=== PATIENT | female | born 1975 | race Caucasian/White ===

== ENCOUNTER 2020-03-20 12:53 | Emergency (ER) | payer OTHER, SELFPAY ==
[2020-03-20 13:09] VITALS: BP 133/77; PULSE 92; RESP 16; TEMP 37.1; O2SAT 100; BMI 28.0
--- NOTE | 2020-03-20 13:56 | ED.GENADULT ---
HPI - General Adult General Chief complaint: General Medical Stated complaint: ?uti Time Seen by Provider: 03/20/20 13:49 Source: patient Mode of arrival: ambulatory History of Present Illness HPI narrative: 44yo F w/PMHx breast CA, neurofibromatosis, cognitive disability, chronic UTIs on Macrobid presenting to ED complaining of dysuria x1 week, fever T-max 102? last night, and left lower quadrant abdominal pain worsening since last night. Family member reports Macrobid no longer covered by insurance, patient has not been taking x1 month. Denies nausea, vomiting, diarrhea, hematuria, vaginal bleeding/discharge, flank pain Related Data Previous Rx's Medication Instructions Recorded sulfamethoxazole 400 1 tab PO BEDTIME 90 Days #90 tab 03/06/20 mg-trimethoprim 80 mg tablet Allergies Allergy/AdvReac Type Severity Reaction Status Date / Time No Known Allergies Allergy Unverified 12/28/19 17:07 [No Known Allergies*] Review of Systems Review of Systems: Constitutional: +Fever, No Chills, No Night Sweats, No Fatigue, No Malaise Cardiovascular: No Chest Pain, No SOB, No Dyspnea on Exertion Respiratory: No Cough, No Sputum, No Wheezing, No Dyspnea Gastrointestinal: No Nausea, No Vomiting, No Diarrhea, No Constipation, + Abdominal pain Genitourinary: No irregular bleeding, +Dysuria, No Urinary Frequency, No Hematuria, No Urgency, No Flank Pain, No Urinary Flow Changes, No Hesitancy Musculoskeletal: No joint pain, No Myalgias, No Joint Swelling Skin: No Skin Lesions, No rash Yes all other systems are reviewed and are negative [facility] Past Medical History Attestation statement: The following information was validated with the patient. Medical History (Updated 03/20/20 @ 15:00 by BRIJESH Clarke) Breast CA Neurofibromatosis Social History Social History Advance Directives: No Advance Directives Information Provided: No Physical Exam Vital Signs: Vital Signs: Last Vital Signs Temp 98.9 F 03/20/20 15:13 Pulse 76 03/20/20 15:13 Resp 18 03/20/20 15:13 BP 124/65 03/20/20 15:13 Pulse Ox 97 03/20/20 15:13 Body Mass Index 28.0 Const: General: cooperative and healthy appearing Limitations: no limitations HENMT: Head: Yes normal to inspection Ears: hearing grossly normal bilaterally General nose exam: Normal external nose present Face and sinus: Yes normal facial exam Eyes: General: appearance normal, both eyes and all related structures EOM: EOMs intact bilaterally Neck: Neck: Yes normal visual inspection Resp: Effort & Inspection: normal respiratory effort Cardio: Rate: regular rate GI: Inspection: Yes normal to inspection Palpation (GI): Soft to palpation, nontender, no guarding and not rigid : General: Yes no CVA tenderness Back/Spine/Pelvis: Back: no CVA tenderness Skin: Rashes: no rashes Wounds: no wounds Neuro: Gait exam (Neuro): Normal gait present Extrem: General: Yes normal to inspection Course Course Course Narrative: -no leukocytosis, H&H at baseline -UA infected > prior urine cultures grew E coli and Klebsiella, Klebsiella resistant to Macrobid, will initiate Ceftin and have patient follow-up with Urology/PCP -[id number]-- AST/ALT mildly elevated, renal function WNL, labs otherwise unremarkable Results discussed with patient and family at bedside including close follow-up with Urology, and worrisome signs and symptoms/strict return precautions. They verbalized understanding of feel safe for discharge home Medical Decision Making [facility] Narrative Medical decision making narrative: 44yo F w/PMHx breast CA, neurofibromatosis, cognitive disability, chronic UTIs on Macrobid presenting to ED complaining of dysuria x1 week, fever T-max 102? last night, and left lower quadrant abdominal pain worsening since last night. On exam VSS, NAD, afebrile, nontoxic appearing, abdomen soft/nontender, no CVAT. Concern for UTI. Low concern for renal stone/pyelo, diverticulitis, or ovarian pathology without tenderness on exam Plan: Labs, UA, reassess. Low concern for severe sepsis Lab Data Result diagrams: 03/20/20 14:34 03/20/20 15:11 Labs: Lab Results 03/20/20 03/20/20 03/20/20 Range/Units 14:34 14:34 14:34 WBC 8.8 (4.8-10.8) X10*3/uL RBC 3.82 L (4.20-5.50) X10*6/uL Hgb 11.5 L (12.0-16.0) g/dl Hct 34.6 L (37-47) % MCV 90.6 (80-98) fL MCH 30.1 (27.0-33.0) pg MCHC 33.2 (31.0-35.0) g/dl RDW 12.7 (11.0-16.0) % Plt Count 195 (160-400) X10*3/uL MPV 11.7 (9.4-12.3) fL Immature Gran % (Auto) 0.3 (0.0-0.4) % Neut % (Auto) 79.3 H (45-73) % Lymph % (Auto) 10.0 L (20-40) % [place] % (Auto) 10.0 (2-11) % Eos % (Auto) 0.1 (0-4) % Baso % (Auto) 0.3 (0-2) % Lymph # (Auto) 0.9 L (1.2-4.9) X10*3/uL [place] # (Auto) 0.9 (0.1-1.2) X10*3/uL Eos # (Auto) 0.0 (0.0-0.4) X10*3/uL Baso # (Auto) 0.0 (0.0-0.2) X10*3/uL Abs Immat Gran (auto) 0.03 (0.00-0.03) X10*3/uL Absolute Neuts (auto) 6.9 (2.0-8.3) X10*3/uL Absolute Nucleated RBC 0.000 (0.0-0.012) X10*3/uL Nucleated RBC % (auto) 0.0 (0.0-0.2) /100WBC Hold Blue Top SEE NOTE Sodium Cancelled Potassium Cancelled Chloride Cancelled Carbon Dioxide Cancelled Anion Gap Cancelled BUN Cancelled Creatinine Cancelled Estim Creat Clear Calc Cancelled Estimated GFR Cancelled Random Glucose Cancelled Calcium Cancelled Magnesium Cancelled Total Bilirubin Cancelled Direct Bilirubin Cancelled AST Cancelled ALT Cancelled Alkaline Phosphatase Cancelled Total Protein Cancelled Albumin Cancelled Lipase Cancelled Urine Color Urine Appearance Urine pH (5.0-8.0) Ur Specific [place] (1.005-1.025) Urine Protein (NEG-TRACE) MG/DL Urine Glucose (UA) (NEG) MG/DL Urine Ketones (NEG) MG/DL Urine Blood (NEG) Urine Nitrite (NEG) Ur Leukocyte Esterase (NEG) Urine RBC (0) /HPF Urine WBC (0-4) /HPF Ur Squamous Epith Cells /LPF Urine Bacteria /LPF 03/20/20 03/20/20 Range/Units 14:34 15:11 WBC (4.8-10.8) X10*3/uL RBC (4.20-5.50) X10*6/uL Hgb (12.0-16.0) g/dl Hct (37-47) % MCV (80-98) fL MCH (27.0-33.0) pg MCHC (31.0-35.0) g/dl RDW (11.0-16.0) % Plt Count (160-400) X10*3/uL MPV (9.4-12.3) fL Immature Gran % (Auto) (0.0-0.4) % Neut % (Auto) (45-73) % Lymph % (Auto) (20-40) % [place] % (Auto) (2-11) % Eos % (Auto) (0-4) % Baso % (Auto) (0-2) % Lymph # (Auto) (1.2-4.9) X10*3/uL [place] # (Auto) (0.1-1.2) X10*3/uL Eos # (Auto) (0.0-0.4) X10*3/uL Baso # (Auto) (0.0-0.2) X10*3/uL Abs Immat Gran (auto) (0.00-0.03) X10*3/uL Absolute Neuts (auto) (2.0-8.3) X10*3/uL Absolute Nucleated RBC (0.0-0.012) X10*3/uL Nucleated RBC % (auto) (0.0-0.2) /100WBC Hold Blue Top Sodium 137 Potassium 3.6 Chloride 104 Carbon Dioxide 24 Anion Gap 13 BUN 8 L Creatinine 0.77 Estim Creat Clear Calc 85.1 Estimated GFR > 60 Random Glucose 84 Calcium 8.3 L Magnesium 1.9 Total Bilirubin 0.9 Direct Bilirubin 0.4 AST 47 H ALT 48 H Alkaline Phosphatase 56 Total Protein 7.4 Albumin 4.1 Lipase 51 Urine Color YELLOW Urine Appearance CLOUDY Urine pH 6.0 (5.0-8.0) Ur Specific [place] 1.020 (1.005-1.025) Urine Protein NEG (NEG-TRACE) MG/DL Urine Glucose (UA) NEG (NEG) MG/DL Urine Ketones 40 (NEG) MG/DL Urine Blood 2+ H (NEG) Urine Nitrite POS H (NEG) Ur Leukocyte Esterase 2+ H (NEG) Urine RBC 1-4 (0) /HPF Urine WBC 30-49 H (0-4) /HPF Ur Squamous Epith Cells 1+ /LPF Urine Bacteria 3+ /LPF Discharge Plan Discharge Clinical Impression: Urinary tract infection Patient Disposition: Home, Self-Care Instructions: Urinary Tract Infection in Women (ED) Prescriptions: No Action sulfamethoxazole-trimethoprim [Bactrim] 400-80 mg tablet 1 tab PO BEDTIME 90 Days Qty: 90 RF: 1
[2020-03-20] MEDS: 0.9 % Sodium Chloride 1,000 ML 999 ML IVCONT (14:35)
[2020-03-20 14:42] LABS: Basophils Percent Auto 0.3 % (0-2); Eosinophils Percent Auto 0.1 % (0-4); Glucose Urine UA NEG (NEG); Hematocrit 34.6 % (37-47); Hemoglobin 11.5 g/dl (12.0-16.0); Imm Gran Abs Auto 0.03 X10*3/uL (0.00-0.03); Imm Gran Pct Auto 0.3 % (0.0-0.4); Leukocyte Esterase Urine 2+ (NEG); Lymphocytes Absolute Auto 0.9 X10*3/uL (1.2-4.9); MANUAL DIFF FLAG NO; Mean Corpuscular HGB Conc 33.2 g/dl (31.0-35.0); Mean Corpuscular Hemoglobin 30.1 pg (27.0-33.0); Mean Corpuscular Volume 90.6 fL (80-98); Mean Platelet Volume 11.7 fL (9.4-12.3); Monocytes Absolute Auto 0.9 X10*3/uL (0.1-1.2); Neutrophils Absolute Auto 6.9 X10*3/uL (2.0-8.3); Neutrophils Percent Auto 79.3 % (45-73); Nitrite Urine POS (NEG); Platelet Count 195 X10*3/uL (160-400); Red Blood Count 3.82 X10*6/uL (4.20-5.50); Red Cell Distribution Width 12.7 % (11.0-16.0); Urine Blood 2+ (NEG); Urine Ketones 40 MG/DL (NEG); Urine Protein NEG (NEG-TRACE); White Blood Count 8.8 X10*3/uL (4.8-10.8)
[2020-03-20 14:44] LABS: Appearance Urine CLOUDY; Color Urine YELLOW
[2020-03-20 14:49] LABS: Bacteria Urine 3+ /LPF; Squamous Epithelial Cell Urine 1+ /LPF; WBC Urine 30-49 /HPF (0-4)
[2020-03-20 15:13] VITALS: BP 124/65; PULSE 76; RESP 18; TEMP 37.2; O2SAT 97
[2020-03-20 15:57] LABS: Alanine Aminotransferase 48 U/L (0-31); Albumin Level 4.1 g/dL (3.5-5.0); Alkaline Phosphatase 56 U/L (39-117); Anion Gap 13 (12-20); Aspartate Amino Transferase 47 U/L (5-31); Bilirubin Direct 0.4 mg/dL (0.0-0.5); Bilirubin Total 0.9 mg/dL (0.0-1.0); Blood Urea Nitrogen 8 mg/dL (9-16); Calcium 8.3 mg/dL (8.4-10.2); Carbon Dioxide 24 mmol/L (22-29); Chloride 104 mmol/L (96-108); Creatinine Clr Calc Pharmacy 85.1; Estimated Glomerular Filt Rate > 60; Glucose Random 84 mg/dL (60-115); Lipase 51 U/L (8-78); Magnesium 1.9 mg/dL (1.6-2.6); Potassium 3.6 mmol/l (3.3-5.1); Sodium 137 mmol/L (135-145); Total Protein 7.4 g/dL (6.5-8.0)
[2020-03-20 16:35] VITALS: BP 132/78; PULSE 85; RESP 18; TEMP 37.7; O2SAT 100
== END 2020-03-20 17:08 | disposition home or self-care (01) ==
PROVIDERS: Physician Assistant; Emergency Provider Emergency Medicine; PCP Internal Medicine
DX: N39.0 Urinary tract infection, site not specified (principal); R10.32 Left lower quadrant pain; Z85.3 Personal history of malignant neoplasm of breast; Z87.440 Personal history of urinary (tract) infections
CPT/HCPCS: 36415; 80048; 80076; 81001; 83690; 83735; 85025; 87086; 87088; 87186; 96360; 99284

== ENCOUNTER → 2020-04-02 13:57 | Outpatient (BNVA) | payer OTHER, SELFPAY | PROVIDERS: PCP Internal Medicine; Visit Provider Urology | DX: N39.0 Urinary tract infection, site not specified (principal) | CPT/HCPCS: 81002; 99212 ==

== ENCOUNTER 2020-04-17 10:09 | Outpatient (REF) | payer OTHER, SELFPAY | END 2020-04-17 10:10 | disposition home or self-care (01) | LOC: HO.LAB 10:09 | PROVIDERS: Visit Provider Internal Medicine | DX: Z20.828 Contact with and (suspected) exposure to other viral communicable diseases (principal) | CPT/HCPCS: 36415; C9803; U0003 ==

== ENCOUNTER → 2020-06-25 10:54 | Outpatient (BNVA) | payer OTHER, SELFPAY | PROVIDERS: PCP Internal Medicine; Visit Provider Surgery | DX: D05.12 Intraductal carcinoma in situ of left breast (principal) | CPT/HCPCS: 99212 ==

== ENCOUNTER 2020-08-02 12:03 | Outpatient (REF) | payer OTHER, SELFPAY ==
--- NOTE | ~2020-08-02 | MM_ITS ---
EXAMINATION: MM DIAGNOSTIC DIGITAL BREAST TOMOSYNTHESIS, LEFT CLINICAL INFORMATION: Left breast DCIS 2019. Probable benign calcifications near surgical scar. COMPARISON: Mammography: 11/22/2019, 03/23/2019, 03/01/2019, 05/16/2018, 05/10/2017 TECHNIQUE: Digital breast tomosynthesis is performed in both the craniocaudal and mediolateral oblique views along with computer-aided detection (CAD). Synthesized 2D images are generated from the tomosynthesis. Magnification CC and magnification ML views are also provided. FINDINGS: There are scattered areas of fibroglandular density (ACR BI-RADS breast composition Category b). There is stable scar central upper outer left breast similar to prior exam. There is no interval mass or architectural abnormality. Some chronic punctate calcifications are again noted left breast. Calcifications are decreased from the presurgical diagnostic mammography as expected. Results are provided to the patient at time of visit by the technologist. MM/MM tomosynthesis diagnostic LT IMPRESSION: Postsurgical changes left breast. Residual calcifications similar to prior exams. ASSESSMENT: BI-RADS 2: Benign RECOMMENDATION: Annual bilateral mammography, due in 6 months. This patient's information was entered into a reminder system with a target due date for their next mammogram.
== END 2020-08-02 12:04 | disposition home or self-care (01) ==
LOC: HO.MAMMO 12:03
PROVIDERS: Visit Provider Internal Medicine
DX: R92.1 Mammographic calcification found on diagnostic imaging of breast (principal)
CPT/HCPCS: 77061; 77065

== ENCOUNTER 2020-09-28 12:33 | Emergency (ER) | payer OTHER, SELFPAY ==
[2020-09-28 13:44] VITALS: BP 149/86; PULSE 73; RESP 16; TEMP 37.2; O2SAT 100; BMI 26.5
[2020-09-28] MEDS: cephALEXin 500 MG CAPSULE PO (14:41)
[2020-09-28] MEDS: Sulfacetamide Sodium 10 % Oph 15 ML DRBTL 2 DROP EYE-RIGHT (14:41)
--- NOTE | 2020-09-28 14:46 | ED.GENADULT ---
HPI - General Adult General Chief complaint: Eye Problems Stated complaint: swollen rt eye Time Seen by Provider: 09/28/20 14:28 History of Present Illness HPI narrative: Patient complains of redness mild swelling and mild discomfort around the right eye as well as a discharge from the eye which started this morning There is no vision loss there is no pain in the eye itself there is no photophobia, no fever no chills Related Data Home Medications Medication Instructions Recorded Confirmed tamoxifen 20 mg PO DAILY 04/23/20 07/09/20 tamsulosin 0.4 mg capsule 0.4 mg PO DAILY 06/25/20 07/09/20 Previous Rx's Medication Instructions Recorded cephalexin 500 mg PO QID 7 Days #28 tab 09/28/20 sulfacetamide sodium 2 drp OPHTHALMIC-LEFT Q3H 5 Days 09/28/20 #5 ml Allergies Allergy/AdvReac Type Severity Reaction Status Date / Time No Known Allergies Allergy Verified 07/09/20 14:13 [No Known Allergies*] Review of Systems Review of Systems: Positive for right eye redness and discharge as well as redness and mild swelling below the right eye Negatives are no fever no chills no dizziness no weakness no fainting no feeling faint no headache no ear pain no eye pain or vision loss no photophobia no runny nose no sore throat no cough no other rash Yes all other systems are reviewed and are negative PMFSH Past Medical History Source: nursing notes reviewed Medical History (Updated 09/28/20 @ 14:36 by BRIJESH Wheeler) Breast CA Cellulitis Cognitive deficits Congenital defect Migraine headache Neurofibromatosis Recurrent UTI Surgical History History of bilateral breast biopsy (06/27/15) History of excision of lesion History of excision of mass (09/2017) History of left breast biopsy (03/01/19) History of lithotripsy (03/2018) History of local excision of skin lesion (08/17/17) History of lumpectomy of left breast (03/23/19) History of right breast biopsy (08/2015) History of tubal ligation Family History Family History (Updated 07/09/20 @ 14:17 by Rhiannon Bloom MD) Father History of diabetes mellitus CAD (coronary artery disease) Mother History of hypertension History of diabetes mellitus Social History Social History Alcohol intake: never Advance Directives: No Advance Directives Information Provided: No Patient : No Physical Exam Vital Signs: Vital Signs: Last Vital Signs Temp 98.9 F 09/28/20 13:44 Pulse 73 09/28/20 13:44 Resp 16 09/28/20 13:44 BP 149/86 H 09/28/20 13:44 Pulse Ox 100 09/28/20 13:44 Body Mass Index 26.5 General appearance is comfortable no acute distress The eye exam visual acuity is is 20/40 bilateral The right eye was red in the conjunctiva, there was no photophobia the pupils are equal round reactive to light extraocular motions were intact The periorbital tissue below the right eye is mildly red and mildly tender, the skin is intact The left eye was normal in appearance Neck is supple Respiratory no distress Extremities full range of motion x4 Skin no other rash Course Course Course Narrative: Patient is treated for possible early periorbital cellulitis, doubt allergies as it is only in 1 eye and she is also treated for conjunctivitis with sulfacetamide Discharge Plan Discharge Clinical Impression: Periorbital cellulitis of right eye Conjunctivitis Qualifiers: Conjunctivitis type: unspecified Laterality: right Qualified Code(s): H10.9 - Unspecified conjunctivitis Patient Disposition: Home, Self-Care Additional Instructions: We are treating for an infection of the skin around the eye as well as conjunctivitis in the eye Use antibiotic and drops as prescribed Follow with primary doctor in 2-3 days if not better or if he is unavailable return to us for recheck Return any time for eye pain, vision loss, fever, chills, spreading redness, any worse condition or any concerns Prescriptions: New cephalexin 500 mg tablet 500 mg PO QID 7 Days Qty: 28 RF: 0 sulfacetamide sodium 10 % drops 2 drp ophthalmic-Left Q3H 5 Days Qty: 5 RF: 0 No Action tamoxifen 20 mg Tablet 20 mg PO DAILY RF: 0 tamsulosin 0.4 mg capsule 0.4 mg PO DAILY RF: 0 Interventions: ED Discharge Assessment Last Done: 09/28/20 14:45 Discharge Date/Time: 09/28/20 14:45
== END 2020-09-28 14:45 | disposition home or self-care (01) ==
PROVIDERS: Emergency Provider Emergency Medicine; PCP Internal Medicine
DX: L03.213 Periorbital cellulitis (principal); H10.9 Unspecified conjunctivitis
CPT/HCPCS: 99283

== ENCOUNTER 2020-10-04 10:23 | Outpatient (REF) | payer OTHER, SELFPAY ==
[2020-10-04 12:05] LABS: Alanine Aminotransferase 18 U/L (0-31); Alkaline Phosphatase 72 U/L (39-117); Anion Gap 11 (12-20); Aspartate Amino Transferase 18 U/L (5-31); Bilirubin Total 0.6 mg/dL (0.0-1.0); Blood Urea Nitrogen 11 mg/dL (9-16); Carbon Dioxide 24 mmol/L (22-29); Chloride 108 mmol/L (96-108); Cholesterol 198 mg/dL; Estimated Glomerular Filt Rate > 60; Glucose Fasting 79 mg/dL (60-99); HDL Cholesterol 52 mg/dL; LDL Cholesterol Calculated 131 mg/dl; Potassium 4.1 mmol/L (3.3-5.1); Sodium 139 mmol/L (135-145); Total Protein 7.1 g/dL (6.5-8.0); Triglycerides 79 mg/dL
== END 2020-10-04 10:24 | disposition home or self-care (01) ==
LOC: HO.LAB 10:23
PROVIDERS: PCP Internal Medicine; Visit Provider Internal Medicine
DX: Q85.00 Neurofibromatosis, unspecified (principal); E78.5 Hyperlipidemia, unspecified
CPT/HCPCS: 36415; 80053; 80061

== ENCOUNTER → 2020-10-21 10:20 | Outpatient (BNV) | payer OTHER, SELFPAY | PROVIDERS: PCP Internal Medicine; Visit Provider Internal Medicine | DX: D05.12 Intraductal carcinoma in situ of left breast (principal) | CPT/HCPCS: 99213; 99214; G2211 ==

== ENCOUNTER 2020-11-22 12:47 | Outpatient (REF) | payer OTHER, SELFPAY | END 2020-11-22 12:48 | disposition home or self-care (01) | LOC: HO.LAB 12:47 | PROVIDERS: Visit Provider Advanced Practice Midwife | DX: Z01.419 Encounter for gynecological examination (general) (routine) without abnormal findings (principal); R30.0 Dysuria; D05.12 Intraductal carcinoma in situ of left breast; Z79.899 Other long term (current) drug therapy | CPT/HCPCS: 87086; 87088; 87186 ==

== ENCOUNTER 2020-12-18 13:01 | Outpatient (REF) | payer OTHER, SELFPAY ==
[2020-12-18 15:11] LABS: Appearance Urine CLEAR; Color Urine STRAW; Glucose Urine UA NEG (NEG); Leukocyte Esterase Urine NEG (NEG); Nitrite Urine NEG (NEG); Specific Gravity - Urine <= 1.005 (1.005-1.025); Urine Blood NEG (NEG); Urine Ketones NEG (NEG); Urine Protein NEG (NEG-TRACE)
== END 2020-12-18 13:02 | disposition home or self-care (01) ==
LOC: HO.LAB 13:01
PROVIDERS: PCP Internal Medicine; Visit Provider Internal Medicine
DX: N39.0 Urinary tract infection, site not specified (principal)
CPT/HCPCS: 81003

== ENCOUNTER → 2020-12-25 14:02 | Outpatient (BNVA) | payer OTHER, SELFPAY | PROVIDERS: PCP Internal Medicine | DX: N39.0 Urinary tract infection, site not specified (principal) | CPT/HCPCS: Q3014 ==

== ENCOUNTER → 2020-12-31 11:29 | Outpatient (BNVA) | payer OTHER, SELFPAY | PROVIDERS: PCP Internal Medicine; Visit Provider Surgery | DX: D05.12 Intraductal carcinoma in situ of left breast (principal) | CPT/HCPCS: 99212 ==

== ENCOUNTER 2021-01-06 13:59 | Outpatient (REF) | payer OTHER, SELFPAY | END 2021-01-06 14:00 | disposition home or self-care (01) | LOC: HO.LAB 13:59 | PROVIDERS: PCP Internal Medicine | DX: R30.0 Dysuria (principal) | CPT/HCPCS: 87086; 87088; 87186 ==

== ENCOUNTER 2021-02-13 12:00 | Emergency (ER) | payer OTHER, SELFPAY ==
[2021-02-13 12:39] VITALS: BP 131/60; PULSE 83; RESP 16; TEMP 37.2; O2SAT 100; BMI 30.2
--- NOTE | 2021-02-13 14:07 | ED_ITS ---
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 Came in for evaluation of frequency urination, bad odor urine, subjective low-grade fever. Declines any chest/abdominal pain, no flank pain, symptoms are constant, patient had history of UTI which is similar to today's symptoms. Related Data Home Medications Medication Instructions Recorded Confirmed tamoxifen 20 mg tablet 20 mg PO DAILY 04/23/20 11/22/20 tamsulosin 0.4 mg capsule 0.4 mg PO DAILY 06/25/20 11/22/20 Previous Rx's Medication Instructions Recorded sulfamethoxazole 800 1 tab PO Q12H #14 tab 11/25/20 mg-trimethoprim 160 mg tablet (Bactrim DS) nitrofurantoin 100 mg PO Q12H 7 Days #14 cap 02/13/21 monohydrate/macrocrystals 100 mg capsule (Macrobid) Allergies Allergy/AdvReac Type Severity Reaction Status Date / Time No Known Allergies Allergy Verified 12/31/20 11:53 [No Known Allergies*] Review of Systems Review of Systems: All other systems are reviewed and are negative Constitutional: Reports as per HPI and Reports no additional constitutional complaints Eyes: Reports as per HPI and Reports no additional eye complaints Reports system reviewed and no additional complaints, except as documented Cardiovascular: Reports as per HPI and Reports no additional cardiovascular complaints Respiratory: Reports as per HPI and Reports no additional respiratory complaints Gastrointestinal: Reports as per HPI and Reports no additional gastrointestinal complaints Genitourinary: Reports no additional female genitourinary complaints Musculoskeletal: Reports no additional musculoskeletal complaints Skin/Breast: Reports system reviewed and no additional complaints, except as docu Psychiatric: Reports no additional psychiatric complaints Endocrine: Reports no additional endocrine complaints Hematologic/Lymphatic: Reports no additional hematologic/lymphatic complaints Allergic/Immunologic: Reports no additional allergic/immunologic complaints Reports system reviewed and no additional complaints, except as documented and Reports Abnormal speech present [facility] Past Medical History Medical History Breast CA Cellulitis Cognitive deficits Congenital defect Migraine headache Neurofibromatosis Periorbital cellulitis of right eye Recurrent UTI Surgical History History of bilateral breast biopsy (06/27/15) History of excision of lesion History of excision of mass (09/2017) History of left breast biopsy (03/01/19) History of lithotripsy (03/2018) History of local excision of skin lesion (08/17/17) History of lumpectomy of left breast (03/23/19) History of right breast biopsy (08/2015) History of tubal ligation Family History Family History Father History of diabetes mellitus CAD (coronary artery disease) Mother History of hypertension History of diabetes mellitus Social History Social History Housing: Apartment Alcohol intake: unknown Patient Tobacco Use Status: Never used Tobacco e-Cigarette/Vaping Use: Never Used Second Hand Smoke Exposure: No Use of substances other than those prescribed or required for medical reasons: No Advance Directives: No Advance Directives Information Provided: No service: No Current occupational status: unemployed Physical Exam Vital Signs: Vital Signs: Last Vital Signs Temp 99 F 02/13/21 12:39 Pulse 83 02/13/21 12:39 Resp 16 02/13/21 12:39 BP 131/60 02/13/21 12:39 Pulse Ox 100 02/13/21 12:39 Body Mass Index 30.2 Vital signs have been reviewed as appeared to be correct. Blood pressure normal. Heart rate normal. Respiration rate normal. Temperature normal. Oxygen saturation normal. Appearance: Alert. Oriented X3. No acute distress. Head: Normal external exam. Normocephalic. Atraumatic. No Daniel signs noted. No raccoon eyes noted Eyes: PERRLA. EOMI. Conjunctiva and sclera normal. Eyelids normal. ENT: TM's Normal. Pharynx normal. Uvula midline. Moist mucous membranes. No trismus noted. No drooling noted. No muffled voice noted. Neck: Normal inspection. Neck supple. FROM. No adenopathy. Thyroid Normal. No meningeal signs. No neck mass noted. CVS: Normal heart rate and rhythm. Heart sound normal. No murmurs noted. Pulses normal throughout. Respiratory: No respiratory distress. Painless inspiration. Breath sounds normal. No wheezes/rales/rhonchi noted. Chest nontender. No accessory muscle usage noted or decreased air movement noted. Abdomen: Soft and nontender. Bowel sounds normal in all 4 quadrants. No distention noted. No organomegaly noted. No visible injury noted. Back: No CVA tenderness. Full range of motion noted. Skin: Skin warm and dry. Normal skin color. Normal skin turgor. No rashes/lesions/lacerations noted. Extremities: No lower extremity edema. Extremities exhibit normal range of motion. Extremities nontender. Neuro: Oriented X 3. Cranial nerve exam: II-XII are grossly intact No motor deficit. No sensory deficit. Reflexes normal. Course Course Course Narrative: Assessment and plan. Patient came for a simple UTI, no sign of sepsis or severe sepsis. Since the patient on Macrobid. MDM - Female Genitourinary Medical Records Attestation: I reviewed the patient's medical records. Lab Data Attestation: I reviewed the patient's lab results. Result diagrams: 02/13/21 14:22 02/13/21 14:22 Labs: Lab Results 02/13/21 02/13/21 02/13/21 Range/Units 14:22 14:22 14:22 WBC 7.9 (4.8-10.8) X10*3/uL RBC 4.00 L (4.20-5.50) X10*6/uL Hgb 11.8 L (12.0-16.0) g/dl Hct 36.1 L (37.0-47.0) % MCV 90.3 (80.0-98.0) fL MCH 29.5 (27.0-33.0) pg MCHC 32.7 (31.0-35.0) g/dl RDW 12.8 (11.0-16.0) % Plt Count 183 (160-400) X10*3/uL MPV 11.6 (9.4-12.3) fL Immature Gran % (Auto) 0.4 (0.0-0.4) % Neut % (Auto) 82.7 H (45-73) % Lymph % (Auto) 9.2 L (20-40) % [place] % (Auto) 7.3 (2-11) % Eos % (Auto) 0.1 (0-4) % Baso % (Auto) 0.3 (0-2) % Lymph # (Auto) 0.7 L (1.2-4.9) X10*3/uL [place] # (Auto) 0.6 (0.1-1.2) X10*3/uL Eos # (Auto) 0.0 (0.0-0.4) X10*3/uL Baso # (Auto) 0.0 (0.0-0.2) X10*3/uL Abs Immat Gran (auto) 0.03 (0.00-0.03) X10*3/uL Absolute Neuts (auto) 6.56 (2.0-8.3) x10*3/uL Absolute Nucleated RBC 0.000 (0.0-0.012) X10*3/uL Nucleated RBC % (auto) 0.0 (0.0-0.2) /100WBC Sodium 140 (135-145) mmol/L Potassium 3.9 (3.3-5.1) mmol/L Chloride 108 (96-108) mmol/L Carbon Dioxide 23 (22-29) mmol/L Anion Gap 13 (12-20) BUN 9 (9-16) mg/dL Creatinine 0.85 (0.5-1.4) mg/dL Estim Creat Clear Calc 79.1 Estimated GFR > 60 Random Glucose 91 (60-115) mg/dL Lactic Acid 1.2 (0.5-2.0) mmol/L Calcium 9.1 (8.4-10.2) mg/dL Total Bilirubin 1.4 H (0.0-1.0) mg/dL Direct Bilirubin 0.5 (0.0-0.5) mg/dL AST 59 H (5-31) U/L ALT 58 H (0-31) U/L Alkaline Phosphatase 67 (39-117) U/L Total Protein 7.5 (6.5-8.0) g/dL Albumin 4.3 (3.5-5.0) g/dL Lipase 10 (8-78) U/L Urine Color Urine Appearance Urine pH (5.0-8.0) Ur Specific [place] (1.005-1.025) Urine Protein (NEG-TRACE) MG/DL Urine Glucose (UA) (NEG) MG/DL Urine Ketones (NEG) MG/DL Urine Blood (NEG) Urine Nitrite (NEG) Ur Leukocyte Esterase (NEG) Urine RBC (0) /HPF Urine WBC (0-4) /HPF Ur Squamous Epith Cells /LPF Urine Bacteria /LPF Urine Test (NEGATIVE) 02/13/21 02/13/21 Range/Units 14:22 14:22 WBC (4.8-10.8) X10*3/uL RBC (4.20-5.50) X10*6/uL Hgb (12.0-16.0) g/dl Hct (37.0-47.0) % MCV (80.0-98.0) fL MCH (27.0-33.0) pg MCHC (31.0-35.0) g/dl RDW (11.0-16.0) % Plt Count (160-400) X10*3/uL MPV (9.4-12.3) fL Immature Gran % (Auto) (0.0-0.4) % Neut % (Auto) (45-73) % Lymph % (Auto) (20-40) % [place] % (Auto) (2-11) % Eos % (Auto) (0-4) % Baso % (Auto) (0-2) % Lymph # (Auto) (1.2-4.9) X10*3/uL [place] # (Auto) (0.1-1.2) X10*3/uL Eos # (Auto) (0.0-0.4) X10*3/uL Baso # (Auto) (0.0-0.2) X10*3/uL Abs Immat Gran (auto) (0.00-0.03) X10*3/uL Absolute Neuts (auto) (2.0-8.3) x10*3/uL Absolute Nucleated RBC (0.0-0.012) X10*3/uL Nucleated RBC % (auto) (0.0-0.2) /100WBC Sodium (135-145) mmol/L Potassium (3.3-5.1) mmol/L Chloride (96-108) mmol/L Carbon Dioxide (22-29) mmol/L Anion Gap (12-20) BUN (9-16) mg/dL Creatinine (0.5-1.4) mg/dL Estim Creat Clear Calc Estimated GFR Random Glucose (60-115) mg/dL Lactic Acid (0.5-2.0) mmol/L Calcium (8.4-10.2) mg/dL Total Bilirubin (0.0-1.0) mg/dL Direct Bilirubin (0.0-0.5) mg/dL AST (5-31) U/L ALT (0-31) U/L Alkaline Phosphatase (39-117) U/L Total Protein (6.5-8.0) g/dL Albumin (3.5-5.0) g/dL Lipase (8-78) U/L Urine Color YELLOW Urine Appearance HAZY Urine pH 6.0 (5.0-8.0) Ur Specific [place] 1.020 (1.005-1.025) Urine Protein NEG (NEG-TRACE) MG/DL Urine Glucose (UA) NEG (NEG) MG/DL Urine Ketones 5 (NEG) MG/DL Urine Blood TRACE (NEG) Urine Nitrite POS H (NEG) Ur Leukocyte Esterase 2+ H (NEG) Urine RBC 1-4 (0) /HPF Urine WBC 30-49 H (0-4) /HPF Ur Squamous Epith Cells 2+ /LPF Urine Bacteria 4+ /LPF Urine Test NEGATIVE (NEGATIVE) Discharge Plan Discharge Clinical Impression: Urinary tract infection Patient Disposition: Home, Self-Care Instructions: Urinary Tract Infection in Women (ED) Prescriptions: New nitrofurantoin monohyd/m-cryst [Macrobid] 100 mg capsule 100 mg PO Q12H 7 Days Qty: 14 RF: 0 No Action sulfamethoxazole-trimethoprim [Bactrim DS] 800-160 mg tablet 1 tab PO Q12H Qty: 14 RF: 0 tamoxifen 20 mg Tablet 20 mg PO DAILY RF: 0 tamsulosin 0.4 mg capsule 0.4 mg PO DAILY RF: 0
[2021-02-13] MEDS: 0.9 % Sodium Chloride 1,000 ML 999 ML IVCONT (14:26)
[2021-02-13 14:31] LABS: MANUAL DIFF FLAG NO
[2021-02-13 14:34] LABS: Basophils Percent Auto 0.3 % (0-2); Eosinophils Percent Auto 0.1 % (0-4); Hematocrit 36.1 % (37.0-47.0); Hemoglobin 11.8 g/dl (12.0-16.0); Imm Gran Abs Auto 0.03 X10*3/uL (0.00-0.03); Imm Gran Pct Auto 0.4 % (0.0-0.4); Lymphocytes Absolute Auto 0.7 X10*3/uL (1.2-4.9); Lymphocytes Percent Auto 9.2 % (20-40); Mean Corpuscular HGB Conc 32.7 g/dl (31.0-35.0); Mean Corpuscular Hemoglobin 29.5 pg (27.0-33.0); Mean Corpuscular Volume 90.3 fL (80.0-98.0); Mean Platelet Volume 11.6 fL (9.4-12.3); Monocytes Absolute Auto 0.6 X10*3/uL (0.1-1.2); Monocytes Percent Auto 7.3 % (2-11); Neutrophils Absolute Auto 6.56 x10*3/uL (2.0-8.3); Neutrophils Percent Auto 82.7 % (45-73); Platelet Count 183 X10*3/uL (160-400); Red Cell Distribution Width 12.8 % (11.0-16.0); White Blood Count 7.9 X10*3/uL (4.8-10.8)
[2021-02-13 14:40] LABS: Appearance Urine HAZY; Color Urine YELLOW; Glucose Urine UA NEG (NEG); Leukocyte Esterase Urine 2+ (NEG); Nitrite Urine POS (NEG); UACC Culture Trigger YES; UPreg QC Valid YES; Urine Blood TRACE (NEG); Urine Ketones 5 MG/DL (NEG); Urine Pregnancy NEGATIVE (NEGATIVE); Urine Protein NEG (NEG-TRACE)
[2021-02-13 14:43] LABS: Lactic Acid 1.2 mmol/L (0.5-2.0)
[2021-02-13 14:48] LABS: Alanine Aminotransferase 58 U/L (0-31); Albumin Level 4.3 g/dL (3.5-5.0); Alkaline Phosphatase 67 U/L (39-117); Anion Gap 13 (12-20); Aspartate Amino Transferase 59 U/L (5-31); Bilirubin Direct 0.5 mg/dL (0.0-0.5); Bilirubin Total 1.4 mg/dL (0.0-1.0); Blood Urea Nitrogen 9 mg/dL (9-16); Calcium 9.1 mg/dL (8.4-10.2); Carbon Dioxide 23 mmol/L (22-29); Chloride 108 mmol/L (96-108); Creatinine Clr Calc Pharmacy 79.1; Estimated Glomerular Filt Rate > 60; Glucose Random 91 mg/dL (60-115); Lipase 10 U/L (8-78); Potassium 3.9 mmol/L (3.3-5.1); Sodium 140 mmol/L (135-145); Total Protein 7.5 g/dL (6.5-8.0)
[2021-02-13 14:53] LABS: Bacteria Urine 4+ /LPF; Squamous Epithelial Cell Urine 2+ /LPF; WBC Urine 30-49 /HPF (0-4)
== END 2021-02-13 15:51 | disposition home or self-care (01) ==
PROVIDERS: Emergency Provider Emergency Medicine; PCP Internal Medicine
DX: N39.0 Urinary tract infection, site not specified (principal)
CPT/HCPCS: 36415; 80048; 80076; 81001; 81025; 83605; 83690; 85025; 87040; 87086; 87088; 87186; 96360; 99284

== ENCOUNTER 2021-02-25 14:02 | Outpatient (REF) | payer OTHER, SELFPAY ==
--- NOTE | ~2021-02-25 | MM_ITS ---
EXAMINATION: MM DIAGNOSTIC DIGITAL BREAST TOMOSYNTHESIS, BILATERAL CLINICAL INFORMATION: Left lumpectomy 03/23/2019 (DCIS involving a radial sclerosing lesion; also ALH, LCIS). COMPARISON: Mammography: 08/02/2020, 11/22/2019, 03/23/2019, 03/01/2019, 05/16/2018, 05/10/2017 TECHNIQUE: Digital breast tomosynthesis is performed in both the craniocaudal and mediolateral oblique views along with computer-aided detection (CAD). Synthesized 2D images are generated from the tomosynthesis. Additional magnification left CC and magnification left ML views are obtained. FINDINGS: There are scattered areas of fibroglandular density (ACR BI-RADS breast composition Category b). There are post therapy changes left breast with mild reduced breast size and stable scarring upper outer quadrant. Bilateral punctate calcifications are again seen. Neither breast shows interval mass or architectural abnormality or interval abnormal calcifications. No significant changes. Results are provided to the patient at time of visit by the technologist. MM/MM tomosynthesis diagnostic BI IMPRESSION: No mammographic evidence of malignancy. Post therapy changes left breast. ASSESSMENT: BI-RADS 2: Benign RECOMMENDATION: Annual bilateral mammography. This patient's information was entered into a reminder system with a target due date for their next mammogram.
== END 2021-02-25 14:03 | disposition home or self-care (01) ==
LOC: HO.MAMMO 14:02
PROVIDERS: PCP Family Medicine; Visit Provider Surgery
DX: D05.12 Intraductal carcinoma in situ of left breast (principal)
CPT/HCPCS: 77062; 77066

== ENCOUNTER 2021-02-26 10:58 | Outpatient (REF) | payer OTHER, SELFPAY ==
[2021-02-26 12:55] LABS: HBsAGNum1 0.14 S/CO (0.00-0.99); Hepatitis A Antibody IgM 0.09 Index (0-0.79); Hepatitis B Surface Antigen Negative (Negative); ~Hepatitis A Antibody IgM Nonreactive (Nonreactive); ~Hepatitis C Antibody Nonreactive (Nonreactive)
[2021-02-26 12:59] LABS: HBc Num1 0.11 S/CO (0.00-0.79); Hepatitis B Core Antibody Nonreactive (Nonreactive); ~Hepatitis B Surface Antibody REACTIVE (Nonreactive)
== END 2021-02-26 10:59 | disposition home or self-care (01) ==
LOC: HO.LAB 10:58
PROVIDERS: PCP Internal Medicine; Visit Provider Nurse Practitioner Family
DX: R79.89 Other specified abnormal findings of blood chemistry (principal)
CPT/HCPCS: 36415; 86704; 86706; 86709; 86803; 87340

== ENCOUNTER 2021-02-26 17:50 | Outpatient (REF) | payer OTHER, SELFPAY | END 2021-02-26 17:51 | disposition home or self-care (01) | LOC: HO.MAMMO 17:50 | PROVIDERS: PCP Nurse Practitioner Family; Visit Provider Internal Medicine | DX: R10.2 Pelvic and perineal pain (principal) | CPT/HCPCS: 87086; 87088; 87186 ==

== ENCOUNTER 2021-03-12 10:05 | Outpatient (REF) | payer OTHER, SELFPAY ==
--- NOTE | ~2021-03-12 | US_ITS ---
EXAMINATION: US RENAL BILATERAL CLINICAL INFORMATION: Calculus of kidney. COMPARISON: Renal ultrasound 02/13/2019 and 06/21/2018. X-ray abdomen KUB 06/01/2018. CT abdomen and pelvis 05/06/2018. TECHNIQUE: Real-time imaging of the kidneys. FINDINGS: RIGHT KIDNEY: 11.1 x 4.4 x 6.5 cm (SAG x AP x TRV). The kidney is normal in size, contour, and echogenicity. Renal cortical thickness is normal. No calculi or focal parenchymal lesions. No hydronephrosis. LEFT KIDNEY: 12.1 x 4.5 x 4.2 cm (SAG x AP x TRV). The kidney is normal in size, contour, and echogenicity. Renal cortical thickness is normal. No calculi or focal parenchymal lesions. No hydronephrosis. 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 Previous ultrasound visualized cyst in the midpole left kidney is not seen at this time. 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 Suspect small mild fullness in the left kidney lower pole versus extrarenal pelvis. This finding is new, as well. Previously seen cyst in the midpole left kidney is not seen at this time. The right kidney is unremarkable.
== END 2021-03-12 10:06 | disposition home or self-care (01) ==
LOC: HO.US 10:05
PROVIDERS: PCP Internal Medicine
DX: N20.0 Calculus of kidney (principal)
CPT/HCPCS: 76775

== ENCOUNTER → 2021-03-26 13:06 | Outpatient (BNVA) | payer OTHER, SELFPAY | PROVIDERS: PCP Internal Medicine | DX: N39.0 Urinary tract infection, site not specified (principal); N20.0 Calculus of kidney | CPT/HCPCS: 99212 ==

== ENCOUNTER 2021-07-31 16:03 | Outpatient (REF) | payer OTHER, SELFPAY ==
--- NOTE | ~2021-07-31 | US_ITS ---
EXAMINATION: US RETROPERITONEAL LIMITED (RENAL ONLY) CLINICAL INFORMATION: Renal calculus. COMPARISON: Renal ultrasound 03/12/2021 and 02/13/2019. X-ray KUB 06/01/2018 and 03/16/2018. CT abdomen and pelvis 05/06/2018. TECHNIQUE: Real-time imaging of the kidneys. FINDINGS: RIGHT KIDNEY: 11.2 x 5.2 x 5.5 cm (SAG x AP x TRV). The kidney is normal in size, contour, and echogenicity. Renal cortical thickness is normal. No calculi or focal parenchymal lesions. No hydronephrosis. LEFT KIDNEY: 11.3 x 6.0 x 4.2 cm (SAG x AP x TRV). The kidney is normal in size, contour, and echogenicity. Renal cortical thickness is normal. No calculi or focal parenchymal lesions. No hydronephrosis. There is an extrarenal left pelvis noted. US/US renal BI IMPRESSION: Unremarkable kidneys except for a small extrarenal left renal pelvis.
== END 2021-07-31 16:04 | disposition home or self-care (01) ==
LOC: HO.US 16:03
PROVIDERS: Visit Provider Urology
DX: N20.0 Calculus of kidney (principal)
CPT/HCPCS: 76775

== ENCOUNTER → 2021-08-01 10:45 | Outpatient (BNVA) | payer OTHER, SELFPAY | PROVIDERS: PCP Internal Medicine; Referring Provider Internal Medicine; Visit Provider Surgery | DX: D05.12 Intraductal carcinoma in situ of left breast (principal) | CPT/HCPCS: 99212 ==

== ENCOUNTER → 2021-10-16 12:47 | Outpatient (BNVA) | payer OTHER, SELFPAY | PROVIDERS: PCP Internal Medicine | DX: N20.0 Calculus of kidney (principal) | CPT/HCPCS: 99212 ==

== ENCOUNTER 2021-12-11 14:35 | Outpatient (REF) | payer OTHER, SELFPAY ==
--- NOTE | ~2021-12-11 | MR_ITS ---
EXAMINATION: MR BRAIN WITHOUT CONTRAST CLINICAL INFORMATION: New daily headache. COMPARISON: None available. TECHNIQUE: MRI of the brain was obtained using routine sequences without contrast. FINDINGS: No focal restricted diffusion is demonstrated to suggest acute or subacute cerebral ischemia. No evidence of acute or chronic hemorrhagic products on heme-sensitive imaging. Few nonspecific scattered periventricular and deep white matter T2 FLAIR hyperintensities. The ventricles are normal in morphology and size. No abnormal mass effect. No midline shift. Normal appearance of the pituitary gland. Normal positioning of the cerebellar tonsils. Normal arterial and venous vascular flow voids are present. Normal, homogeneous marrow signal. Mild mucosal thickening of the paranasal sinuses. No signal abnormalities within the mastoids. MR/MR head/brain wo con IMPRESSION: 1. No acute intracranial abnormalities. 2. Minimal nonspecific white matter changes.
== END 2021-12-11 14:36 | disposition home or self-care (01) ==
LOC: HO.MRI 14:35
PROVIDERS: Visit Provider Internal Medicine
DX: G44.52 New daily persistent headache (NDPH) (principal)
CPT/HCPCS: 70551

== ENCOUNTER → 2022-02-03 09:38 | Outpatient (BNVA) | payer OTHER, SELFPAY | PROVIDERS: PCP Internal Medicine; Visit Provider Surgery | DX: D05.12 Intraductal carcinoma in situ of left breast (principal) | CPT/HCPCS: 99212 ==

== ENCOUNTER 2022-02-17 14:42 | Outpatient (REF) | payer OTHER, SELFPAY ==
--- NOTE | ~2022-02-17 | MM_ITS ---
EXAMINATION: MM DIAGNOSTIC DIGITAL BREAST TOMOSYNTHESIS, BILATERAL CLINICAL INFORMATION: Due for yearly. 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 COMPARISON: Mammography: 02/25/2021, 08/02/2020, 11/22/2019, 03/23/2019, 03/01/2019, 05/16/2018 TECHNIQUE: Digital breast tomosynthesis is performed in both the craniocaudal and mediolateral oblique views along with computer-aided detection (CAD). Synthesized 2D images are generated from the tomosynthesis. Additional magnification left CC and magnification left ML views are obtained. FINDINGS: There are scattered areas of fibroglandular density (ACR BI-RADS breast composition Category b). There are post therapy changes left breast with mild reduced breast size and stable scarring. Scattered bilateral punctate fine round calcifications are again noted. There is no interval mass or architectural abnormality or developing density. The axilla are unremarkable. No significant changes. Results are provided to the patient at time of visit by the technologist. MM/MM tomosynthesis diagnostic BI IMPRESSION: -No mammographic evidence of malignancy. -Post therapy changes left breast. ASSESSMENT: BI-RADS 2: Benign RECOMMENDATION: Annual bilateral mammography. This patient's information was entered into a reminder system with a target due date for their next mammogram.
== END 2022-02-17 14:43 | disposition home or self-care (01) ==
LOC: HO.MAMMO 14:42
PROVIDERS: PCP Internal Medicine; Visit Provider Surgery
DX: D05.12 Intraductal carcinoma in situ of left breast (principal)
CPT/HCPCS: 77062; 77066

== ENCOUNTER 2022-07-22 10:06 | Outpatient (REF) | payer OTHER, SELFPAY ==
[2022-07-22 12:02] LABS: Alanine Aminotransferase 20 U/L (0-31); Alkaline Phosphatase 69 U/L (39-117); Anion Gap 11 (12-20); Aspartate Amino Transferase 17 U/L (5-31); Bilirubin Total 0.7 mg/dL (0.0-1.0); Blood Urea Nitrogen 10 mg/dL (9-16); Calcium 9.1 mg/dL (8.4-10.2); Carbon Dioxide 25 mmol/L (22-29); Chloride 108 mmol/L (96-108); Cholesterol 201 mg/dL; Estimated Glomerular Filt Rate > 60; Glucose Fasting 76 mg/dL (60-99); HDL Cholesterol 43 mg/dL; LDL Cholesterol Calculated 135 mg/dl; Potassium 3.8 mmol/L (3.3-5.1); Sodium 140 mmol/L (135-145); Total Protein 6.9 g/dL (6.5-8.0); Triglycerides 117 mg/dL
== END 2022-07-22 10:07 | disposition home or self-care (01) ==
LOC: HO.LAB 10:06
PROVIDERS: PCP Internal Medicine; Visit Provider Internal Medicine
DX: Z00.00 Encounter for general adult medical examination without abnormal findings (principal)
CPT/HCPCS: 36415; 80053; 80061

== ENCOUNTER → 2022-07-28 10:39 | Outpatient (BNVA) | payer OTHER, SELFPAY | PROVIDERS: PCP Internal Medicine; Visit Provider Surgery | DX: D05.12 Intraductal carcinoma in situ of left breast (principal); N60.91 Unspecified benign mammary dysplasia of right breast; Z17.0 Estrogen receptor positive status [ER+]; Z92.3 Personal history of irradiation; Z79.810 Long term (current) use of selective estrogen receptor modulators (SERMs) | CPT/HCPCS: 99212 ==

== ENCOUNTER 2022-08-05 14:12 | Outpatient (REF) | payer OTHER, SELFPAY ==
--- NOTE | ~2022-08-05 | US_ITS ---
EXAMINATION: US RETROPERITONEAL LIMITED (RENAL ONLY) CLINICAL INFORMATION: Calculus of kidney. COMPARISON: Renal ultrasound 07/31/2021 and 03/12/2021. CT abdomen and pelvis 05/06/2018. TECHNIQUE: Real-time imaging of the kidneys. FINDINGS: RIGHT KIDNEY: 9.9 x 5.3 x 4.7 cm (SAG x AP x TRV). The kidney is normal in size, contour, and echogenicity. Renal cortical thickness is normal. No renal calculi or hydronephrosis. There is a newly visualized partially exophytic hypoechoic lesion in the mid to upper pole measuring 1.5 cm. Bright superficial and deep jackson suggest a cyst however there is apparent internal vascularity. LEFT KIDNEY: 11.0 x 4.8 x 3.7 cm (SAG x AP x TRV). The kidney is normal in size, contour, and echogenicity. Renal cortical thickness is normal. No calculi or focal parenchymal lesions. No hydronephrosis. US/US renal BI IMPRESSION: New 1.5 cm indeterminate hypoechoic lesion in the mid to upper pole which may represent a complex cyst or solid mass. Recommend further evaluation with CT or MR abdomen without and with contrast renal mass protocol. No nephrolithiasis or hydronephrosis.
== END 2022-08-05 14:13 | disposition home or self-care (01) ==
LOC: HO.US 14:12
PROVIDERS: PCP Internal Medicine; Visit Provider Nurse Practitioner Family
DX: N20.0 Calculus of kidney (principal)
CPT/HCPCS: 76775

== ENCOUNTER → 2022-08-26 11:14 | Outpatient (BNVA) | payer OTHER, SELFPAY | PROVIDERS: PCP Internal Medicine; Visit Provider Nurse Practitioner Family | DX: N28.1 Cyst of kidney, acquired (principal) | CPT/HCPCS: 99212 ==

== ENCOUNTER 2022-09-26 18:31 | Emergency (ER) | payer OTHER, SELFPAY ==
--- NOTE | ~2022-09-26 | CT_ITS ---
EXAMINATION: CT ABDOMEN AND PELVIS WITH CONTRAST CLINICAL INFORMATION: Left lower quadrant pain COMPARISON: None available. TECHNIQUE: Multidetector volumetric images were obtained from the superior aspect of the liver through the pubic symphysis following administration 85 mL of Omnipaque 350 intravenous contrast. Sagittal and coronal reformatted images were obtained on the technologist's workstation. Oral contrast: No This CT examination was performed using dose optimization techniques as appropriate, variously including the following: *Automated exposure control *Adjustment of mA and/or kV according to patient size (this includes techniques or standardized protocols for targeted exams where dose is matched to indication/reason for exam; i.e. extremities or head) *Use of iterative reconstruction technique DLP: 651 mGy-cm FINDINGS: Limited detailed evaluation some regions due to motion artifact. LUNG BASES: The visualized lung bases are unremarkable. LIVER, GALLBLADDER, AND BILIARY TREE: The liver is normal in size, shape, and attenuation. No focal hepatic lesion or biliary ductal dilatation is present. The gallbladder is unremarkable with no evidence of radiopaque gallstones, gallbladder wall thickening, or obvious pericholecystic inflammatory changes. PANCREAS: Unremarkable. SPLEEN: Unremarkable. ADRENAL GLANDS: Unremarkable. KIDNEYS AND URETERS: Bilateral nephrograms are symmetric. No hydronephrosis or obstructing calculus identified. Few tiny left lower pole renal calculi noted along with cortical thinning/scarring. BLADDER: Unremarkable. GASTROINTESTINAL TRACT: No evidence of bowel obstruction or significant wall thickening. No free fluid or free air is seen. ABDOMINAL WALL: No significant hernia is appreciated. LYMPH NODES: Normal. VASCULAR: Unremarkable. PELVIC VISCERA: Unremarkable. OSSEOUS STRUCTURES: Unremarkable. CT/CT abdomen pelvis w IV con IMPRESSION: No acute findings identified in the abdomen/pelvis.
--- NOTE | 2022-09-26 18:36 | ED.GENADULT ---
HPI - General Adult General Chief complaint: Abdominal Pain Stated complaint: left pain in stomach Time Seen by Provider: 09/26/22 19:36 Source: patient and finisher screwdown Mode of arrival: ambulatory Limitations: language barrier History of Present Illness HPI narrative: Patient is a 47 year old assigned female at with a history of breast cancer and kidney stones presenting to the emergency department today with LLQ abdominal pain. Patient states that since yesterday she has had left lower quadrant abdominal pain. Patient denies any dizziness, lightheadedness, nausea, vomiting, fever, chills, blurry vision, double vision, loss of vision, chest pain, difficulty breathing, shortness of breath, back pain, night sweats, pain with urination, increased urinary frequency, increased urinary urgency, blood in her urine or stool, syncope or a near syncopal episode, recent trauma or falls, bowel incontinence, bladder incontinence, bowel retention, bladder retention, or any other complaints at this time. Onset (ago): day(s) (1) Location: abdomen and right Radiation: non-radiation Severity: mild Severity scale (1-10): 3 Quality: aching and dull Pain Consistency: constant Relieving factors: none Exacerbating factors: none Associated symptoms: denies other symptoms Treatments prior to arrival: none Related Data Home Medications Medication Instructions Recorded Confirmed tamoxifen 20 mg tablet 20 mg PO DAILY 04/23/20 07/28/22 acetaminophen 500 mg tablet 500 mg PO Q6H PRN Pain 04/23/21 07/28/22 Allergies Allergy/AdvReac Type Severity Reaction Status Date / Time No Known Allergies Allergy Verified 08/26/22 12:05 [No Known Allergies*] Review of Systems Constitutional: Constitutional: Reports no additional constitutional complaints, Denies chills, Denies fever(s) and Denies night sweats Eyes: Eyes: Reports no additional eye complaints, Denies blurry vision, Denies change in vision, Denies diplopia, Denies eye discharge, Denies loss of vision and Denies eye pain ENT: Denies dizziness Cardiovascular: Cardiovascular: Reports no additional cardiovascular complaints, Denies chest pain, Denies lightheadedness, Denies Loss of Consciousness and Denies dyspnea Respiratory: Respiratory: Reports no additional respiratory complaints and Denies dyspnea Gastrointestinal: Gastrointestinal: Reports no additional gastrointestinal complaints, Reports abdominal pain, Denies melena, Denies hematochezia, Denies change in bowel habits and Denies change in stool character Genitourinary: Genitourinary: Denies hematuria, Denies urinary frequency, Denies dysuria, Denies urinary incontinence, Denies urinary hesitancy and Denies urinary urgency Musculoskeletal: Musculoskeletal: Reports no additional musculoskeletal complaints, Denies numbness and Denies tingling Neurologic: Denies dizziness, Denies loss of vision, Denies numbness and Denies tingling Psychiatric: Psychiatric: Reports no additional psychiatric complaints Endocrine: Endocrine: Reports no additional endocrine complaints Hematologic/Lymphatic: Hematologic/Lymphatic: Reports no additional hematologic/lymphatic complaints Allergic/Immunologic: Allergic/Immunologic: Reports no additional allergic/immunologic complaints [facility] Past Medical History Attestation statement: The following information was validated with the patient. Source: old records reviewed and nursing notes reviewed Medical History Breast CA Cellulitis Cognitive deficits Congenital defect Migraine headache Neurofibromatosis Periorbital cellulitis of right eye Physical exam Recurrent UTI Renal calculi Surgical History History of bilateral breast biopsy (06/27/15) History of excision of lesion History of excision of mass (09/2017) History of left breast biopsy (03/01/19) History of lithotripsy (03/2018) History of local excision of skin lesion (08/17/17) History of lumpectomy of left breast (03/23/19) History of right breast biopsy (08/2015) History of tubal ligation Family History Family History Father History of diabetes mellitus CAD (coronary artery disease) Mother History of hypertension History of diabetes mellitus Social History Social History Household Members: Family Housing: Apartment Alcohol intake: never Patient Tobacco Use Status: Never used Tobacco e-Cigarette/Vaping Use: Never Used Second Hand Smoke Exposure: No Advance Directives: No Advance Directives Information Provided: No service: No Current occupational status: unemployed Cognitive needs: No Hearing needs: No Vision needs: Yes (Glasses) Physical Exam ED Vital Signs: Vital Signs - 24 hr 09/26/22 18:37 09/26/22 19:41 09/26/22 22:22 Temperature 98.6 F 97.7 F 98.1 F Pulse Rate 81 69 64 Respiratory Rate 16 18 15 Blood Pressure 167/56 H 142/88 H 109/59 L Pulse Oximetry 99 98 98 Oxygen Delivery Method Room Air Room Air Room Air 09/26/22 23:20 Temperature 98.2 F Pulse Rate 64 Respiratory Rate 16 Blood Pressure 128/70 Pulse Oximetry 98 Oxygen Delivery Method Room Air BMI result Body Mass Index 28.2 Const General: cooperative, no acute distress, alert and awake Nutritional Appearance: well nourished Orientation/consciousness: patient oriented x3 Limitations: no limitations HENMT Head: Yes normal to inspection and Yes atraumatic Ears: hearing grossly normal bilaterally and external ears normal General nose exam: Normal external nose present, no nasal discharge noted and no epistaxis Face and sinus: Yes normal facial exam, No abrasion and No laceration Mouth: Normal oral and palatal mucosa present, no drooling and no muffled voice Eyes General: appearance normal, both eyes and all related structures Periorbital: periorbital findings normal Eyelids: Yes eyelids normal Conjunctivae: conjunctivae normal Pupils: Equal, round and reactive pupils present EOM: EOMs intact bilaterally Neck Neck: Yes normal visual inspection, Yes full ROM and Yes no lymphadenopathy Chest Chest palpation & inspection: normal inspection of the chest Resp Effort & Inspection: normal respiratory effort and able to speak in complete sentences GI Inspection: Yes normal to inspection Palpation (GI): Soft to palpation, not firm, nontender, no guarding and not rigid Neuro General: patient oriented x3 and moves all extremities Cranial nerves: Yes Equal, round and reactive pupils present Cognition (Neuro): normal cognition Motor exam (neuro): 5/5 motor strength present throughout Sensory Exam: Normal double simultaneous stimulation for sensation Coordination: [id number] test normal Extrem General: Yes normal to inspection, Yes full ROM and Yes capillary refill normal Psych Appearance: grossly normal Mental Status: mental status grossly normal Affect: normal affect Attitude: cooperative Thought process: Normal thought process present Thought content: Normal thought content present Insight: Good insight present (Psych) Course Course Course Narrative: This is an RME: Additional HPI, ROS, PE not included below will be deferred to primary provider. 47-year-old female presents with left lower quadrant pain x1 day, no history of diverticulitis. Reports associated fatigue, malaise. No fevers, chills, chest pain, shortness of breath, nausea, vomiting, headache, vision changes, dizziness and weakness Physical exam left lower quadrant tenderness to palpation Plan labs, urine, imaging Medications Administered Discontinued Medications Generic Name Dose Route Start Last Admin Trade Name James PRN Reason Stop Dose Admin Iohexol 100 ml 09/26/22 21:11 09/26/22 21:11 Iohexol 350 Mg/Ml 100 Ml Infus..Btl IV 09/26/22 21:12 85 ml ONCE ONE Administration Medical Decision Making Medical Decision Making [facility] Narrative: Patient is a 47 year old assigned female at with a history of breast cancer and kidney stones presenting to the emergency department today with LLQ abdominal pain. Patient's physical exam was unremarkable. Patient's blood work was unremarkable. Patient's urine showed no acute process. Patient's abdomen/pelvis CT showed no acute process. I explained my physical exam findings as well as all test results to the patient. I answered all questions asked by the patient. I stressed the importance of the patient taking her medication as prescribed. I stressed the importance of the patient following up with her primary care provider. I stressed the importance of the patient returning to the emergency department immediately if her symptoms were to worsen or if she were to develop any dizziness, shortness of breath, difficulty breathing, chest pain, blurry vision, loss of vision, nausea, vomiting, abdominal pain, fever, chills, back pain, or any other complaints. Patient verbalized agreement and understanding with this treatment plan and discharge. Differential Diagnosis Differential Diagnoses: The differential diagnosis associated with the presentation includes abdominal pain, flank pain Admission/Observation Consideration of admission/observation: Escalation of care including admission/observation considered Patient would have been admitted to the hospital had her work up had any findings where hospital admission was appropriate. Lab Data [facility] Lab Attestation statement: I reviewed the patient's lab results. My interpretation of these studies and their corresponding values is that they are grossly normal. 09/26/22 18:55 09/26/22 18:55 Labs: Lab Results 09/26/22 09/26/22 09/26/22 Range/Units 18:55 18:55 18:59 WBC 6.1 (4.8-10.8) X10*3/uL RBC 3.89 L (4.20-5.50) X10*6/uL Hgb 11.8 L (12.0-16.0) g/dl Hct 34.5 L (37.0-47.0) % MCV 88.7 (80.0-98.0) fL MCH 30.3 (27.0-33.0) pg MCHC 34.2 (31.0-35.0) g/dl RDW 12.9 (11.0-16.0) % Plt Count 266 (160-400) X10*3/uL MPV 10.8 (9.4-12.3) fL Immature Gran % (Auto) 0.3 (0.0-0.4) % Neut % (Auto) 68.2 (45-73) % Lymph % (Auto) 25.6 (20-40) % Norman % (Auto) 4.6 (2-11) % Eos % (Auto) 0.8 (0-4) % Baso % (Auto) 0.5 (0-2) % Lymph # (Auto) 1.6 (1.2-4.9) X10*3/uL Norman # (Auto) 0.3 (0.1-1.2) X10*3/uL Eos # (Auto) 0.1 (0.0-0.4) X10*3/uL Baso # (Auto) 0.0 (0.0-0.2) X10*3/uL Abs Immat Gran (auto) 0.02 (0.00-0.03) X10*3/uL Absolute Neuts (auto) 4.2 (2.0-8.3) x10*3/uL Absolute Nucleated RBC 0.000 (0.0-0.012) X10*3/uL Nucleated RBC % (auto) 0.0 (0.0-0.2) /100WBC Sodium 140 (135-145) mmol/L Potassium 3.5 (3.3-5.1) mmol/L Chloride 107 (96-108) mmol/L Carbon Dioxide 24 (22-29) mmol/L Anion Gap 13 (12-20) BUN 12 (9-16) mg/dL Creatinine 0.76 (0.5-1.4) mg/dL Estim Creat Clear Calc 87.3 Estimated GFR > 60 Random Glucose 112 (60-115) mg/dL Calcium 9.7 D (8.4-10.2) mg/dL Magnesium 1.8 (1.6-2.6) mg/dL Total Bilirubin 0.8 (0.0-1.0) mg/dL AST 18 (5-31) U/L ALT 18 (0-31) U/L Alkaline Phosphatase 72 (39-117) U/L Total Protein 7.3 (6.5-8.0) g/dL Albumin 4.0 (3.5-5.0) g/dL Lipase 16 (8-78) U/L Urine Color Yellow Urine Appearance Clear Urine pH 5.5 (5.0-9.0) Ur Specific [place] 1.010 (1.005-1.025) Urine Protein Negative (Neg-Trace) mg/dL Urine Glucose (UA) Negative (Negative) mg/dL Urine Ketones Negative (Negative) mg/dL Urine Blood Negative (Negative) Urine Nitrite Negative (Negative) Ur Leukocyte Esterase Negative (Negative) Independent Interpretation I performed an independent interpretation of an: CT Scan Interpretation: My interpretation is in agreement with the radiologist's impression of this imaging study. EXAMINATION: CT ABDOMEN AND PELVIS WITH CONTRAST? CLINICAL INFORMATION: Left lower quadrant pain? COMPARISON: None available. TECHNIQUE: Multidetector volumetric images were obtained from the superior aspect of the liver through the pubic symphysis following administration 85 mL of Omnipaque 350 intravenous contrast. Sagittal and coronal reformatted images were obtained on the technologist's workstation.? Oral contrast: No This CT examination was performed using dose optimization techniques as appropriate, variously including the following: *Automated exposure control *Adjustment of mA and/or kV according to patient size (this includes techniques or standardized protocols for targeted exams where dose is matched to indication/reason for exam; i.e. extremities or head) *Use of iterative reconstruction technique DLP: 651 mGy-cm FINDINGS: Limited detailed evaluation some regions due to motion artifact. LUNG BASES: The visualized lung bases are unremarkable.? LIVER, GALLBLADDER, AND BILIARY TREE: The liver is normal in size, shape, and attenuation. No focal hepatic lesion or biliary ductal dilatation is present. The gallbladder is unremarkable with no evidence of radiopaque gallstones, gallbladder wall thickening, or obvious pericholecystic inflammatory changes. PANCREAS: Unremarkable.? SPLEEN: Unremarkable.? ADRENAL GLANDS: Unremarkable.? KIDNEYS AND URETERS: Bilateral nephrograms are symmetric. No hydronephrosis or obstructing calculus identified. Few tiny left lower pole renal calculi noted along with cortical thinning/scarring. BLADDER: Unremarkable.? GASTROINTESTINAL TRACT: No evidence of bowel obstruction or significant wall thickening. No free fluid or free air is seen.? ABDOMINAL WALL: No significant hernia is appreciated.? LYMPH NODES: Normal. VASCULAR: Unremarkable. PELVIC VISCERA: Unremarkable.? OSSEOUS STRUCTURES: Unremarkable.? CT/CT abdomen pelvis w IV con IMPRESSION: No acute findings identified in the abdomen/pelvis. ? Dictated By: Brenton Rawls MD Signed By: Electronically signed by Brenton Rawls MD 09/26/22 1584 Chronic Conditions Patient?s care impacted by: Other (breast cancer, kidney stones) Discharge Plan Discharge Clinical Impression: Acute flank pain Patient Disposition: Home, Self-Care Instructions: Flank Pain (ED) Additional Instructions: Follow up with your primary care provider. Return to the emergency department immediately if your symptoms worsen or if you develop any dizziness, shortness of breath, difficulty breathing, chest pain, blurry vision, loss of vision, nausea, vomiting, abdominal pain, fever, chills, back pain, or any other complaints. Hussain un seguimiento con rivera proveedor de atenci?n primaria. Regrese al departamento de emergencias de inmediato si chris s?ntomas empeoran o si presenta mareos, falta de aire, dificultad para respirar, dolor de pecho, visi?n borrosa, p?rdida de la visi?n, n?useas, v?mitos, dolor abdominal, fiebre, escalofr?os, dolor de espalda o cualquier otras quejas. Prescriptions: No Action tamoxifen 20 mg Tablet 20 mg PO DAILY acetaminophen [Tylenol Ex Str Rapid Release] 500 mg Tablet 500 mg PO Q6H PRN (Reason: Pain) Referrals: Rhiannon Morrison MD [Primary Care Provider] - Interventions: ED Discharge Assessment Last Done: 09/26/22 23:34 Discharge Date/Time: 09/26/22 23:38 Print Language: Occitan
[2022-09-26 18:37] VITALS: BP 167/56; PULSE 81; RESP 16; TEMP 37; O2SAT 99; BMI 28.2
[2022-09-26 19:03] LABS: MANUAL DIFF FLAG NO
[2022-09-26 19:04] LABS: Basophils Percent Auto 0.5 % (0-2); Eosinophils Absolute Auto 0.1 X10*3/uL (0.0-0.4); Eosinophils Percent Auto 0.8 % (0-4); Hematocrit 34.5 % (37.0-47.0); Hemoglobin 11.8 g/dl (12.0-16.0); Imm Gran Abs Auto 0.02 X10*3/uL (0.00-0.03); Imm Gran Pct Auto 0.3 % (0.0-0.4); Lymphocytes Absolute Auto 1.6 X10*3/uL (1.2-4.9); Lymphocytes Percent Auto 25.6 % (20-40); Mean Corpuscular HGB Conc 34.2 g/dl (31.0-35.0); Mean Corpuscular Hemoglobin 30.3 pg (27.0-33.0); Mean Corpuscular Volume 88.7 fL (80.0-98.0); Mean Platelet Volume 10.8 fL (9.4-12.3); Monocytes Absolute Auto 0.3 X10*3/uL (0.1-1.2); Monocytes Percent Auto 4.6 % (2-11); Neutrophils Absolute Auto 4.2 x10*3/uL (2.0-8.3); Neutrophils Percent Auto 68.2 % (45-73); Platelet Count 266 X10*3/uL (160-400); Red Blood Count 3.89 X10*6/uL (4.20-5.50); Red Cell Distribution Width 12.9 % (11.0-16.0); White Blood Count 6.1 X10*3/uL (4.8-10.8)
[2022-09-26 19:08] LABS: Appearance Urine Clear; Color Urine Yellow; Glucose Urine UA Negative (Negative); Leukocyte Esterase Urine Negative (Negative); Nitrite Urine Negative (Negative); PH 5.5 (5.0-9.0); Urine Blood Negative (Negative); Urine Ketones Negative (Negative); Urine Protein Negative (Neg-Trace)
[2022-09-26 19:19] LABS: Alanine Aminotransferase 18 U/L (0-31); Alkaline Phosphatase 72 U/L (39-117); Anion Gap 13 (12-20); Aspartate Amino Transferase 18 U/L (5-31); Bilirubin Total 0.8 mg/dL (0.0-1.0); Blood Urea Nitrogen 12 mg/dL (9-16); Calcium 9.7 mg/dL (8.4-10.2); Carbon Dioxide 24 mmol/L (22-29); Chloride 107 mmol/L (96-108); Creatinine Clr Calc Pharmacy 87.3; Estimated Glomerular Filt Rate > 60; Glucose Random 112 mg/dL (60-115); Lipase 16 U/L (8-78); Magnesium 1.8 mg/dL (1.6-2.6); Potassium 3.5 mmol/L (3.3-5.1); Sodium 140 mmol/L (135-145); Total Protein 7.3 g/dL (6.5-8.0)
[2022-09-26 19:41] VITALS: BP 142/88; PULSE 69; RESP 18; TEMP 36.5; O2SAT 98
[2022-09-26] MEDS: iohexoL 350 MG/ML 100 ML INFUS..BTL IV (21:11)
[2022-09-26 22:22] VITALS: BP 109/59; PULSE 64; RESP 15; TEMP 36.7; O2SAT 98
[2022-09-26 23:20] VITALS: BP 128/70; PULSE 64; RESP 16; TEMP 36.8; O2SAT 98
== END 2022-09-26 23:38 | disposition home or self-care (01) ==
PROVIDERS: Physician Assistant; Emergency Provider Emergency Medicine; PCP Internal Medicine
DX: R10.9 Unspecified abdominal pain (principal); Z87.442 Personal history of urinary calculi; Z85.3 Personal history of malignant neoplasm of breast; Z87.440 Personal history of urinary (tract) infections
CPT/HCPCS: 36415; 74177; 80053; 81003; 83690; 83735; 85025; 99283; 99284; Q9967

== ENCOUNTER 2022-10-01 09:51 | Outpatient (REF) | payer OTHER, SELFPAY ==
[2022-10-01 12:30] LABS: Blood Urea Nitrogen 10 mg/dL (9-16); Estimated Glomerular Filt Rate > 60
== END 2022-10-01 09:52 | disposition home or self-care (01) ==
LOC: HO.LAB 09:51
PROVIDERS: Visit Provider Nurse Practitioner Family
DX: R39.15 Urgency of urination (principal)
CPT/HCPCS: 36415; 82565; 84520

== ENCOUNTER 2022-10-02 09:13 | Outpatient (REF) | payer OTHER, SELFPAY ==
--- NOTE | ~2022-10-02 | CT_ITS ---
EXAMINATION: CT ABDOMEN AND PELVIS WITHOUT AND WITH CONTRAST CLINICAL INFORMATION: Cyst of kidney. COMPARISON: CT abdomen/pelvis with contrast 09/26/2022 less than one week ago. Renal ultrasound 08/05/2022: New 1.5 cm indeterminate hypoechoic lesion in the mid to upper pole which may represent a complex cyst or solid mass. Recommend further evaluation with CT or MR abdomen without and with contrast renal mass protocol. TECHNIQUE: Multidetector volumetric imaging was performed of the abdomen and pelvis before and after the IV administration of 85 mL of Omnipaque 350 intravenous contrast. Sagittal and coronal reformatted images were obtained on the technologist's workstation. This CT examination was performed using dose optimization techniques as appropriate, variously including the following: *Automated exposure control *Adjustment of mA and/or kV according to patient size (this includes techniques or standardized protocols for targeted exams where dose is matched to indication/reason for exam; i.e. extremities or head) *Use of iterative reconstruction technique DLP: 1163.22 mGy-cm FINDINGS: LUNG BASES: The visualized lung bases are unremarkable. LIVER, GALLBLADDER, AND BILIARY TREE: The liver is normal in size, shape, and attenuation. No focal hepatic lesion or biliary ductal dilatation is present. The gallbladder is contracted but otherwise unremarkable with no evidence of radiopaque gallstones, gallbladder wall thickening, or obvious pericholecystic inflammatory changes. PANCREAS: Unremarkable. SPLEEN: Unremarkable. ADRENAL GLANDS: Unremarkable. KIDNEYS AND URETERS: The kidneys are normal in size, shape, and attenuation. Similar to the CT scan performed just under one week ago, no right-sided renal mass is seen to correspond with the findings seen on the 08/05/2022 ultrasound exam. Again noted is a duplex collecting system on the left with 2 ureters seen at least down to the level of the mid pelvis. Ureteral insertions in the bladder are not well seen. There is some generalized atrophy and scarring of the lower pole moiety on the left especially at the lower pole where there is near complete loss of cortex and a 3 mm nonobstructing calculus. There is a single collecting system on the right. No hydronephrosis, hydroureter, or additional calculi seen. No perinephric stranding. BLADDER: The bladder is distended up to the level of the umbilicus. GASTROINTESTINAL TRACT: The small and large bowel are unremarkable. The appendix is not seen identified but there is no evidence of appendicitis. ABDOMINAL WALL: No significant hernia is appreciated. Small periumbilical hernia seen containing only fat. LYMPH NODES: Normal. VASCULAR: Unremarkable. PELVIC VISCERA: The uterus and adnexa are unremarkable. OSSEOUS STRUCTURES: Unremarkable. Lytic area in T11 with characteristics of a benign hemangioma unchanged from prior. CT/CT abdomen pelvis wo/w IV con IMPRESSION: 1. No renal mass is seen to correspond with the findings seen on the 08/05/2022 ultrasound. Would recommend a repeat targeted renal ultrasound to see if the abnormality seen on the prior renal ultrasound remains present. However, based upon the CT scan, a concerning finding is not present. 2. 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 3. Other incidental findings as described above. Fleischner guidelines were followed.
[2022-10-02] MEDS: iohexoL 350 MG/ML 100 ML INFUS..BTL IV (09:54)
== END 2022-10-02 09:14 | disposition home or self-care (01) ==
LOC: HO.CT 09:13
PROVIDERS: PCP Internal Medicine; Visit Provider Nurse Practitioner Family
DX: N28.1 Cyst of kidney, acquired (principal)
CPT/HCPCS: 74178; Q9967

== ENCOUNTER 2022-10-19 13:18 | Outpatient (AMB) | payer OTHER, SELFPAY ==
--- NOTE | 2022-10-19 13:21 | MHC.OFFVIS ---
Intake Intake Visit Reasons: Cyst of kidney-follow up/CT(set) Intake Note: Patient is present for follow up cyst of kidney/CT scan results (imaging 10/02) Urology Medications: none Blood Thinner: none Job Service Specialist Required: Yes Job Service Specialist Name: Danika Accompanied by: Self / Same As Patient Allergies No Known Allergies [No Known Allergies*] Allergy (Verified 10/19/22 22:55) HPI HPI Comments History of Present Illness Details Xiomy is a pleasant 47-year-old Kosovan-speaking female patient of Dr. Curtis Bloom who was accompanied by her mom at today's visit. She presents to the office today for follow-up. Of note, patient was seen approximately 2 months ago at which time a CT renal mass protocol was ordered for recent ultrasound imaging noting new 1.5 cm indeterminate hypoechoic lesion in the mid to upper pole which may represent a complex cyst or solid mass. Recent CT renal mass protocol imaging results reviewed with the patient and her mom today. No renal masses seen to correspond with findings on previous renal ultrasound. Would recommend a repeat targeted renal ultrasound to see if the abnormality seen on the prior renal ultrasound remains present. However, based on CT scan a concerning finding is not present. 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 Patient discusses having had recent follow-up with PCP due to on going left-sided abominal pain for approximately 1 month. She denies changes to her bowel habits, fever, chills, and reports to be eating well. She otherwise denies urinary urgency, urinary frequency, incontinence, nocturia, hematuria, dysuria, foul smelling urine, changes to urinary stream, flank pain, fever, and or chills. She is happy with her current voiding parameters. In office urinalysis results reviewed with the patient and her mom today. 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 [facility] Medical History Breast CA Cellulitis Cognitive deficits Congenital defect Migraine headache Neurofibromatosis Periorbital cellulitis of right eye Physical exam Recurrent UTI Renal calculi Surgical History History of bilateral breast biopsy (06/27/15) History of excision of lesion History of excision of mass (09/2017) History of left breast biopsy (03/01/19) History of lithotripsy (03/2018) History of local excision of skin lesion (08/17/17) History of lumpectomy of left breast (03/23/19) History of right breast biopsy (08/2015) History of tubal ligation Family History Father History of diabetes mellitus CAD (coronary artery disease) Mother History of hypertension History of diabetes mellitus Social History Household Members: Family Housing: Apartment Alcohol intake: never Patient Tobacco Use Status: Never used Tobacco e-Cigarette/Vaping Use: Never Used Second Hand Smoke Exposure: No service: No Current occupational status: unemployed Cognitive needs: No Hearing needs: No Vision needs: Yes (Glasses) Review of Systems Const All systems reviewed & are unremarkable except as noted in HPI and below Eyes Reports no additional complaints ENT Reports no additional complaints Card Reports no additional complaints Resp Reports no additional complaints GI Reports no additional complaints Reports as per HPI Musc Reports no additional complaints Neuro Reports no additional complaints Psych Reports no additional complaints Endo Reports no additional complaints Isaac/Lymph Reports as per HPI Aller/Immun Reports no additional complaints Physical Exam Const General: cooperative, healthy appearing, comfortable, no acute distress, well developed, alert and awake Orientation/consciousness: patient oriented x3 Limitations: no limitations HEENT Head: Yes normal to inspection, Yes normocephalic and Yes atraumatic Ears: hearing grossly normal bilaterally Eyes General: appearance normal, both eyes and all related structures Neck Neck: Yes normal visual inspection and Yes trachea midline Chest Chest palpation & inspection: normal inspection of the chest Resp Effort & Inspection: normal respiratory effort and able to speak in complete sentences Cardio Rate: regular rate GI Inspection: Yes normal to inspection General: Yes no CVA tenderness Back/Spine/Pelvis Back: no CVA tenderness Skin General skin exam: no rashes or lesions noted Neuro General: patient oriented x3 Extrem General: Yes normal to inspection Psych Appearance: grossly normal and well kempt Mental Status: mental status grossly normal Speech and movement: Normal speech and movement present and Clear speech present Affect: normal affect Attitude: cooperative Thought process: Normal thought process present Thought content: Normal thought content present Insight: Good insight present (Psych) Judgement: Good judgement present (Psych) Results AMB Urinalysis, Automated UA Leukoctes 0 Chandan/uL Last Edit by Shaun Frias on 10/19/22 13:39 UA Nitrite Negative Last Edit by [employer] on 10/19/22 13:39 UA Urobilinogen 0.2 mg/dL Last Edit by [employer] on 10/19/22 13:39 UA Protein 0 mg/dL Last Edit by [employer] on 10/19/22 13:39 UA pH 6.5 Last Edit by Whisper on 10/19/22 13:39 UA Blood 0 Gurinder/uL Last Edit by [employer] on 10/19/22 13:39 UA Specific [place] 1.015 Last Edit by Whisper on 10/19/22 13:39 UA Ketone Negative Last Edit by [employer] on 10/19/22 13:39 UA Bilirubin 0 mg/dL Last Edit by Whisper on 10/19/22 13:39 UA Glucose 0 mg/dL Last Edit by Whisper on 10/19/22 13:39 Results Reviewed Results Reviewed: Laboratory Last Values Urine pH (Auto) 6.5 10/19/22 13:23 Specific [place] (Auto) 1.015 10/19/22 13:23 Urine Protein (Auto) 0 mg/dL 10/19/22 13:23 Glucose (UA)(Auto) 0 mg/dL 10/19/22 13:23 Urine Ketones (Auto) Negative 10/19/22 13:23 Urine Blood (Auto) 0 Gurinder/uL 10/19/22 13:23 Urine Nitrite (Auto) Negative 10/19/22 13:23 Urine Bilirubin (Auto) 0 mg/dL 10/19/22 13:23 Urine Urobilinogen (Auto) 0.2 mg/dL 10/19/22 13:23 Leukocyte Esterase (Auto) 0 Chandan/uL 10/19/22 13:23 Date of Service: 10/02/22 EXAMINATION: CT ABDOMEN AND PELVIS WITHOUT AND WITH CONTRAST? FINDINGS: LUNG BASES: The visualized lung bases are unremarkable.? LIVER, GALLBLADDER, AND BILIARY TREE: The liver is normal in size, shape, and attenuation. No focal hepatic lesion or biliary ductal dilatation is present. The gallbladder is contracted but otherwise unremarkable with no evidence of radiopaque gallstones, gallbladder wall thickening, or obvious pericholecystic inflammatory changes.? PANCREAS: Unremarkable.? SPLEEN: Unremarkable.? ADRENAL GLANDS: Unremarkable.? KIDNEYS AND URETERS: The kidneys are normal in size, shape, and attenuation. Similar to the CT scan performed just under one week ago, no right-sided renal mass is seen to correspond with the findings seen on the 08/05/2022 ultrasound exam. Again noted is a duplex collecting system on the left with 2 ureters seen at least down to the level of the mid pelvis. Ureteral insertions in the bladder are not well seen. There is some generalized atrophy and scarring of the lower pole moiety on the left especially at the lower pole where there is near complete loss of cortex and a 3 mm nonobstructing calculus. There is a single collecting system on the right. No hydronephrosis, hydroureter, or additional calculi seen. No perinephric stranding.? BLADDER: The bladder is distended up to the level of the umbilicus.? GASTROINTESTINAL TRACT: The small and large bowel are unremarkable. The appendix is not seen identified but there is no evidence of appendicitis.? ABDOMINAL WALL: No significant hernia is appreciated. Small periumbilical hernia seen containing only fat. LYMPH NODES: Normal. VASCULAR: Unremarkable. PELVIC VISCERA: The uterus and adnexa are unremarkable.? OSSEOUS STRUCTURES: Unremarkable. Lytic area in T11 with characteristics of a benign hemangioma unchanged from prior. CT/CT abdomen pelvis wo/w IV con IMPRESSION: 1.? No renal mass is seen to correspond with the findings seen on the 08/05/2022 ultrasound. Would recommend a repeat targeted renal ultrasound to see if the abnormality seen on the prior renal ultrasound remains present. However, based upon the CT scan, a concerning finding is not present. ? 2.? 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 ? 3.? Other incidental findings as described above. Assessment & Plan Assessment & Plan (1) Complex renal cyst: Code(s): N28.1 - Cyst of kidney, acquired (2) Renal calculi: Code(s): N20.0 - Calculus of kidney Plan In office urinalysis results reviewed with the patient today. Recent CT results reviewed with the patient and her mother today. Will obtain right renal to targeted ultrasound for further assessment evaluation. When asked patient reports be happy with current voiding parameters. She continues with left-sided upper/mid abdominal pain; patient denies nausea, vomiting, and or changes to bowel habits; discusses symptoms arise in pain persist to seek medical treatment. Patient denies any urinary issues or concerns at this time No CVA tenderness noted bilaterally Discussed adding 1 oz of lemon juice to water daily. Discussed, educated, and stressed the importance of drinking plenty of water daily. Start vitamin B6 as discussed and prescribed. Follow-up in 1 month with imaging to be completed prior; or sooner with any issues, concerns, and or questions. Orders: Orders US renal RT Today N20.0 - Calculus of kidney, N28.1 - Cyst of kidney, acquired AMB Urinalysis Automated Today Z13.9 - Encounter for screening, unspecified Medications: New pyridoxine (vitamin B6) 100 mg PO DAILY 90 days 90 tabs 1RF Patient Instructions: The patient had an opportunity to ask questions regarding the treatment plan. All questions were answered. Physical exam, labs, and imaging were discussed and reviewed in detail. As well as risks, benefits, and discussion of treatment choices. No major barriers to understanding were identified. The patient expressed understanding and agreement with the above treatment plan. The patient was made aware they should contact our office by phone for worsening of their current condition, the appearance of new symptoms, or with any questions or concerns. Compliance is encouraged with any medications and follow up testing that is ordered. It is a privilege to be allowed the opportunity to participate in? your urological care.? Again, if you have any questions or concerns If you have any questions or concerns please do not hesitate to contact me. The office is [phone]. This note is constructed using voice recognition software. While every effort has been made to ensure accuracy cyber forensic specialist errors may have been included. Yours sincerely, MARK Hurtado Coding Level of Care Code Est Pt Level 4 (69790) Diagnoses Complex renal cyst N28.1 Renal calculi N20.0
== END 2022-10-19 14:07 | disposition home or self-care (01) ==
PROVIDERS: PCP Internal Medicine; Visit Provider Nurse Practitioner Family
DX: N28.1 Cyst of kidney, acquired (principal); N20.0 Calculus of kidney
CPT/HCPCS: 99214

== ENCOUNTER → 2022-10-19 13:18 | Outpatient (BNVA) | payer OTHER, SELFPAY | PROVIDERS: PCP Internal Medicine; Visit Provider Nurse Practitioner Family | DX: N28.1 Cyst of kidney, acquired (principal); N20.0 Calculus of kidney | CPT/HCPCS: 99212 ==

== ENCOUNTER 2022-10-30 09:03 | Outpatient (REF) | payer OTHER, SELFPAY ==
--- NOTE | ~2022-10-30 | US_ITS ---
EXAMINATION: US RETROPERITONEAL LIMITED (RENAL ONLY) CLINICAL INFORMATION: Cyst of kidney, acquired. COMPARISON: CT abdomen and pelvis 10/02/2022. Renal ultrasound 08/05/2022 and 07/31/2021. X-ray KUB 06/01/2018 and 03/16/2018. TECHNIQUE: Real-time imaging of the right kidney. FINDINGS: RIGHT KIDNEY: 11.6 x 4.6 x 5.0 cm (SAG x AP x TRV). The kidney is normal in size, contour, and echogenicity. Renal cortical thickness is normal. No calculi or focal parenchymal lesions. No hydronephrosis. Previously identified hypoechoic area in the upper to midpole that was new on August 2022 renal ultrasound is not seen. US/US renal RT IMPRESSION: Normal right kidney.
== END 2022-10-30 09:04 | disposition home or self-care (01) ==
LOC: HO.US 09:03
PROVIDERS: PCP Internal Medicine; Visit Provider Nurse Practitioner Family
DX: N28.1 Cyst of kidney, acquired (principal); N20.0 Calculus of kidney
CPT/HCPCS: 76775

== ENCOUNTER 2022-12-01 11:32 | Outpatient (AMB) | payer OTHER, SELFPAY ==
--- NOTE | 2022-12-01 11:38 | MHC.OFFVIS ---
Intake Intake Visit Reasons: follow up/ultrasound (set) Intake Note: Patient is present for follow up cyst of kidney/ultrasound results (imaging 10/30/22) Urology Medications: Vitamin B6 Blood Thinner: none Construction Skills Teacher Required: Yes Construction Skills Teacher Name: Adelina Accompanied by: Unknown Allergies No Known Allergies [No Known Allergies*] Allergy (Verified 12/01/22 12:00) HPI HPI Comments History of Present Illness Details Xiomy is a pleasant 47-year-old Kinyarwanda-speaking female patient of Dr. Curtis Bloom who was accompanied by her mom at today's visit. She has a past medical history of breast cancer, cellulitis, cognitive deficits, migraines, neurofibromatosis, in a recurrent urinary tract infections, and nephrolithiasis. She presents to the office today for follow-up. Of note, patient was seen approximately 6 weeks ago at which time a right renal targeted ultrasound was ordered for further assessment evaluation. These results were reviewed with the patient and her mom today. Right kidney with no calculi, lesions, or hydronephrosis noted. Previously identified hypoechoic area in the upper mid pole that was new on August 2022 renal ultrasound is not seen. Patient reports previous left-sided abdominal pain she had been experiencing has since subsided. In in office urinalysis results reviewed with the patient today. When asked patient denies urinary urgency, urinary frequency, incontinence, nocturia, hematuria, dysuria, foul smelling urine, changes to urinary stream, flank pain, fever, and or chills. She is happy with her current voiding parameters. 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 [facility] Medical History Breast CA Cellulitis Cognitive deficits Congenital defect Migraine headache Neurofibromatosis Periorbital cellulitis of right eye Physical exam Recurrent UTI Renal calculi Surgical History History of bilateral breast biopsy (06/27/15) History of excision of lesion History of excision of mass (09/2017) History of left breast biopsy (03/01/19) History of lithotripsy (03/2018) History of local excision of skin lesion (08/17/17) History of lumpectomy of left breast (03/23/19) History of right breast biopsy (08/2015) History of tubal ligation Family History Father History of diabetes mellitus CAD (coronary artery disease) Mother History of hypertension History of diabetes mellitus Social History Household Members: Family Housing: Apartment Alcohol intake: never Patient Tobacco Use Status: Never used Tobacco e-Cigarette/Vaping Use: Never Used Second Hand Smoke Exposure: No service: No Current occupational status: unemployed Cognitive needs: No Hearing needs: No Vision needs: Yes (Glasses) Review of Systems Const All systems reviewed & are unremarkable except as noted in HPI and below Eyes Reports no additional complaints ENT Reports no additional complaints Card Reports no additional complaints Resp Reports no additional complaints GI Reports no additional complaints Reports as per HPI Musc Reports no additional complaints Neuro Reports no additional complaints Psych Reports no additional complaints Endo Reports no additional complaints Isaac/Lymph Reports as per HPI Aller/Immun Reports no additional complaints Physical Exam Const General: cooperative, healthy appearing, comfortable, no acute distress, well developed, alert and awake Orientation/consciousness: patient oriented x3 Limitations: no limitations HEENT Head: Yes normal to inspection, Yes normocephalic and Yes atraumatic Ears: hearing grossly normal bilaterally Eyes General: appearance normal, both eyes and all related structures Neck Neck: Yes normal visual inspection and Yes trachea midline Chest Chest palpation & inspection: normal inspection of the chest Resp Effort & Inspection: normal respiratory effort and able to speak in complete sentences Cardio Rate: regular rate GI Inspection: Yes normal to inspection General: Yes no CVA tenderness Back/Spine/Pelvis Back: no CVA tenderness Skin General skin exam: no rashes or lesions noted Neuro General: patient oriented x3 Extrem General: Yes normal to inspection Psych Appearance: grossly normal and well kempt Mental Status: mental status grossly normal Speech and movement: Normal speech and movement present and Clear speech present Affect: normal affect Attitude: cooperative Thought process: Normal thought process present Thought content: Normal thought content present Insight: Good insight present (Psych) Judgement: Good judgement present (Psych) Results AMB Urinalysis, Automated UA Leukoctes 0 Chandan/uL Last Edit by Shaun Frias on 12/01/22 11:53 UA Nitrite Last Edit by Shaun Frias on 12/01/22 11:53 UA Urobilinogen 0.2 mg/dL Last Edit by Shaun Frais on 12/01/22 11:53 UA Protein 0 mg/dL Last Edit by Shaun Frias on 12/01/22 11:53 UA pH 7.5 Last Edit by Shaun Frias on 12/01/22 11:53 UA Blood 0 Gurinder/uL Last Edit by Shaun Frias on 12/01/22 11:53 UA Specific [place] 1.010 Last Edit by Shaun Frias on 12/01/22 11:53 UA Ketone Negative Last Edit by Shaun Frias on 12/01/22 11:53 UA Bilirubin 0 mg/dL Last Edit by Shaun Frias on 12/01/22 11:53 UA Glucose 0 mg/dL Last Edit by Shaun Frias on 12/01/22 11:53 Results Reviewed Results Reviewed: Laboratory Last Values Urine pH (Auto) 7.5 12/01/22 11:42 Specific [place] (Auto) 1.010 12/01/22 11:42 Urine Protein (Auto) 0 mg/dL 12/01/22 11:42 Glucose (UA)(Auto) 0 mg/dL 12/01/22 11:42 Urine Ketones (Auto) Negative 12/01/22 11:42 Urine Blood (Auto) 0 Gurinder/uL 12/01/22 11:42 Urine Bilirubin (Auto) 0 mg/dL 12/01/22 11:42 Urine Urobilinogen (Auto) 0.2 mg/dL 12/01/22 11:42 Leukocyte Esterase (Auto) 0 Chandan/uL 12/01/22 11:42 Date of Service: 10/30/22 EXAMINATION: US RETROPERITONEAL LIMITED (RENAL ONLY) FINDINGS: RIGHT KIDNEY: 11.6 x 4.6 x 5.0 cm (SAG x AP x TRV). The kidney is normal in size, contour, and echogenicity. Renal cortical thickness is normal. No calculi or focal parenchymal lesions. No hydronephrosis. Previously identified hypoechoic area in the upper to midpole that was new on August 2022 renal ultrasound is not seen. IMPRESSION: Normal right kidney. Assessment & Plan Assessment & Plan (1) Complex renal cyst: Code(s): N28.1 - Cyst of kidney, acquired (2) Renal calculi: Code(s): N20.0 - Calculus of kidney Plan In office urinalysis results reviewed with the patient today; as noted above. Discussed recent targeted right renal ultrasound results with the patient and her mother today; as noted above. Patient denies any urological issues or concerns at this time. She reports be happy with current voiding parameters. Educated encouraged to drink plenty of water daily. Continue vitamin B6 as discussed and prescribed. Continue adding 1 oz of lemon juice to water daily. Discussed surveillance monitoring. Will obtain renal ultrasound in 1 year. Follow-up in 1 year with imaging to be completed prior; or sooner with any issues, concerns, and or questions. Orders: Orders US renal BI 364 Days N20.0 - Calculus of kidney, N28.1 - Cyst of kidney, acquired AMB Urinalysis Automated Today Z13.9 - Encounter for screening, unspecified Patient Instructions: The patient had an opportunity to ask questions regarding the treatment plan. All questions were answered. Physical exam, labs, and imaging were discussed and reviewed in detail. As well as risks, benefits, and discussion of treatment choices. No major barriers to understanding were identified. The patient expressed understanding and agreement with the above treatment plan. The patient was made aware they should contact our office by phone for worsening of their current condition, the appearance of new symptoms, or with any questions or concerns. Compliance is encouraged with any medications and follow up testing that is ordered. It is a privilege to be allowed the opportunity to participate in? your urological care.? Again, if you have any questions or concerns If you have any questions or concerns please do not hesitate to contact me. The office is [phone]. This note is constructed using voice recognition software. While every effort has been made to ensure accuracy waistband setter errors may have been included. Yours sincerely, MARK Hurtado Coding Level of Care Code Est Pt Level 3 (12244) Diagnoses Complex renal cyst N28.1 Renal calculi N20.0
== END 2022-12-01 11:59 | disposition home or self-care (01) ==
PROVIDERS: PCP Internal Medicine; Visit Provider Nurse Practitioner Family
DX: N28.1 Cyst of kidney, acquired (principal); N20.0 Calculus of kidney
CPT/HCPCS: 99213

== ENCOUNTER → 2022-12-01 11:32 | Outpatient (BNVA) | payer OTHER, SELFPAY | PROVIDERS: PCP Internal Medicine; Visit Provider Nurse Practitioner Family | DX: N28.1 Cyst of kidney, acquired (principal); N20.0 Calculus of kidney | CPT/HCPCS: 81003; 99212 ==

== ENCOUNTER 2022-12-21 07:54 | Outpatient (REF) | payer OTHER, SELFPAY ==
--- NOTE | ~2022-12-21 | FL_ITS ---
EXAMINATION: XR FLUOROSCOPY UPPER GI WITH AIR CLINICAL INFORMATION: Unspecified abdominal pain COMPARISON: None available. TECHNIQUE: Incomplete exam as patient was unable to drink barium after several oral sips. FINDINGS: Following oral administration of thick barium in left upright left oblique view there is normal propagation of bolus from the oral cavity through the pharynx, esophagus into stomach without any evidence of obstruction or narrowing. Subsequently patient refused to drink anymore barium. Exam was terminated. FLUOROSCOPY TIME: 0.9 minutes DOSE AREA PRODUCT: 1.420 uGy-m2 (microgray-meter squared) FL/FL upper GI w air IMPRESSION: Incomplete exam as patient refused to drink anymore barium after having several sips. Visualized esophagus and pharynx is unremarkable.
== END 2022-12-21 07:55 | disposition home or self-care (01) ==
LOC: HO.XRAY 07:54
PROVIDERS: PCP Internal Medicine; Visit Provider Internal Medicine
DX: R10.9 Unspecified abdominal pain (principal)
CPT/HCPCS: 74246

== ENCOUNTER → 2022-12-21 07:54 | Outpatient (BNV) | payer OTHER, SELFPAY | PROVIDERS: PCP Internal Medicine; Visit Provider Radiology Diagnostic Radiology | DX: R10.9 Unspecified abdominal pain (principal); Z91.198 Patient's noncompliance with other medical treatment and regimen for other reason | CPT/HCPCS: 74246 ==

== ENCOUNTER 2023-01-26 15:05 | Outpatient (AMB) | payer OTHER, SELFPAY ==
--- NOTE | 2023-01-26 15:12 | A.OFFPC_ITS ---
Vital Signs 01/26/23 15:13 Height 5 ft 3.5 in Weight 161 lb BMI 28.1 BP 126/80 Blood Pressure Location Lt brachial Position Sitting Pulse 73 Pulse Source Pulse Oximeter Pulse Oximetry (%) 99 Oxygen Delivery Method Room Air Intake Visit Reasons: breast ca Intake Note: Patient here for follow up breast cancer Lacer And Tier Required: No Accompanied by: Mother Allergies No Known Allergies [No Known Allergies*] Allergy (Verified 01/26/23 15:25) Medication List - Last Reconciled 01/26/23 by Rhiannon Bloom MD acetaminophen 500 mg PO Q6H PRN pyridoxine (vitamin B6) 100 mg PO DAILY 90 days tamoxifen 20 mg PO DAILY Tobacco use date assessed: 07/27/22 Dental Screening Dental Screen Date: 01/26/23 Did you have a dental visit in the last 12 months?: Yes Did you have a dental problem in the last 6 months where you did not have access to dental care?: No Was dental information given to patient?: Patient has dentist HPI HPI Comments History of Present Illness Details This is a 47-year-old female with history of breast cancer and renal calculi that comes today accompanied by mother for follow-up on her conditions. Has been on tamoxifen for about 4 years and follows with Oncology for her history of breast cancer. On vitamin B6 for prophylaxis of nephrolithiasis. She does follows with Urology. Denies any chest pain or shortness of breath. 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 Cellulitis Cognitive deficits Migraine headache Recurrent UTI Neurofibromatosis Breast CA Surgical History History of lumpectomy of left breast (03/23/19) History of left breast biopsy (03/01/19) History of lithotripsy (03/2018) History of excision of mass (09/2017) History of local excision of skin lesion (08/17/17) History of right breast biopsy (08/2015) History of bilateral breast biopsy (06/27/15) History of tubal ligation History of excision of lesion Family History Father History of diabetes mellitus CAD (coronary artery disease) Mother History of hypertension History of diabetes mellitus Social History Household Members: Family Housing: Apartment Alcohol intake: never Patient Tobacco Use Status: Never used Tobacco e-Cigarette/Vaping Use: Never Used Second Hand Smoke Exposure: No service: No Current occupational status: unemployed Cognitive needs: No Hearing needs: No Vision needs: Yes (Glasses) Questionnaire Thrive Questionnaire Date Thrive assessed: 07/10/21 SOL-7 AMB Questionnaire SOL-7 Date SOL - 7 assessed: 07/27/22 Source: Developed by Drs. Samuel Martinez, Joleen Sam, Gil Jimenez and colleagues, with an educational lesly from [employer]. Review of Systems Const All systems reviewed & are unremarkable except as noted in HPI and below Eyes Reports no additional complaints, Denies change in vision and Denies other visual disturbances Card Denies chest pain at rest, Denies chest pain with activity, Denies edema, Denies irregular heart rhythm, Denies claudication, Denies dyspnea, Denies dyspnea on exertion, Denies orthopnea, Denies paroxysmal nocturnal dyspnea and Denies slow heart rate Resp Denies cough, Denies dyspnea and Denies dyspnea on exertion GI Denies abdominal pain, Denies change in bowel habits, Denies excessive flatus, Denies nausea and Denies vomiting Denies urinary incontinence, Denies urinary hesitancy and Denies urinary urgency Musc Denies abnormal gait, Denies atrophy, Denies deformity and Denies limited range of motion Skin/Breast Denies bleeding lesions, Denies changing lesions and Denies rash Neuro Denies abnormal gait and Denies lack of coordination Physical exam (Primary Care) Vital Signs: Last Vital Signs Pulse 73 01/26/23 15:13 BP 126/80 01/26/23 15:13 Pulse Ox 99 01/26/23 15:13 Oxygen Delivery Method Room Air 01/26/23 15:13 BMI result Body Mass Index 28.1 Tobacco/Smoking Status: Tobacco use Status Tobacco use date assessed 07/27/22 01/26/23 15:21 Patient Tobacco Use Status Never used Tobacco 01/26/23 15:21 e-Cigarette/Vaping Use Never Used 01/26/23 15:21 Thrive Assessment: Date of Thrive Assessment Date Thrive assessed 07/10/21 01/26/23 15:21 Eyes General: appearance normal, both eyes and all related structures Eyelids: Yes eyelids normal Conjunctivae: conjunctivae normal Neck Neck: Yes normal visual inspection and Yes supple Resp Effort & Inspection: normal respiratory effort Auscultation: clear to auscultation bilaterally Cardio Jugular venous distension: no JVD Rate: regular rate Rhythm: regular rhythm Heart sounds: S1 normal heart sound present and S2 normal heart sound present Skin Other: cafe au lait spots Extrem General: Yes full ROM Office Procedures Flu Questionnaire Does the patient have a severe egg allergy?: No Does the patient have severe life threatening allergies?: No Does the patient have a fever or illness today?: No Has the patient ever had Guillain-[place] Syndrome?: No Has the patient ever had any past reaction to a flu shot?: No Immunizations flu vacc [id number] 6mos up(PF) 60 mcg(15 mcgx4)/0.5 mL IM syringe Performing Provider: Rhiannon Bloom MD Performing Location: [facility] Administered by: ANNALISA Reagan on 01/26/23 15:31 Dose Route Admin Location Dispensed Lot Number Expiration Date NDC Chronic Disease Manager 0.5 mL IM Left Deltoid 0.5 mL [id number] 10/10/23 67044-332-30 [employer] VIS Given Date VIS Provided VIS Publication Date 01/26/23 Single Vaccine 20 Eligibility Eligibility Date Funding Source Not [facility] Eligible 01/26/23 Private Assessment and Plan Assessment & Plan (1) Ductal carcinoma in situ (DCIS) of left breast: Comment: 2019 Code(s): D05.12 - Intraductal carcinoma in situ of left breast Plan: Continue tamoxifen. Follow-up with Oncology. (2) Renal calculi: Code(s): N20.0 - Calculus of kidney Plan: Continue vitamin B6. Orders: Orders Influenza [id number] Immunization Today Z23 - Encounter for immunization Coding Level of Care Code Est Pt Level 3 (20742) Diagnoses Ductal carcinoma in situ (DCIS) of left breast D05.12 Renal calculi N20.0 Time Spent (min) 18
[2023-01-26 15:13] VITALS: BP 126/80; PULSE 73; O2SAT 99; BMI 28.1
== END 2023-01-26 15:35 | disposition home or self-care (01) ==
PROVIDERS: Visit Provider Internal Medicine
DX: D05.12 Intraductal carcinoma in situ of left breast (principal); N20.0 Calculus of kidney; Z23 Encounter for immunization
CPT/HCPCS: 90471; 90686; 99213

== ENCOUNTER 2023-02-12 10:01 | Outpatient (AMB) | payer OTHER, SELFPAY ==
[2023-02-12 10:17] VITALS: BP 136/65; PULSE 67; BMI 28.5
--- NOTE | 2023-02-12 10:17 | MHC.OFFVIS ---
Intake Vital Signs 02/12/23 10:17 Height 5 ft 3.5 in Weight 163 lb 6 oz BMI 28.5 BP 136/65 Blood Pressure Location Lt brachial Position Sitting Pulse 67 Intake Visit Reasons: breast exam Intake Note: Patient is seen in office for 6 month follow up visit, breast exam. Patient c/o: denies any concerns regarding the breast Instructional Specialist Required: Yes Instructional Specialist Language: Information Systems Administrator Name: Neli FANG Information Interpreted: non-clinical & clinical Power Equipment Technology Instructor: Power Equipment Technology Instructor Present Accompanied by: Mother Allergies No Known Allergies [No Known Allergies*] Allergy (Verified 02/12/23 10:19) HPI HPI Comments History of Present Illness Details 47-year-old female patient returning for a six-month follow-up breast examination. She underwent a left breast lumpectomy with needle localization on 03/23/2019 for a ductal carcinoma in situ, ER/NM positive. She also has a previous history of right breast focal ductal hyperplasia with numerous microcalcifications, status post excisional biopsy 08/16/2019. She was evaluated by Dr. Patel and started on tamoxifen. Breast MRI revealed architectural distortion left breast for which a stereotactic guided core biopsy was obtained. This revealed an atypical lobular hyperplasia with radial scar. Wide excision was performed with needle localization on 03/23/2019. The pathology revealed ductal carcinoma in situ grade 2, ER/NM positive with negative margins. She underwent radiation therapy to left breast. A six-month follow-up mammogram of left breast obtained on 08/02/2020 revealed postsurgical changes of the left breast. Residual calcifications similar to the prior examination. Bilateral mammography recommended performed 02/17/2022 revealed post therapy changes with no mammographic evidence of malignancy (BI-RADS 2). Annual screening is recommended in 1 year (scheduled for 02/20/2023). She denies any new breast symptoms and generally feels well. 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 Cellulitis Cognitive deficits Migraine headache Recurrent UTI Neurofibromatosis Breast CA Surgical History History of lumpectomy of left breast (03/23/19) History of left breast biopsy (03/01/19) History of lithotripsy (03/2018) History of excision of mass (09/2017) History of local excision of skin lesion (08/17/17) History of right breast biopsy (08/2015) History of bilateral breast biopsy (06/27/15) History of tubal ligation History of excision of lesion Family History Father History of diabetes mellitus CAD (coronary artery disease) Mother History of hypertension History of diabetes mellitus Social History Household Members: Family Housing: Apartment Alcohol intake: never Patient Tobacco Use Status: Never used Tobacco e-Cigarette/Vaping Use: Never Used Second Hand Smoke Exposure: No service: No Current occupational status: unemployed Cognitive needs: No Hearing needs: No Vision needs: Yes (Glasses) Review of Systems Const All systems reviewed & are unremarkable except as noted in HPI and below Card Reports no additional complaints Resp Reports no additional complaints Denies nipple discharge Skin/Breast Denies breast swelling, Reports breast skin changes, Reports breast pain, Denies breast mass and Denies nipple discharge Physical Exam Const General: cooperative, comfortable, no acute distress, well developed, alert and awake HEENT Head: Yes normocephalic and Yes atraumatic Chest Other: Left breast: No skin change, no nipple retraction, no nipple discharge, no palpable mass, no enlarged lymph nodes. Right breast: No skin change, no nipple retraction, no nipple discharge, no palpable mass, no enlarged lymph nodes. Resp Effort & Inspection: normal respiratory effort, no stridor and not tachypneic Cardio Jugular venous distension: no JVD Rate: regular rate GI Inspection: Yes normal to inspection Skin General skin exam: no rashes or lesions noted Extrem General: Yes no clubbing, cyanosis or edema Assessment & Plan Assessment & Plan (1) Ductal carcinoma in situ (DCIS) of left breast: Comment: 2020 Code(s): D05.12 - Intraductal carcinoma in situ of left breast Plan: Patient returns for follow-up examination following lumpectomy for ductal carcinoma in situ left breast performed on 03/23/2019. She subsequently underwent radiation therapy to the left breast and continues on tamoxifen. A follow-up mammogram revealed areas of calcification in the left breast adjacent to the previous biopsy site. Mammogram dated 02/17/2022 revealed no mammographic evidence of malignancy (BI-RADS 2: Benign). Routine screening mammogram is scheduled for 02/20/2023. I recommended follow-up examination in 6 months, sooner p.r.n.. Coding Level of Care Code Est Pt Level 3 (59138) Diagnoses Ductal carcinoma in situ (DCIS) of left breast D05.12
== END 2023-02-12 10:29 | disposition home or self-care (01) ==
PROVIDERS: PCP Internal Medicine; Visit Provider Surgery
DX: D05.12 Intraductal carcinoma in situ of left breast (principal)
CPT/HCPCS: 99213

== ENCOUNTER → 2023-02-12 10:01 | Outpatient (BNVA) | payer OTHER, SELFPAY | PROVIDERS: PCP Internal Medicine; Visit Provider Surgery | DX: D05.12 Intraductal carcinoma in situ of left breast (principal) | CPT/HCPCS: 99212 ==

== ENCOUNTER 2023-02-20 10:21 | Outpatient (REF) | payer OTHER, SELFPAY ==
--- NOTE | ~2023-02-20 | MM_ITS ---
EXAMINATION: MM SCREENING DIGITAL BREAST TOMOSYNTHESIS, BILATERAL CLINICAL INFORMATION: Screening. Asymptomatic. The patient had a diagnosis of left DCIS and underwent left breast surgery in 2019. COMPARISON: Mammography: This study is compared with prior exams dating back to 2019. TECHNIQUE: Digital breast tomosynthesis is performed in both the craniocaudal and mediolateral oblique views along with computer-aided detection (CAD). Synthesized 2D images are generated from the tomosynthesis. FINDINGS: There are scattered areas of fibroglandular density (ACR BI-RADS breast composition Category b). There are no significant masses, abnormal calcifications, or other abnormalities. There are postsurgical changes in the upper outer quadrant of the left breast. There are scattered calcifications in the right breast which are unchanged from at least 2017. They were examined magnification imaging at that time. MM/MM tomosynthesis screening BI IMPRESSION: No mammographic evidence of malignancy. ASSESSMENT: BI-RADS BI-RADS 2 - Benign Findings RECOMMENDATION: Routine annual mammography screening. 1 year F/U This examination should not preclude the clinical evaluation of a suspicious palpable abnormality. This patient's information was entered into a reminder system with a target due date for their next mammogram.
== END 2023-02-20 10:22 | disposition home or self-care (01) ==
LOC: HO.MAMMO 10:21
PROVIDERS: PCP Internal Medicine; Visit Provider Internal Medicine
DX: Z12.31 Encounter for screening mammogram for malignant neoplasm of breast (principal)
CPT/HCPCS: 77063; 77067

== ENCOUNTER → 2023-02-20 10:45 | Outpatient (BNV) | payer OTHER, SELFPAY | PROVIDERS: PCP Internal Medicine; Visit Provider Radiology Diagnostic Radiology | DX: Z12.31 Encounter for screening mammogram for malignant neoplasm of breast (principal) | CPT/HCPCS: 77063; 77067 ==

== ENCOUNTER 2023-05-05 12:16 | Emergency (ER) | payer OTHER, SELFPAY ==
--- NOTE | 2023-05-05 12:18 | ED_ITS ---
HPI - Dizziness General Chief Complaint: Dizziness Stated Complaint: Dizziness/Vomiting Time Seen by Provider: 05/05/23 16:38 Source: patient, family, RN notes reviewed and old records reviewed Mode of arrival: ambulatory Limitations: other (History of developmental delay) History of Present Illness HPI Narrative: 48-year-old female with past medical history significant for developmental delay, neurofibromatosis, breast cancer presents for evaluation of vomiting, dizziness. Per the patient's caregiver, the patient's symptoms started yesterday. She had a headache yesterday with dizziness. The patient is vomiting started this morning She also had a dry cough for the last couple of days Denies any fevers, chills, sick contacts Patient complains of a mild headache, denies any chest pain, abdominal pain No other complaints or concerns this time. Related Data Home Medications Medication Instructions Recorded Confirmed acetaminophen 500 mg tablet 500 mg PO Q6H PRN Pain 04/23/21 01/26/23 Previous Rx's Medication Instructions Recorded pyridoxine (vitamin B6) 100 mg 100 mg PO DAILY 90 days #90 tabs 10/19/22 tablet tamoxifen 20 mg tablet 20 mg PO DAILY #60 tabs 01/08/23 ondansetron 4 mg disintegrating 4 mg PO Q8H PRN nausea and 05/05/23 tablet vomiting #20 tabs Allergies Allergy/AdvReac Type Severity Reaction Status Date / Time No Known Allergies Allergy Verified 05/05/23 12:22 [No Known Allergies*] Review of Systems 2 Constitutional: Constitutional: Reports chills and Reports fever(s) Eyes: Eyes: Denies blurry vision ENT: Reports dizziness and Denies sore throat Cardiovascular: Cardiovascular: Denies chest pain and Denies dyspnea Respiratory: Respiratory: Denies chest congestion, Reports cough and Denies dyspnea Gastrointestinal: Gastrointestinal: Denies abdominal pain, Reports nausea and Reports vomiting Musculoskeletal: Musculoskeletal: Denies back pain Integumentary/Breasts: Skin/Breast: Denies rash Neurologic: Denies confusion and Reports dizziness Psychiatric: Psychiatric: Denies confusion [facility] Past Medical History 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 Cellulitis Cognitive deficits Migraine headache Recurrent UTI Neurofibromatosis Breast CA Surgical History History of lumpectomy of left breast (03/23/19) History of left breast biopsy (03/01/19) History of lithotripsy (03/2018) History of excision of mass (09/2017) History of local excision of skin lesion (08/17/17) History of right breast biopsy (08/2015) History of bilateral breast biopsy (06/27/15) History of tubal ligation History of excision of lesion Family History Family History Father History of diabetes mellitus CAD (coronary artery disease) Mother History of hypertension History of diabetes mellitus Social History Social History Household Members: Family Housing: Apartment Alcohol intake: never Patient Tobacco Use Status: Never used Tobacco e-Cigarette/Vaping Use: Never Used Second Hand Smoke Exposure: No Advance Directives: No Advance Directives Information Provided: No service: No Current occupational status: unemployed Cognitive needs: No Hearing needs: No Vision needs: Yes (Glasses) Physical Exam 2 Vital Signs: Vital Signs: Last Vital Signs Temp 98.7 F 05/05/23 12:19 Pulse 80 05/05/23 12:19 Resp 18 05/05/23 12:19 BP 146/76 H 05/05/23 12:19 Pulse Ox 99 05/05/23 12:19 O2 Del Method Room Air 05/05/23 12:19 BMI result Body Mass Index 29.0 Const: General: cooperative, healthy appearing, comfortable, no acute distress, alert and awake; No confusion Nutritional Appearance: well nourished Orientation/consciousness: patient oriented x3 and No confusion HEENT: Head: Yes normocephalic and Yes atraumatic Throat: Yes posterior oropharynx normal Eyes: Eyelids: Yes eyelids normal Conjunctivae: conjunctivae normal S clerae: sclerae normal Corneas: corneas normal Pupils: Equal, round and reactive pupils present EOM: EOMs intact bilaterally Neck: Neck: Yes full ROM Resp: Effort & Inspection: normal respiratory effort, able to speak in complete sentences and not labored GI: Inspection: No distended Palpation (GI): Soft to palpation, not firm, nontender, no guarding and not rigid Skin: General skin exam: elasticity normal Neuro: General: patient oriented x3 and No confusion Cranial nerves: Yes Equal, round and reactive pupils present and Yes Bilaterally intact EOM present Course Course Course Narrative: RME: 48 year-old F w/ PMHx breast CA not currently on chemo or radiation, Renal stones presenting to the ED c/o dizziness x yesterday w/MALLORY, vomiting. Admits room spinning, worse w/position changes, admits to similar sx in the past Ambulating w/steady gait EKG, labs, UA, orthostatics ordered Full HPI, ROS and PE to be performed by primary ED provider. Reevaluation(s) Reevaluation #1: Patient tested positive for COVID-19. This explains her vomiting, weakness, cough. She is medically stable for discharge at this time. Time: 18:28 Medications Administered Discontinued Medications Generic Name Dose Route Start Last Admin Trade Name Freq PRN Reason Stop Dose Admin Sodium Chloride 1,000 mls @ 999 mls/hr 05/05/23 17:00 05/05/23 17:32 Ns IV 05/05/23 18:00 999 mls/hr .Q1H1M DAVID Administration Ondansetron HCl 4 mg 05/05/23 16:56 05/05/23 17:32 Ondansetron Hcl 4 Mg/2 Ml Vial IVPUSH 05/05/23 16:57 4 mg ONCE ONE Administration Medical Decision Making Medical Decision Making [facility] Narrative: 48-year-old female presents for evaluation of flu-like symptoms. She complains of cough, vomiting, dizziness. Her neuro exam is nonfocal, doubt central vertigo. Plan for viral swabs, treat with IV fluids and Zofran. Her initial workup including labs are reassuring. EKG is normal sinus rhythm rate of 77 beats per minute. No ischemic changes Differential Diagnosis Differential Diagnoses: The differential diagnosis associated with the presentation includes Influenza COVID-19 Viral syndrome Upper respiratory infection Pneumonia Peripheral vertigo Lab Data [facility] Lab Attestation statement: I reviewed the patient's lab results. Mild leukopenia to 4.3. Patient does a history of mild normocytic anemia. Her hemoglobin is within normal limits, her hematocrit is just below normal at 36.5. Chloride is slightly elevated to 109 which may be related to vomiting. Than normal limits. 05/05/23 12:43 05/05/23 12:43 Labs: Lab Results 05/05/23 05/05/23 Range/Units 12:43 18:01 WBC 4.3 L (4.8-10.8) X10*3/uL RBC 4.08 L (4.20-5.50) X10*6/uL Hgb 12.1 (12.0-16.0) g/dl Hct 36.5 L (37.0-47.0) % MCV 89.5 (80.0-98.0) fL MCH 29.7 (27.0-33.0) pg MCHC 33.2 (31.0-35.0) g/dl RDW 13.2 (11.0-16.0) % Plt Count 188 D (160-400) X10*3/uL MPV 11.3 (9.4-12.3) fL Immature Gran % (Auto) 0.2 (0.0-0.4) % Neut % (Auto) 77.9 H (45-73) % Lymph % (Auto) 11.4 L (20-40) % Island % (Auto) 10.0 (2-11) % Eos % (Auto) 0.0 (0-4) % Baso % (Auto) 0.5 (0-2) % Lymph # (Auto) 0.5 L (1.2-4.9) X10*3/uL Island # (Auto) 0.4 (0.1-1.2) X10*3/uL Eos # (Auto) 0.0 (0.0-0.4) X10*3/uL Baso # (Auto) 0.0 (0.0-0.2) X10*3/uL Abs Immat Gran (auto) 0.01 (0.00-0.03) X10*3/uL Absolute Neuts (auto) 3.3 (2.0-8.3) x10*3/uL Absolute Nucleated RBC 0.000 (0.0-0.012) X10*3/uL Nucleated RBC % (auto) 0.0 (0.0-0.2) /100WBC Sodium 139 (135-145) mmol/L Potassium 3.6 (3.3-5.1) mmol/L Chloride 109 H (96-108) mmol/L Carbon Dioxide 23 (22-29) mmol/L Anion Gap 11 L (12-20) BUN 8 L (9-16) mg/dL Creatinine 0.80 (0.5-1.4) mg/dL Estim Creat Clear Calc 79.8 Estimated GFR > 60 Random Glucose 85 (60-115) mg/dL Calcium 9.2 (8.4-10.2) mg/dL Magnesium 1.9 (1.6-2.6) mg/dL Total Bilirubin 0.6 (0.0-1.0) mg/dL Direct Bilirubin 0.2 (0.0-0.5) mg/dL AST 18 (5-31) U/L ALT 17 (0-31) U/L Alkaline Phosphatase 61 (39-117) U/L Troponin I High Sens < 2.7 (<3.5-17.0) ng/L Total Protein 7.6 (6.5-8.0) g/dL Albumin 4.0 (3.5-5.0) g/dL Urine Color Yellow Urine Appearance Clear Urine pH 5.5 (5.0-9.0) Ur Specific [place] 1.020 (1.005-1.025) Urine Protein Negative (Neg-Trace) mg/dL Urine Glucose (UA) Negative (Negative) mg/dL Urine Ketones Negative (Negative) mg/dL Urine Blood Negative (Negative) Urine Nitrite Negative (Negative) Ur Leukocyte Esterase Negative (Negative) COVID-19 (PETRONA) Positive A (Negative) COVID-19 Clin Com See Note Influenza Type A (ABDIRAHMAN) Negative (Negative) Influenza Type B (ABDIRAHMAN) Negative (Negative) Influenza A & B Note See Note Independent Interpretation I performed an independent interpretation of an: EKG (As above) Discharge Plan Discharge Clinical Impression: COVID-19 Patient Disposition: Home, Self-Care Instructions: COVID-19 (Coronavirus Disease 2019) (ED) Additional Instructions: You tested positive for COVID-19. Use Motrin/Tylenol for fevers, body aches. Drink lots of fluids, small sips at a time. You may use Zofran as needed for nausea/vomit Follow-up with your primary doctor Prescriptions: New ondansetron 4 mg tablet,disintegrating 4 mg PO Q8H PRN (Reason: nausea and vomiting) Qty: 20 0RF No Action acetaminophen [Tylenol Ex Str Rapid Release] 500 mg Tablet 500 mg PO Q6H PRN (Reason: Pain) tamoxifen 20 mg Tablet 20 mg PO DAILY Qty: 60 3RF pyridoxine (vitamin B6) 100 mg tablet 100 mg PO DAILY 90 Days Qty: 90 1RF
[2023-05-05 12:19] VITALS: BP 146/76; PULSE 80; RESP 18; TEMP 37.1; O2SAT 99; BMI 29.0
--- NOTE | 2023-05-05 12:20 | ECG_ITS ---
Test Reason : dizziness Blood Pressure : / mmHG Vent. Rate : 077 BPM Atrial Rate : 077 BPM P-R Int : 116 ms QRS Dur : 076 ms QT Int : 364 ms P-R-T Axes : 034 006 031 degrees QTc Int : 411 ms Normal sinus rhythm Normal ECG When compared with ECG of 09-OCT-2017 18:59, No significant change was found Referred By: Marisa Dalal Electronically Signed By:Hunter Martinez
[2023-05-05 12:48] LABS: MANUAL DIFF FLAG NO
[2023-05-05 12:51] LABS: Basophils Percent Auto 0.5 % (0-2); Hematocrit 36.5 % (37.0-47.0); Hemoglobin 12.1 g/dl (12.0-16.0); Imm Gran Abs Auto 0.01 X10*3/uL (0.00-0.03); Imm Gran Pct Auto 0.2 % (0.0-0.4); Lymphocytes Absolute Auto 0.5 X10*3/uL (1.2-4.9); Lymphocytes Percent Auto 11.4 % (20-40); Mean Corpuscular HGB Conc 33.2 g/dl (31.0-35.0); Mean Corpuscular Hemoglobin 29.7 pg (27.0-33.0); Mean Corpuscular Volume 89.5 fL (80.0-98.0); Mean Platelet Volume 11.3 fL (9.4-12.3); Monocytes Absolute Auto 0.4 X10*3/uL (0.1-1.2); Neutrophils Absolute Auto 3.3 x10*3/uL (2.0-8.3); Neutrophils Percent Auto 77.9 % (45-73); Platelet Count 188 X10*3/uL (160-400); Red Blood Count 4.08 X10*6/uL (4.20-5.50); Red Cell Distribution Width 13.2 % (11.0-16.0); White Blood Count 4.3 X10*3/uL (4.8-10.8)
[2023-05-05 12:52] LABS: Appearance Urine Clear; Color Urine Yellow; Glucose Urine UA Negative (Negative); Leukocyte Esterase Urine Negative (Negative); Nitrite Urine Negative (Negative); PH 5.5 (5.0-9.0); Urine Blood Negative (Negative); Urine Ketones Negative (Negative); Urine Protein Negative (Neg-Trace)
[2023-05-05 13:07] LABS: Alanine Aminotransferase 17 U/L (0-31); Alkaline Phosphatase 61 U/L (39-117); Anion Gap 11 (12-20); Aspartate Amino Transferase 18 U/L (5-31); Bilirubin Direct 0.2 mg/dL (0.0-0.5); Bilirubin Total 0.6 mg/dL (0.0-1.0); Blood Urea Nitrogen 8 mg/dL (9-16); Calcium 9.2 mg/dL (8.4-10.2); Carbon Dioxide 23 mmol/L (22-29); Chloride 109 mmol/L (96-108); Creatinine Clr Calc Pharmacy 79.8; Estimated Glomerular Filt Rate > 60; Glucose Random 85 mg/dL (60-115); Magnesium 1.9 mg/dL (1.6-2.6); Potassium 3.6 mmol/L (3.3-5.1); Sodium 139 mmol/L (135-145); Total Protein 7.6 g/dL (6.5-8.0)
[2023-05-05 13:14] LABS: Troponin-I High Sensitivity < 2.7 ng/L (<3.5-17.0)
[2023-05-05] MEDS: ondansetron HCL 4 MG/2 ML VIAL IVPUSH (17:32)
[2023-05-05] MEDS: 0.9 % Sodium Chloride 1,000 ML 999 ML IV (17:32)
[2023-05-05 18:24] LABS: COVID-19 Test Positive (Negative); IDNOW Serial# 58CA691E; IDNOW Serial# 6674DD1D; Influenza A Negative (Negative); Influenza B2 Negative (Negative)
[2023-05-05 18:32] VITALS: PULSE 85; RESP 18; TEMP 37.9; O2SAT 98
[2023-05-05] MEDS: Acetaminophen 325 MG TABLET 975 MG PO (18:40)
== END 2023-05-05 19:07 | disposition home or self-care (01) ==
PROVIDERS: Physician Assistant; Emergency Provider Emergency Medicine Emergency Medical Services; PCP Internal Medicine
DX: U07.1 COVID-19 (principal); R42 Dizziness and giddiness; R11.10 Vomiting, unspecified; Z79.899 Other long term (current) drug therapy
CPT/HCPCS: 36415; 80048; 80076; 81003; 83735; 84484; 85025; 87502; 87635; 93005; 96374; 99284; J2405

== ENCOUNTER → 2023-05-05 12:20 | Outpatient (BNV) | payer OTHER, SELFPAY | PROVIDERS: PCP Internal Medicine; Visit Provider Internal Medicine Cardiovascular Disease | DX: R42 Dizziness and giddiness (principal) | CPT/HCPCS: 93010 ==

== ENCOUNTER 2023-08-13 09:55 | Outpatient (AMB) | payer OTHER, SELFPAY ==
--- NOTE | 2023-08-13 10:04 | A.OFFVIS_ITS ---
Vital Signs 08/13/23 10:08 Height 5 ft 4 in Weight 162 lb BMI 27.8 BP 141/68 H Blood Pressure Location Lt brachial Position Sitting Pulse 70 Intake Visit Reasons: 6 mth breast exam Intake Note: This patient presents for a six month follow-up breast exam. Patient c/o; reports no breast complaints. Research Lab Assistant Required: Yes Research Lab Assistant Language: K[place]elguhr Regenerator Operator Name: Jamir Information Interpreted: non-clinical & clinical Accompanied by: Mother Allergies No Known Allergies [No Known Allergies*] Allergy (Verified 08/13/23 10:10) Medication List - Last Reconciled 08/13/23 by Leonardo Llanes MD acetaminophen 500 mg PO Q6H PRN pyridoxine (vitamin B6) 100 mg PO DAILY 90 days tamoxifen 20 mg PO DAILY HPI Comments Details: 48-year-old female patient returning for a six-month follow-up breast examination. She underwent a left breast lumpectomy with needle localization on 03/23/2019 for a ductal carcinoma in situ, ER/[place] positive. She also has a previous history of right breast focal ductal hyperplasia with numerous microcalcifications, status post excisional biopsy 08/16/2019. She was evaluated by Dr. Patel and started on tamoxifen. Breast MRI revealed architectural distortion left breast for which a stereotactic guided core biopsy was obtained. This revealed an atypical lobular hyperplasia with radial scar. Wide excision was performed with needle localization on 03/23/2019. The pathology revealed ductal carcinoma in situ grade 2, ER/AR positive with negative margins. She underwent radiation therapy to left breast. Her most recent mammogram dated 02/20/2023 revealed no mammographic evidence of malignancy (BI-RADS 2). She will be due for a routine mammogram in February 2024. She denies any new breast symptoms and generally feels well. 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 Cellulitis Cognitive deficits Migraine headache Recurrent UTI Neurofibromatosis Breast CA Surgical History History of lumpectomy of left breast (03/23/19) History of left breast biopsy (03/01/19) History of lithotripsy (03/2018) History of excision of mass (09/2017) History of local excision of skin lesion (08/17/17) History of right breast biopsy (08/2015) History of bilateral breast biopsy (06/27/15) History of tubal ligation History of excision of lesion Family History Father History of diabetes mellitus CAD (coronary artery disease) Mother History of hypertension History of diabetes mellitus Social History Household Members: Family Housing: Apartment Alcohol intake: never Patient Tobacco Use Status: Never used Tobacco e-Cigarette/Vaping Use: Never Used Second Hand Smoke Exposure: No service: No Current occupational status: unemployed Cognitive needs: No Hearing needs: No Vision needs: Yes (Glasses) Review of Systems Const All systems reviewed & are unremarkable except as noted in HPI and below Card Reports no additional complaints Resp Reports no additional complaints Denies nipple discharge Skin/Breast Denies breast swelling, Reports breast skin changes, Reports breast pain, Denies breast mass and Denies nipple discharge Physical Exam Vital Signs: Last Vital Signs Pulse 70 08/13/23 10:08 BP 141/68 H 08/13/23 10:08 BMI result Body Mass Index 27.8 Const General: cooperative, comfortable, no acute distress, well developed, alert and awake HEENT Head: Yes normocephalic and Yes atraumatic Chest Other: Left breast: No skin change, no nipple retraction, no nipple discharge, no palpable mass, no enlarged lymph nodes. Right breast: No skin change, no nipple retraction, no nipple discharge, no palpable mass, no enlarged lymph nodes. Resp Effort & Inspection: normal respiratory effort, no stridor and not tachypneic Cardio Jugular venous distension: no JVD Rate: regular rate GI Inspection: Yes normal to inspection Skin General skin exam: no rashes or lesions noted Extrem General: Yes no clubbing, cyanosis or edema Assessment & Plan Assessment & Plan (1) Ductal carcinoma in situ (DCIS) of left breast: Comment: 2020 Code(s): D05.12 - Intraductal carcinoma in situ of left breast Category: Surgical Plan: Patient returns for follow-up examination following lumpectomy for ductal carcinoma in situ left breast performed on 03/23/2019. She subsequently underwent radiation therapy to the left breast and continues on tamoxifen. Her most recent mammogram of 02/20/2023 revealed no mammographic evidence of malignancy. Examination today reveals no suspicious findings in either breast and no enlarged lymph nodes. The bilateral breast incisions are clean and intact. I recommended follow-up mammogram in February 2024 with follow-up examination after the next mammogram. At that point she will be transitioned to yearly breast examinations. Orders: Orders MM screening mammo BI 02/22/24 D05.12 - Intraductal carcinoma in situ of left breast Coding Level of Care Code Est Pt Level 3 (53027) Diagnoses Ductal carcinoma in situ (DCIS) of left breast D05.12
[2023-08-13 10:08] VITALS: BP 141/68; PULSE 70; BMI 27.8
== END 2023-08-13 10:25 | disposition home or self-care (01) ==
PROVIDERS: PCP Internal Medicine; Visit Provider Surgery
DX: D05.12 Intraductal carcinoma in situ of left breast (principal)
CPT/HCPCS: 99213

== ENCOUNTER → 2023-08-13 09:55 | Outpatient (BNVA) | payer OTHER, SELFPAY | PROVIDERS: PCP Internal Medicine; Visit Provider Surgery | DX: D05.12 Intraductal carcinoma in situ of left breast (principal) | CPT/HCPCS: 99212 ==

== ENCOUNTER 2023-11-26 07:47 | Outpatient (REF) | payer OTHER, SELFPAY ==
--- NOTE | ~2023-11-26 | US_ITS ---
EXAMINATION: US BILATERAL KIDNEYS CLINICAL INFORMATION: Renal calculus. COMPARISON: Renal ultrasound 10/30/2022, CT abdomen and pelvis 10/02/2022. TECHNIQUE: Real-time imaging of the kidneys. FINDINGS: RIGHT KIDNEY: 12.2 x 4.4 x 5.8 cm (SAG x AP x TRV). The kidney is normal in size, contour, and echogenicity. Renal cortical thickness is normal. No calculi or focal parenchymal lesions. No hydronephrosis. LEFT KIDNEY: 11.4 x 4.4 x 4.7 cm (SAG x AP x TRV). The kidney is normal in size, contour, and echogenicity. Renal cortical thickness is normal. 6 mm nonobstructing calculus in the lower pole. 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 The degree of dilatation is less prominent than on the prior CT scan. US/US renal BI IMPRESSION: 6 mm nonobstructing calculus in the lower left kidney. 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 Electronically signed by: Abdulkadir Kahn MD 12/15/2023 10:12 AM EDT
== END 2023-11-26 07:48 | disposition home or self-care (01) ==
LOC: HO.US 07:47
PROVIDERS: PCP Internal Medicine; Visit Provider Nurse Practitioner Family
DX: N20.0 Calculus of kidney (principal); N28.1 Cyst of kidney, acquired
CPT/HCPCS: 76775

== ENCOUNTER 2023-12-03 10:36 | Outpatient (AMB) | payer OTHER, SELFPAY ==
--- NOTE | 2023-12-03 10:55 | MHC.OFFVIS ---
Intake Visit Reasons: 1yr follow up/US(pending 11/25) Intake Note: Patient is present for follow up cyst of kidney/ultrasound results Imaging Completed: 11/26/23 Urology Medications: Vitamin B6 Blood Thinner: none Investment Specialist Required: Yes Investment Specialist Services: Investment Specialist Present Investment Specialist Name: [id number] Accompanied by: Unknown Allergies No Known Allergies [No Known Allergies*] Allergy (Verified 12/03/23 11:21) Medication List - Last Reconciled 12/03/23 by MARK Hurtado acetaminophen 500 mg PO Q6H PRN pyridoxine (vitamin B6) 100 mg PO DAILY 90 days tamoxifen 20 mg PO DAILY HPI Comments Details: Xiomy is a pleasant 48-year-old Montenegrin-speaking female patient of Dr. Curtis Bloom who was accompanied by her mom at today's visit. She has a past medical history of breast cancer, cellulitis, cognitive deficits, migraines, neurofibromatosis, recurrent urinary tract infections, and nephrolithiasis. She presents to the office today for follow-up of her nephrolithiasis and recurrent urinary tract infections. She reports since her last office visit here a year ago she has had no bothersome urinary issues or concerns. Recent renal imaging results reviewed with the patient today. Right kidney with no calculi, lesions, and or hydronephrosis. Left kidney was 6 mm nonobstructing calculus in the lower pole. In in office urinalysis results reviewed with the patient today. When asked patient denies urinary urgency, urinary frequency, incontinence, nocturia, hematuria, dysuria, foul smelling urine, changes to urinary stream, flank pain, fever, and or chills. She is happy with her current voiding parameters. When asked she reports compliance with vitamin B6 and adequate hydration. S otherwise offers no other issues or concerns at this time. 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 Cellulitis Cognitive deficits Migraine headache Recurrent UTI Neurofibromatosis Breast CA Surgical History History of lumpectomy of left breast (03/23/19) History of left breast biopsy (03/01/19) History of lithotripsy (03/2018) History of excision of mass (09/2017) History of local excision of skin lesion (08/17/17) History of right breast biopsy (08/2015) History of bilateral breast biopsy (06/27/15) History of tubal ligation History of excision of lesion Family History Father History of diabetes mellitus CAD (coronary artery disease) Mother History of hypertension History of diabetes mellitus Social History Household Members: Family Housing: Apartment Alcohol intake: never Patient Tobacco Use Status: Never used Tobacco e-Cigarette/Vaping Use: Never Used Second Hand Smoke Exposure: No service: No Current occupational status: unemployed Cognitive needs: No Hearing needs: No Vision needs: Yes (Glasses) Review of Systems Const All systems reviewed & are unremarkable except as noted in HPI and below Eyes Reports no additional complaints ENT Reports no additional complaints Card Reports no additional complaints Resp Reports no additional complaints GI Reports no additional complaints Reports as per HPI Musc Reports no additional complaints Neuro Reports no additional complaints Psych Reports no additional complaints Endo Reports no additional complaints Isaac/Lymph Reports as per HPI Aller/Immun Reports no additional complaints Physical Exam Const General: cooperative, healthy appearing, comfortable, no acute distress, well developed, alert and awake Orientation/consciousness: patient oriented x3 Limitations: no limitations HEENT Head: Yes normal to inspection, Yes normocephalic and Yes atraumatic Ears: hearing grossly normal bilaterally Eyes General: appearance normal, both eyes and all related structures Neck Neck: Yes normal visual inspection and Yes trachea midline Chest Chest palpation & inspection: normal inspection of the chest Resp Effort & Inspection: normal respiratory effort and able to speak in complete sentences Cardio Rate: regular rate GI Inspection: Yes normal to inspection General: Yes no CVA tenderness Back/Spine/Pelvis Back: no CVA tenderness Skin General skin exam: no rashes or lesions noted Neuro General: patient oriented x3 Extrem General: Yes normal to inspection Psych Appearance: grossly normal and well kempt Mental Status: mental status grossly normal Speech and movement: Normal speech and movement present and Clear speech present Affect: normal affect Attitude: cooperative Thought process: Normal thought process present Thought content: Normal thought content present Insight: Good insight present (Psych) Judgement: Good judgement present (Psych) Results AMB Urinalysis, Automated UA Leukoctes 0 Chandan/uL Last Edit by [employer] on 12/03/23 11:10 UA Nitrite Last Edit by [employer] on 12/03/23 11:10 UA Urobilinogen 0.2 mg/dL Last Edit by [employer] on 12/03/23 11:10 UA Protein 0 mg/dL Last Edit by [employer] on 12/03/23 11:10 UA pH 6.0 Last Edit by [employer] on 12/03/23 11:10 UA Blood 0 Gurinder/uL Last Edit by [employer] on 12/03/23 11:10 UA Specific [place] 1.015 Last Edit by [employer] on 12/03/23 11:10 UA Ketone Last Edit by [employer] on 12/03/23 11:10 UA Bilirubin 0 mg/dL Last Edit by [employer] on 12/03/23 11:10 UA Glucose 0 mg/dL Last Edit by [employer] on 12/03/23 11:10 Results Reviewed Results Reviewed: Laboratory Last Values Urine pH (Auto) 6.0 12/03/23 11:09 Specific [place] (Auto) 1.015 12/03/23 11:09 Urine Protein (Auto) 0 mg/dL 12/03/23 11:09 Glucose (UA)(Auto) 0 mg/dL 12/03/23 11:09 Urine Blood (Auto) 0 Gurinder/uL 12/03/23 11:09 Urine Bilirubin (Auto) 0 mg/dL 12/03/23 11:09 Urine Urobilinogen (Auto) 0.2 mg/dL 12/03/23 11:09 Leukocyte Esterase (Auto) 0 Chandan/uL 12/03/23 11:09 Date of Service: 11/26/23 EXAMINATION: US BILATERAL KIDNEYS FINDINGS: RIGHT KIDNEY: 12.2 x 4.4 x 5.8 cm (SAG x AP x TRV). The kidney is normal in size, contour, and echogenicity. Renal cortical thickness is normal. No calculi or focal parenchymal lesions. No hydronephrosis. LEFT KIDNEY: 11.4 x 4.4 x 4.7 cm (SAG x AP x TRV). The kidney is normal in size, contour, and echogenicity. Renal cortical thickness is normal. 6 mm nonobstructing calculus in the lower pole. 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 The degree of dilatation is less prominent than on the prior CT scan. IMPRESSION: 6 mm nonobstructing calculus in the lower left kidney. 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 Assessment & Plan Assessment & Plan (1) Complex renal cyst: Code(s): N28.1 - Cyst of kidney, acquired Category: Medical (2) Renal calculi: Code(s): N20.0 - Calculus of kidney Category: Medical (3) Recurrent UTI: Code(s): N39.0 - Urinary tract infection, site not specified Category: Medical Plan In office urinalysis results reviewed with the patient today; as noted above. Recent renal imaging results reviewed with the patient today; as noted above. Discussed surgical intervention versus surveillance monitoring; risks and benefits of these interventions were discussed. Patient currently denies any bothersome urinary issues or concerns. She reports be happy with current voiding parameters. Continue vitamin B6. Discussed, educated, and stressed the importance of adequate hydration relation to nephrolithiasis, recurrent urinary tract infections, and overall health and well-being. Will obtain renal ultrasound in 1 year. Follow-up 1 year with imaging to be completed prior; or sooner with any issues, concerns, and or questions. Orders: Orders AMB Urinalysis Automated 12/03/23 Z13.9 - Encounter for screening, unspecified US renal BI 1 Year N20.0 - Calculus of kidney Patient Instructions: The patient had an opportunity to ask questions regarding the treatment plan. All questions were answered. Physical exam, labs, and imaging were discussed and reviewed in detail. As well as risks, benefits, and discussion of treatment choices. No major barriers to understanding were identified. The patient expressed understanding and agreement with the above treatment plan. The patient was made aware they should contact our office by phone for worsening of their current condition, the appearance of new symptoms, or with any questions or concerns. Compliance is encouraged with any medications and follow up testing that is ordered. It is a privilege to be allowed the opportunity to participate in? your urological care.? Again, if you have any questions or concerns If you have any questions or concerns please do not hesitate to contact me. The office is [phone]. This note is constructed using voice recognition software. While every effort has been made to ensure accuracy shade maker errors may have been included. Yours sincerely, MARK Hurtado Coding Level of Care Code Est Pt Level 3 (82126) Diagnoses Complex renal cyst N28.1 Renal calculi N20.0 Recurrent UTI N39.0
== END 2023-12-03 11:18 | disposition home or self-care (01) ==
PROVIDERS: PCP Internal Medicine; Visit Provider Nurse Practitioner Family
DX: N28.1 Cyst of kidney, acquired (principal); N20.0 Calculus of kidney; N39.0 Urinary tract infection, site not specified
CPT/HCPCS: 99213

== ENCOUNTER → 2023-12-03 10:36 | Outpatient (BNVA) | payer OTHER, SELFPAY | PROVIDERS: PCP Internal Medicine; Visit Provider Nurse Practitioner Family | DX: N28.1 Cyst of kidney, acquired (principal); N20.0 Calculus of kidney; N39.0 Urinary tract infection, site not specified | CPT/HCPCS: 81003; 99212 ==

== ENCOUNTER 2024-02-17 11:48 | Outpatient (REF) | payer OTHER, SELFPAY ==
[2024-02-17 13:01] LABS: Appearance Urine Clear; Color Urine Yellow; Glucose Urine UA Negative (Negative); Leukocyte Esterase Urine Negative (Negative); Nitrite Urine Negative (Negative); PH 5.5 (5.0-9.0); Specific Gravity - Urine 1.015 (1.005-1.025); Urine Blood Negative (Negative); Urine Ketones Negative (Negative); Urine Protein Negative (Neg-Trace)
[2024-02-17 13:18] LABS: Anion Gap 12 (12-20); Blood Urea Nitrogen 14 mg/dL (9-16); Calcium 9.2 mg/dL (8.4-10.2); Carbon Dioxide 24 mmol/L (22-29); Chloride 109 mmol/L (96-108); Estimated Glomerular Filt Rate > 60; Potassium 4.1 mmol/L (3.3-5.1); Sodium 141 mmol/L (135-145)
[2024-02-17 13:31] LABS: Creatinine Urine 94.12 mg/dL; Microalbum/Creatinine Ratio Ur 7.4 ug/mg cr (<30); Total Protein Urine Random < 7 mg/dL (<12)
== END 2024-02-17 11:49 | disposition home or self-care (01) ==
LOC: HO.LAB 11:48
PROVIDERS: PCP Internal Medicine; Visit Provider Internal Medicine Nephrology
DX: Q85.01 Neurofibromatosis, type 1 (principal)
CPT/HCPCS: 36415; 80051; 81003; 82043; 82310; 82565; 82570; 84156; 84520

== ENCOUNTER 2024-04-18 10:12 | Outpatient (AMB) | payer OTHER, SELFPAY ==
--- NOTE | 2024-04-18 10:20 | MHC.OFFVIS ---
Vital Signs 04/18/24 10:28 Height 5 ft 4 in Weight 163 lb 8 oz BMI 28.1 BP 154/76 H Blood Pressure Location Lt brachial Position Sitting Pulse 68 Intake Visit Reasons: 6 month breast exam Intake Note: Patient is seen in office for 6 month follow up visit, breast exam. Pt c/o: no concerns regarding the breast mm sched: 04/25/24 Superintendent Tests Required: Yes Superintendent Tests Language: Revenue Enforcement Collection Agent Services: Superintendent Tests Present Superintendent Tests Name: Neli FANG Information Interpreted: non-clinical & clinical Needle Punch Machine Operator: Needle Punch Machine Operator Present Accompanied by: Mother Allergies No Known Allergies [No Known Allergies*] Allergy (Verified 04/18/24 10:29) Medication List - Last Reconciled 04/18/24 by Leonardo Llanes MD acetaminophen 500 mg PO Q6H PRN pyridoxine (vitamin B6) 100 mg PO DAILY 90 days tamoxifen 20 mg PO DAILY HPI Comments Details: 48-year-old female patient returning for a six-month follow-up breast examination. She underwent a left breast lumpectomy with needle localization on 03/23/2019 for a ductal carcinoma in situ, ER/[place] positive. She also has a previous history of right breast focal ductal hyperplasia with numerous microcalcifications, status post excisional biopsy 08/16/2019. She was evaluated by Dr. Patel and started on tamoxifen. Breast MRI revealed architectural distortion left breast for which a stereotactic guided core biopsy was obtained. This revealed an atypical lobular hyperplasia with radial scar. Wide excision was performed with needle localization on 03/23/2019. The pathology revealed ductal carcinoma in situ grade 2, ER/[place] positive with negative margins. She underwent radiation therapy to left breast. Her most recent mammogram dated 02/20/2023 revealed no mammographic evidence of malignancy (BI-RADS 2). She missed her scheduled mammogram in February but has been rescheduled for 04/25/2024. She denies any new breast symptoms and generally feels well. 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 Cellulitis Cognitive deficits Migraine headache Recurrent UTI Neurofibromatosis Breast CA Surgical History History of lumpectomy of left breast (03/23/19) History of left breast biopsy (03/01/19) History of lithotripsy (03/2018) History of excision of mass (09/2017) History of local excision of skin lesion (08/17/17) History of right breast biopsy (08/2015) History of bilateral breast biopsy (06/27/15) History of tubal ligation History of excision of lesion Family History Father History of diabetes mellitus CAD (coronary artery disease) Mother History of hypertension History of diabetes mellitus Social History Household Members: Family Housing: Apartment Alcohol intake: never Patient Tobacco Use Status: Never used Tobacco e-Cigarette/Vaping Use: Never Used Second Hand Smoke Exposure: No service: No Current occupational status: unemployed Cognitive needs: No Hearing needs: No Vision needs: Yes (Glasses) Review of Systems Const All systems reviewed & are unremarkable except as noted in HPI and below Card Reports no additional complaints Resp Reports no additional complaints Denies nipple discharge Skin/Breast Denies breast swelling, Reports breast skin changes, Reports breast pain, Denies breast mass and Denies nipple discharge Physical Exam Vital Signs: Last Vital Signs Pulse 68 04/18/24 10:28 BP 154/76 H 04/18/24 10:28 BMI result Body Mass Index 28.1 Const General: cooperative, comfortable, no acute distress, well developed, alert and awake HEENT Head: Yes normocephalic and Yes atraumatic Chest Other: Left breast: No skin change, no nipple retraction, no nipple discharge, no palpable mass, no enlarged lymph nodes. Right breast: No skin change, no nipple retraction, no nipple discharge, no palpable mass, no enlarged lymph nodes. Chest/axillae images: 1. Resp Effort & Inspection: normal respiratory effort, no stridor and not tachypneic Cardio Jugular venous distension: no JVD Rate: regular rate GI Inspection: Yes normal to inspection Skin General skin exam: no rashes or lesions noted Neuro Other: Mobility Assessment: 1. 3 meter assessment time (seconds) 4 2. Gait observations: Normal balance and gait Extrem General: Yes no clubbing, cyanosis or edema Assessment & Plan Assessment & Plan (1) Ductal carcinoma in situ (DCIS) of left breast: Comment: 2020 Code(s): D05.12 - Intraductal carcinoma in situ of left breast Category: Surgical Plan: Patient returns for follow-up examination following lumpectomy for ductal carcinoma in situ left breast performed on 03/23/2019. She subsequently underwent radiation therapy to the left breast and continues on tamoxifen. Her most recent mammogram of 02/20/2023 revealed no mammographic evidence of malignancy. Examination today reveals no suspicious findings in either breast and no enlarged lymph nodes. The bilateral breast incisions are clean and intact. She is scheduled for annual mammogram on 04/25/2024. She will follow-up for a breast examination in 1 year, sooner p.r.n.. Coding Level of Care Code Est Pt Level 3 (44589) Complex EM visit Add On G2211 Diagnoses Ductal carcinoma in situ (DCIS) of left breast D05.12
[2024-04-18 10:28] VITALS: BP 154/76; PULSE 68; BMI 28.1
== END 2024-04-18 10:39 | disposition home or self-care (01) ==
PROVIDERS: PCP Internal Medicine; Visit Provider Surgery
DX: D05.12 Intraductal carcinoma in situ of left breast (principal)
CPT/HCPCS: 99213; G2211

== ENCOUNTER → 2024-04-18 10:12 | Outpatient (BNVA) | payer OTHER, SELFPAY | PROVIDERS: PCP Internal Medicine; Visit Provider Surgery | DX: Z85.3 Personal history of malignant neoplasm of breast (principal) | CPT/HCPCS: 99212 ==

== ENCOUNTER 2024-04-25 13:38 | Outpatient (REF) | payer OTHER, SELFPAY | END 2024-04-25 13:39 | disposition home or self-care (01) | LOC: HO.MAMMO 13:38 | PROVIDERS: PCP Internal Medicine; Visit Provider Surgery | DX: Z12.31 Encounter for screening mammogram for malignant neoplasm of breast (principal) | CPT/HCPCS: 77063; 77067 ==

== ENCOUNTER → 2024-04-25 13:45 | Outpatient (BNV) | payer OTHER, SELFPAY | PROVIDERS: PCP Internal Medicine; Visit Provider Internal Medicine | DX: Z12.31 Encounter for screening mammogram for malignant neoplasm of breast (principal) | CPT/HCPCS: 77063; 77067 ==

== ENCOUNTER 2024-05-10 12:39 | Emergency (ER) | payer OTHER, SELFPAY ==
--- NOTE | ~2024-05-10 | CT_ITS ---
EXAMINATION: CT HEAD WITHOUT CONTRAST CLINICAL INFORMATION: Fall, syncope, head strike. COMPARISON: 10/11/2017 TECHNIQUE: Contiguous axial imaging was performed from the skull base to vertex without intravenous administration of contrast. This CT examination was performed using dose optimization techniques as appropriate, variously including the following: *Automated exposure control *Adjustment of mA and/or kV according to patient size (this includes techniques or standardized protocols for targeted exams where dose is matched to indication/reason for exam; i.e. extremities or head) *Use of iterative reconstruction technique FINDINGS: There is no evidence of intracranial hemorrhage or extra-axial fluid collection. There is no mass effect, or edema. No CT evidence of acute territorial infarct. Ventricles, sulci, and cisterns are normal in size and configuration for patient age. No hydrocephalus. No midline shift. No significant white matter abnormalities. Normal pituitary. Globes and orbital contents image normally. No extracranial soft tissue abnormalities. The imaged paranasal sinuses, mastoid air cells, and tympanic cavities are normally aerated. No suspicious bony abnormalities. No fractures evident. CT/CT head/brain wo IV con IMPRESSION: No acute intracranial abnormality. No fracture evident. Electronically signed by: Rajinder Johnson MD 05/10/2024 02:[address] [facility]
--- NOTE | ~2024-05-10 | CT_ITS ---
EXAMINATION: CT CERVICAL SPINE WITHOUT CONTRAST CLINICAL INFORMATION: Fall, head strike, neck pain. COMPARISON: None available. TECHNIQUE: Spiral CT of the cervical spine was performed in axial plane without IV contrast. Sagittal, coronal, and thin section axial reformatted images were constructed from the axial data set. This CT examination was performed using dose optimization techniques as appropriate, variously including the following: *Automated exposure control *Adjustment of mA and/or kV according to patient size (this includes techniques or standardized protocols for targeted exams where dose is matched to indication/reason for exam; i.e. extremities or head) *Use of iterative reconstruction technique FINDINGS: There is a normal lordosis with no scoliosis. No fractures, compression deformities, traumatic subluxation, or suspicious focal bony lesion. Moderate degenerative disc changes at C5-6 and C6-7. Normal facet alignment. Craniocervical junction, C1-2 articulation are intact and normally aligned. No subluxations. No evidence of significant central canal stenosis or large disc herniation allowing for technique limitation. The prevertebral soft tissues are normal. Imaged lung apices are clear bilaterally. Normal thyroid appearance. CT/CT cervical spine wo IV con IMPRESSION: 1. No CT evidence of acute cervical spine fracture or injury. 2. Degenerative disc changes C5-6 and C6-7. Electronically signed by: Rajinder Johnson MD 05/10/2024 02:29 PM [facility]
[2024-05-10 13:03] VITALS: BP 144/66; PULSE 77; RESP 18; TEMP 37.2; O2SAT 98; BMI 28.9
--- NOTE | 2024-05-10 13:14 | ECG_ITS ---
Test Reason : SYNCOPE Blood Pressure : */* mmHG Vent. Rate : 64 BPM Atrial Rate : 64 BPM P-R Int : 124 ms QRS Dur : 74 ms QT Int : 396 ms P-R-T Axes : 21 -8 1 degrees QTcB Int : 408 ms Normal sinus rhythm Minimal voltage criteria for LVH, may be normal variant ( R in aVL ) Cannot rule out Anterior infarct , age undetermined - could be related to body habitus and lead placement Abnormal ECG When compared with ECG of 05-May-2023 12:39, No significant change was found Referred By: Zohreh Rutherford Electronically Signed By: BRYON ALCALA
[2024-05-10 14:21] LABS: Basophils Percent Auto 0.4 % (0-2); Eosinophils Percent Auto 0.6 % (0-4); Hematocrit 35.5 % (37.0-47.0); Hemoglobin 12.1 g/dl (12.0-16.0); Imm Gran Abs Auto 0.01 X10*3/uL (0.00-0.03); Imm Gran Pct Auto 0.1 % (0.0-0.4); Lymphocytes Absolute Auto 1.4 X10*3/uL (1.2-4.9); MANUAL DIFF FLAG NO; Mean Corpuscular HGB Conc 34.1 g/dl (31.0-35.0); Mean Corpuscular Hemoglobin 29.8 pg (27.0-33.0); Mean Corpuscular Volume 87.4 fL (80.0-98.0); Monocytes Absolute Auto 0.4 X10*3/uL (0.1-1.2); Monocytes Percent Auto 5.9 % (2-11); Neutrophils Absolute Auto 5.3 x10*3/uL (2.0-8.3); Platelet Count 241 X10*3/uL (160-400); Red Blood Count 4.06 X10*6/uL (4.20-5.50); Red Cell Distribution Width 12.2 % (11.0-16.0); White Blood Count 7.1 X10*3/uL (4.8-10.8)
[2024-05-10 14:43] LABS: Alanine Aminotransferase 20 U/L (0-31); Alkaline Phosphatase 74 U/L (39-117); Anion Gap 10 (12-20); Aspartate Amino Transferase 21 U/L (5-31); Bilirubin Direct 0.2 mg/dL (0.0-0.5); Bilirubin Total 0.7 mg/dL (0.0-1.0); Blood Urea Nitrogen 12 mg/dL (9-16); Calcium 8.7 mg/dL (8.4-10.2); Carbon Dioxide 24 mmol/L (22-29); Chloride 110 mmol/L (96-108); Creatinine Clr Calc Pharmacy 81.9; Estimated Glomerular Filt Rate > 60; Glucose Random 75 mg/dL (60-115); Magnesium 1.8 mg/dL (1.6-2.6); Potassium 4.1 mmol/L (3.3-5.1); Sodium 140 mmol/L (135-145); Total Protein 7.7 g/dL (6.5-8.0)
[2024-05-10 14:44] LABS: Troponin-I High Sensitivity < 2.7 ng/L (<3.5-17.0)
[2024-05-10 18:23] VITALS: BP 126/77; PULSE 68; RESP 16; TEMP 37.2; O2SAT 98
--- NOTE | 2024-05-10 19:14 | ED_ITS ---
HPI - Fall General Chief Complaint: Fall Stated Complaint: AMS Fall Head Pain 05/09/24 Time Seen by Provider: 05/10/24 18:24 Source: patient and family Limitations: language barrier History of Present Illness ED Provider: Jessika Ruffin PA-C HPI Narrative: 49-year-old female with a history of neurofibromatosis, left breast cancer, recurrent urinary tract infections, kidney stones, presents with chest pain. Patient states while doing dishes, she developed a sharp central pain in her chest which caused her to collapse. Her mother heard her screaming in the kitchen, the patient could not explain why she collapsed. There was no loss of consciousness, but the patient did hit her head. The incident happened yesterday. The pain was transient and has not returned. There was no preceding palpitation, shortness of breath diaphoresis nausea or vomiting. No recent cough cold symptoms fever. Related Data Home Medications ?Medication ?Instructions ?Recorded ?Confirmed acetaminophen 500 mg tablet 500 mg PO Q6H PRN Pain 04/23/21 04/18/24 Previous Rx's ?Medication ?Instructions ?Recorded pyridoxine (vitamin B6) 100 mg 100 mg PO DAILY 90 days #90 tabs 10/19/22 tablet tamoxifen 20 mg tablet 20 mg PO DAILY #60 tabs 01/08/23 Allergies Allergy/AdvReac Type Severity Reaction Status Date / Time No Known Allergies Allergy Verified 05/10/24 13:09 [No Known Allergies*] Review of Systems 2 Review of Systems: Yes all other systems are reviewed and are negative Constitutional: Constitutional: Denies fatigue, Denies fever(s) and Denies headache(s) ENT: Denies dizziness and Denies headache(s) Cardiovascular: Cardiovascular: Reports chest pain, Denies syncope, Denies irregular heart rhythm, Denies palpitations and Denies dyspnea Respiratory: Respiratory: Denies cough and Denies dyspnea Gastrointestinal: Gastrointestinal: Denies abdominal pain, Denies nausea and Denies vomiting Neurologic: Denies dizziness, Denies syncope and Denies headache(s) Endocrine: Endocrine: Denies fatigue and Denies palpitations PMFSH Past Medical History Attestation statement: The following information was validated with the patient. 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 Cellulitis Cognitive deficits Migraine headache Recurrent UTI Neurofibromatosis Breast CA Surgical History History of lumpectomy of left breast (03/23/19) History of left breast biopsy (03/01/19) History of lithotripsy (03/2018) History of excision of mass (09/2017) History of local excision of skin lesion (08/17/17) History of right breast biopsy (08/2015) History of bilateral breast biopsy (06/27/15) History of tubal ligation History of excision of lesion Family History Family History Father History of diabetes mellitus CAD (coronary artery disease) Mother History of hypertension History of diabetes mellitus Social History Social History Household Members: Family Housing: Apartment Alcohol intake: never Patient Tobacco Use Status: Never used Tobacco e-Cigarette/Vaping Use: Never Used Second Hand Smoke Exposure: No Advance Directives: No Advance Directives Information Provided: Yes Do you have a plan to hurt others: No Plan service: No Current occupational status: unemployed Cognitive needs: No Hearing needs: No Vision needs: Yes (Glasses) Physical Exam 2 Vital Signs: Vital Signs: Last Vital Signs Temp 99.0 F 05/10/24 18:23 Pulse 68 05/10/24 18:23 Resp 16 05/10/24 18:23 BP 126/77 05/10/24 18:23 Pulse Ox 98 05/10/24 18:23 O2 Del Method Room Air 05/10/24 18:23 BMI result Body Mass Index 28.9 Const: Other: Alert, appears older than stated age Orientation/consciousness: patient oriented x3 Resp: Other: Nonlabored respirations Cardio: Other: Normal peripheral perfusion Skin: Other: Warm dry no rash Neuro: General: patient oriented x3, gait normal, no focal motor deficits and CN's II-XI intact bilaterally Psych: Other: Cooperative, somewhat flat affect Medical Decision Making Medical Decision Making MDM Narrative: 49-year-old female with a history of neurofibromatosis, left breast cancer, recurrent urinary tract infections, kidney stones, presents with chest pain. Patient states while doing dishes, she developed a sharp central pain in her chest which caused her to collapse. Her mother heard her screaming in the kitchen, the patient could not explain why she collapsed. There was no loss of consciousness, but the patient did hit her head. The incident happened yesterday. The pain was transient and has not returned. There was no preceding palpitation, shortness of breath diaphoresis nausea or vomiting. No recent cough cold symptoms fever. No relevant chronic issues History: Per patient and her mother I have considered the following differential diagnoses: Intracranial hemorrhage, cervical spine injury, ACS, syncope, new arrhythmia, Plan: The patient and actually did not have a syncopal episode, she never lost consciousness. She had no preceding palpitations to suggest new arrhythmia. Given the chest discomfort, ACS was considered, screening labs including cardiac enzymes, EKG and chest x-ray were obtained. CT scan of the brain and cervical spine were ordered as well from triage, it is reassuring that the patient does not have any neurologic deficits is not actively vomiting to suggest an intracranial hemorrhage. She has no report of neck pain. I have independently reviewed the following tests: Labs: No leukocytosis, not anemic, no electrolyte abnormality, troponin negative, patient tested positive for COVID-19 5 days ago, perhaps this is part of her discomfort EKG: Normal sinus rhythm, rate of 64, no ischemic changes no ectopy CT brain: CT/CT head/brain wo IV con IMPRESSION: No acute intracranial abnormality. No fracture evident. Electronically signed by: Rajinder Johnson MD 05/10/2024 02:[address] cervical spine: CT/CT cervical spine wo IV con IMPRESSION: 1. No CT evidence of acute cervical spine fracture or injury. 2. Degenerative disc changes C5-6 and C6-7. Electronically signed by: Rajinder Johnson MD 05/10/2024 02:29 PM EST RP Lab Data 05/10/24 14:15 05/10/24 14:15 Labs: Lab Results 05/10/24 Range/Units 14:15 WBC 7.1 (4.8-10.8) X10*3/uL RBC 4.06 L (4.20-5.50) X10*6/uL Hgb 12.1 (12.0-16.0) g/dl Hct 35.5 L (37.0-47.0) % MCV 87.4 (80.0-98.0) fL MCH 29.8 (27.0-33.0) pg MCHC 34.1 (31.0-35.0) g/dl RDW 12.2 (11.0-16.0) % Plt Count 241 (160-400) X10*3/uL MPV 11.0 (9.4-12.3) fL Immature Gran % (Auto) 0.1 (0.0-0.4) % Neut % (Auto) 74.0 H (45-73) % Lymph % (Auto) 19.0 L (20-40) % Elbert % (Auto) 5.9 (2-11) % Eos % (Auto) 0.6 (0-4) % Baso % (Auto) 0.4 (0-2) % Lymph # (Auto) 1.4 (1.2-4.9) X10*3/uL Elbert # (Auto) 0.4 (0.1-1.2) X10*3/uL Eos # (Auto) 0.0 (0.0-0.4) X10*3/uL Baso # (Auto) 0.0 (0.0-0.2) X10*3/uL Abs Immat Gran (auto) 0.01 (0.00-0.03) X10*3/uL Absolute Neuts (auto) 5.3 (2.0-8.3) x10*3/uL Absolute Nucleated RBC 0.000 (0.0-0.012) X10*3/uL Nucleated RBC % (auto) 0.0 (0.0-0.2) /100WBC Sodium 140 (135-145) mmol/L Potassium 4.1 (3.3-5.1) mmol/L Chloride 110 H (96-108) mmol/L Carbon Dioxide 24 (22-29) mmol/L Anion Gap 10 L (12-20) BUN 12 (9-16) mg/dL Creatinine 0.80 (0.5-1.4) mg/dL Estim Creat Clear Calc 81.9 Estimated GFR > 60 Random Glucose 75 (60-115) mg/dL Calcium 8.7 (8.4-10.2) mg/dL Magnesium 1.8 (1.6-2.6) mg/dL Total Bilirubin 0.7 (0.0-1.0) mg/dL Direct Bilirubin 0.2 (0.0-0.5) mg/dL AST 21 (5-31) U/L ALT 20 (0-31) U/L Alkaline Phosphatase 74 (39-117) U/L Troponin I High Sens < 2.7 (<3.5-17.0) ng/L Total Protein 7.7 (6.5-8.0) g/dL Albumin 4.0 (3.5-5.0) g/dL Discharge Plan Discharge Clinical Impression: Chest pain Patient Disposition: Home, Self-Care Instructions: Noncardiac Chest Pain (ED) Additional Instructions: All of your screening labs including a cardiac enzymes were normal. There were no concerning changes on your EKG. The CT scans of your brain and cervical spine were normal as well. Follow up with your primary care provider next week. Prescriptions: No Action acetaminophen [Tylenol Ex Str Rapid Release] 500 mg Tablet 500 mg PO Q6H PRN (Reason: Pain) tamoxifen 20 mg Tablet 20 mg PO DAILY Qty: 60 3RF pyridoxine (vitamin B6) 100 mg tablet 100 mg PO DAILY 90 Days Qty: 90 1RF Print Language: [place]ese
[2024-05-10 20:08] VITALS: BP 126/77; PULSE 68; RESP 16; TEMP 37.2; O2SAT 98
== END 2024-05-10 20:09 | disposition home or self-care (01) ==
PROVIDERS: Physician Assistant Medical; Emergency Provider Emergency Medicine Emergency Medical Services; PCP Internal Medicine
DX: R55 Syncope and collapse (principal); R07.89 Other chest pain; R41.82 Altered mental status, unspecified; R94.31 Abnormal electrocardiogram [ECG] [EKG]; R51.9 Headache, unspecified; M54.2 Cervicalgia; Z79.899 Other long term (current) drug therapy
CPT/HCPCS: 36415; 70450; 72125; 80048; 80076; 83735; 84484; 85025; 93005; 99284

== ENCOUNTER → 2024-05-10 13:14 | Outpatient (BNV) | payer OTHER, SELFPAY | PROVIDERS: Emergency Provider Emergency Medicine Emergency Medical Services; PCP Internal Medicine; Visit Provider Internal Medicine | DX: I42.2 Other hypertrophic cardiomyopathy (principal) | CPT/HCPCS: 93010 ==

== ENCOUNTER → 2024-05-10 13:14 | Outpatient (BNV) | payer OTHER, SELFPAY | PROVIDERS: PCP Internal Medicine; Visit Provider Radiology Diagnostic Radiology | DX: M50.322 Other cervical disc degeneration at C5-C6 level (principal); M50.323 Other cervical disc degeneration at C6-C7 level; R55 Syncope and collapse; W19.XXXA Unspecified fall, initial encounter | CPT/HCPCS: 70450; 72125 ==

== ENCOUNTER 2024-05-22 15:04 | Outpatient (AMB) | payer OTHER, SELFPAY ==
[2024-05-22 15:13] VITALS: BP 110/70; PULSE 64; O2SAT 97; BMI 27.3
--- NOTE | 2024-05-22 15:13 | MHC.PC.OV ---
Vital Signs 05/22/24 15:13 Height 5 ft 4 in Weight 159 lb 2 oz BMI 27.3 BP 110/70 Blood Pressure Location Lt brachial Position Sitting Pulse 64 Pulse Source Pulse Oximeter Pulse Oximetry (%) 97 Oxygen Delivery Method Room Air Intake Visit Reasons: [facility] [place] 05/10 F[place] Oyster Opener Required: Yes Oyster Opener Name: [email or web address] [id number] Accompanied by: Mother Allergies No Known Allergies [No Known Allergies*] Allergy (Verified 05/22/24 15:23) Medication List - Last Reconciled 05/22/24 by LIZBETH Garcia acetaminophen 500 mg PO Q6H PRN pyridoxine (vitamin B6) 100 mg PO DAILY 90 days Tobacco use date assessed: 05/22/24 Dental Screening Dental Screen Date: 05/22/24 Did you have a dental visit in the last 12 months?: Yes Did you have a dental problem in the last 6 months where you did not have access to dental care?: No Was dental information given to patient?: Patient has dentist HPI [facility] [place] 05/10 [facility] HPI Details The patient this is a 49-year-old female who is presenting for post hospital visit due to fall The patient is Somali-speaking ASL utilized 49-year-old female with a history of neurofibromatosis, left breast cancer, recurrent urinary tract infections, kidney stones, presents with chest pain. Patient states while doing dishes, she developed a sharp central pain in her chest which caused her to collapse. Her mother heard her screaming in the kitchen, the patient could not explain why she collapsed. There was no loss of consciousness, but the patient did hit her head. The incident happened yesterday. The pain was transient and has not returned. There was no preceding palpitation, shortness of breath diaphoresis nausea or vomiting. No recent cough cold symptoms fever. The patient and actually did not have a syncopal episode, she never lost consciousness. She had no preceding palpitations to suggest new arrhythmia. Given the chest discomfort, ACS was considered, screening labs including cardiac enzymes, EKG and chest x-ray were obtained. CT scan of the brain and cervical spine were ordered as well from triage, it is reassuring that the patient does not have any neurologic deficits is not actively vomiting to suggest an intracranial hemorrhage. She has no report of neck pain. All of her screening labs including a cardiac enzymes were normal. There was no concerning changes on her EKG. The CT scans of brain and cervical spine were normal as well. Patient is presenting today with complaints of a lump at the back of her head Reports that she got it after falling-small tender raised area to right occipital lobe She denies shortness of breath, heart palpitation, and dizziness She continues to endorse central chest pain, reproducible with palpation Patient reports intermittent heartburn with certain foods She denies any change in her bowel habits The patient denies ever having any syncopal episodes before Reports that she had no warnings prior to falling [facility] 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 Cellulitis Cognitive deficits Migraine headache Recurrent UTI Neurofibromatosis Breast CA Surgical History History of lumpectomy of left breast (03/23/19) History of left breast biopsy (03/01/19) History of lithotripsy (03/2018) History of excision of mass (09/2017) History of local excision of skin lesion (08/17/17) History of right breast biopsy (08/2015) History of bilateral breast biopsy (06/27/15) History of tubal ligation History of excision of lesion Family History Father History of diabetes mellitus CAD (coronary artery disease) Mother History of hypertension History of diabetes mellitus Social History Household Members: Family Housing: Apartment Alcohol intake: never Patient Tobacco Use Status: Never used Tobacco e-Cigarette/Vaping Use: Never Used Second Hand Smoke Exposure: No service: No Current occupational status: unemployed Cognitive needs: No Hearing needs: No Vision needs: Yes (Glasses) Questionnaire PHQ-9 Over the last 2 weeks, how often have you been bothered by any of the following problems? 1. Little interest or pleasure in doing things: not at all 2. Feeling down, depressed, or hopeless: not at all 3. Trouble falling or staying asleep, or sleeping too much: not at all 4. Feeling tired or having little energy: not at all 5. Poor appetite or overeating: not at all 6. Feeling bad about yourself - or that you are a failure or have let yourself or your family down: not at all 7. Trouble concentrating on things, such as reading the newspaper or watching television: not at all 8. Moving or speaking so slowly that other people could have noticed. Or the opposite - being so fidgety or restless that you have been moving around a lot more than usual: not at all 9. Thoughts that you would be better off or of hurting yourself in some way: not at all Total score: 0 Depression Screening Interpretation: Negative Depression Screening Done: Yes 26253 - PHQ-9 Billing: Yes Source: Developed by Drs. Samuel Martinez, Joleen Sam, Gil Jimenez and colleagues, with an educational lesly from [employer]. Thrive Questionnaire Date Thrive assessed: 05/22/24 I am a: Patient What is your living situation today?: I have a steady place to live Within the past 12 months, did the food you bought not last and you didn't have the money to get more?: Never true Within the past 12 months, did you worry whether your food would run out before you got money to buy more?: Never true Do you have trouble paying for medicines?: No Do you have trouble getting transportation to medical appointments?: No Do you have trouble paying your heating and electricity bill?: No Do you have trouble taking care of your child, family member or friend?: No Do you have trouble with day-to-day activities such as bathing, preparing meals, shopping, managing finances, etc.?: No Are you currently unemployed and looking for a job?: No Are you interested in more education?: No Please select the resources that you would like help with: None Currently or been in a relationship where the following occur: No concerns reported THRIVE Score: 0 AUDIT C Alcohol Use Questionnaire (AUDIT-C) 1. How often do you have a drink containing alcohol?: Monthly or less 2. How many drinks containing alcohol do you have on a typical day when you are drinking?: 1 or 2 3. How often do you have six or more drinks on one occasion?: Never Total Score: 1 Score Reviewed/Action Taken: Yes SOL-7 AMB Questionnaire SOL-7 Date SOL - 7 assessed: 05/22/24 Feeling nervous, anxious, or on edge: 0 = Not at all Not being able to stop or control worryin = Not at all Worrying too much about different things: 0 = Not at all Trouble relaxin = Not at all Being so restless that it is hard to sit still: 0 = Not at all Becoming easily annoyed or irritable: 0 = Not at all Feeling afraid as if something awful might happen: 0 = Not at all Total SOL-7 score (0-4 normal; 5-9 mild; 10-14 moderate; 15-21 severe): 0 Source: Developed by Drs. Samuel Martinez, Joleen Sam, Gil Jimenez and colleagues, with an educational lesly from [employer]. SOL-7 Assessment Billing SOL-7 Assessment Tool: SOL-7 Assessment 29194 Review of Systems Const Details: Denies chills, Denies fatigue, Denies fever(s), Denies headache(s) and Denies weakness HEENT Denies change in vision, Denies dizziness, Denies headache(s), Denies hearing loss, Denies nasal congestion, Denies sinus pain, Denies sinus pressure and Denies sore throat Card +chest pain (She continues to endorse central chest pain, reproducible with palpation), Denies lightheadedness, Denies dyspnea and Denies other (palpitations) Resp Denies cough, Denies dyspnea and Denies wheezing GI Denies abdominal pain, Denies melena, Denies hematochezia, Denies change in bowel habits, + dyspepsia with certain foods and Denies nausea Denies hematuria and Denies dysuria Musc Denies abnormal gait, Denies myalgias, Denies arthralgias, Denies numbness and Denies tingling Skin/Breast Denies rash, Denies unusual bruising and Denies wounds Neuro Denies abnormal gait, Denies dizziness, Denies headache(s), Denies memory loss, Denies numbness, Denies Sensory deficit (Neuro), Denies tingling and Denies weakness Psych Denies anxiety, Denies depression and Denies memory loss Endo Denies cold intolerance, Denies fatigue, Denies heat intolerance, Denies polydipsia and Denies polyuria Isaac/Lymph Denies easy bleeding and Denies easy bruising Aller/Immun Denies wheezing Physical exam (Primary Care) Vital Signs: Last Vital Signs Pulse 64 05/22/24 15:13 BP 110/70 05/22/24 15:13 Pulse Ox 97 05/22/24 15:13 Oxygen Delivery Method Room Air 05/22/24 15:13 BMI result Body Mass Index 27.3 Tobacco/Smoking Status: Tobacco use Status Tobacco use date assessed 05/22/24 05/22/24 15:17 Patient Tobacco Use Status Never used Tobacco 05/22/24 15:17 e-Cigarette/Vaping Use Never Used 05/22/24 15:17 PHQ-9: PHQ-9 Score PHQ-9: Total score 0 05/22/24 23:16 Depression Screening Interpretation: Negative Thrive Assessment: Date of Thrive Assessment Date Thrive assessed 05/22/24 05/22/24 15:17 Currently or been in a relationship where the following occur: No concerns reported Const Other: General: no acute distress, well developed, alert and awake Nutritional Appearance: well nourished Orientation/consciousness: patient oriented x3 HENMT Head: small tender raised area to right occipital lobe Ears: hearing grossly normal bilaterally and TM's normal bilaterally General nose exam: Normal external nose present and Normal nares present Mouth: Normal oral and palatal mucosa present and moist mucous membranes Eyes Pupils: Equal, round and reactive pupils present and Pupil accommodation reflex normal EOM: EOMs intact bilaterally Neck Neck: Yes normal visual inspection, Yes no lymphadenopathy Thyroid: Thyroid normal Resp Effort & Inspection: normal respiratory effort Auscultation: clear to auscultation bilaterally Cardio Rate: regular rate Rhythm: regular rhythm Heart sounds: S1 normal heart sound present, S2 normal heart sound present, no gallops, no murmurs and no rubs Bruits: no abdominal aortic bruits and no carotid bruits GI Palpation (GI): Abdomen is soft and nontender to palpation Auscultation: normal bowel sounds General: Yes no CVA tenderness Back/Spine/Pelvis Back: no CVA tenderness Cervical Spine: cervical ROM normal and No Cervical spine tenderness Thoracic/Lumbar Spine: thoraco-lumbar ROM normal, No pain with thoraco-lumbar ROM, No thoracic spinal tenderness and No lumbar spinal tenderness Skin General: warm and dry. Normal skin color. Normal skin turgor Lesions: no lesions Rashes: no rashes Trauma: small tender raised area to right occipital lobe Wounds: no wounds Nails: normal Neuro General: patient oriented x3, gait normal Cranial nerves: Yes Equal, round and reactive pupils present Cognition (Neuro): normal cognition Gait exam (Neuro): Normal gait present Extrem General: Yes normal to inspection, No edema and No calf tenderness Psych Appearance: grossly normal Affect: normal affect Attitude: cooperative Thought process: Normal thought process present Coding Level of Care Code Est Pt Level 4 (24831) Diagnoses Precordial pain R07.2 Chest pain type: precordial pain Syncope, unspecified syncope type R55 Syncope type: unspecified Additional Codes SOL-7 Assessment Billing - SOL-7 Assessment Tool: SOL-7 Assessment 16861 ([id number]) PHQ-9 - 97513 - PHQ-9 Billing: Yes ([id number]) Time Spent (min) 39 Assessment & Plan Assessment & Plan (1) Chest pain: Code(s): R07.9 - Chest pain, unspecified Category: Medical Qualifiers: Chest pain type: precordial pain Qualified Code(s): R07.2 - Precordial pain Plan: Similar complaints in-hospital with all negative findings We will order a three-day Holter monitor, echocardiogram and refer the patient to Cardiology for further evaluation (2) Syncopal episodes: Code(s): R55 - Syncope and collapse Category: Medical Qualifiers: Syncope type: unspecified Qualified Code(s): R55 - Syncope and collapse Plan: Same as above Plan Follow up with PCP as scheduled in July 2024 Orders: Orders ECG 3 day holter monitor 05/22/24 R07.9 - Chest pain, unspecified, R55 - Syncope and collapse CA echo transthoracic complete 05/22/24 R07.9 - Chest pain, unspecified, R55 - Syncope and collapse Referrals Cardiology Referral R07.9 - Chest pain, unspecified, R55 - Syncope and collapse
== END 2024-05-22 15:54 | disposition home or self-care (01) ==
PROVIDERS: PCP Internal Medicine
DX: R07.2 Precordial pain (principal); R55 Syncope and collapse

== ENCOUNTER → 2024-05-22 15:04 | Outpatient (BNVA) | payer OTHER, SELFPAY | PROVIDERS: PCP Internal Medicine | DX: R07.2 Precordial pain (principal); R55 Syncope and collapse | CPT/HCPCS: 96127; 99212 ==

== ENCOUNTER 2024-06-01 12:01 | Outpatient (AMB) | payer OTHER, SELFPAY ==
--- NOTE | 2024-06-01 12:12 | AM.OFFWIN_ITS ---
Intake Vital Signs 06/01/24 12:13 Weight 160 lb BP 110/74 Blood Pressure Location Rt brachial Position Sitting Pulse 98 Pulse Source Pulse Oximeter Temp 99.9 F Temp Source Oral Pulse Oximetry (%) 98 Oxygen Delivery Method Room Air Intake Visit Reasons: EP Flu symptoms Intake Note: Patient here for fever, ear pain and cough that has been present since wednesday. Patient Tobacco Use Status: Never used Tobacco Allergies No Known Allergies [No Known Allergies*] Allergy (Verified 06/01/24 12:14) Do you need a note to return to daycare/school/sports/work: No HPI HPI Comments History of Present Illness Details History - The patient is a 49-year-old female pr esenting with a cough, fever, and ear pain. - Symptoms commenced around five days ag o, with the fever peaking at 100?F. - Fatigue is noted alongside the major s ymptoms. - The patient suspects having influenza, supported by symptom presentation. - Ear pain is noted internally without v isible signs of infection and no issues with shortness of breath or sinus pressure. - A subtle wheeze was observed during simon ng examination. - No prior use of inhalers is indicated. - Coughing occurs at night, disrupting s leep. Physical Exam General: Cooperative, healthy appearing, comfortable and no acute distress Orientation/consciousness: Patient oriented x3 Limitations: No limitations Head: Normal to inspection Ears: Hearing grossly normal bilaterally, external ears normal and TM's normal bilaterally, but reports ear pain and possible fluid present Nose: Normal external nose present, Normal nares present and No nasal discharge present Face and sinus: Normal facial exam and Yes sinuses nontender Mouth: Normal oral and palatal mucosa present and moist mucous membranes Throat: Yes tonsils normal, Yes uvula midline. Posterior oropharynx erythema Eyes: Appearance normal, both eyes and all related structures Neck: Normal visual inspection Respiratory: Clear to auscultation bilaterally with a very slight wheeze noted. Normal respiratory effort, able to speak in complete sentences, Actively coughing, no respiratory distress, not tachypneic, no tripod positioning and no use of accessory muscles Cardiovascular: Regular rate and rhythm. 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 Cellulitis Cognitive deficits Migraine headache Recurrent UTI Neurofibromatosis Breast CA Surgical History History of lumpectomy of left breast (03/23/19) History of left breast biopsy (03/01/19) History of lithotripsy (03/2018) History of excision of mass (09/2017) History of local excision of skin lesion (08/17/17) History of right breast biopsy (08/2015) History of bilateral breast biopsy (06/27/15) History of tubal ligation History of excision of lesion Family History Father History of diabetes mellitus CAD (coronary artery disease) Mother History of hypertension History of diabetes mellitus Social History Household Members: Family Housing: Apartment Alcohol intake: never Patient Tobacco Use Status: Never used Tobacco e-Cigarette/Vaping Use: Never Used Second Hand Smoke Exposure: No service: No Current occupational status: unemployed Cognitive needs: No Hearing needs: No Vision needs: Yes (Glasses) Review of Systems Const All systems reviewed & are unremarkable except as noted in HPI and below Physical Exam Vital Signs: Last Vital Signs Temp 99.9 F 06/01/24 12:13 Pulse 109 H 06/01/24 12:13 BP 110/74 06/01/24 12:13 Pulse Ox 95 06/01/24 12:13 Oxygen Delivery Method Room Air 06/01/24 12:13 Assessment & Plan Assessment & Plan (1) URI, acute: Code(s): J06.9 - Acute upper respiratory infection, unspecified Plan: VSS, pt well appearing, PE unremarkable. For the symptoms consistent with influenza, a symptomatic management plan has been devised. The approach includes prescribing an inhaler for use as needed, especially during coughing episodes, and a cough suppressant to use at night for improved rest. Putg-pml-aoxlxdl medications such as Tylenol for fever management and Mucinex for potential congestion are advised. A flu, COVID, and RSV test will be conducted, with results provided to the patient in due course. An antiviral for the flu is not recommended due to the delayed interval since symptom onset. Patient was informed and verbally consented to the use of an ambient scribe for clinic note documentation during this visit Orders: Orders SARS-CoV2/FLU/RSV Today J06.9 - Acute upper respiratory infection, unspecified Medications: New benzonatate 200 mg PO .QHS PRN 10 caps 0RF cough Coding Level of Care Code Est Pt Level 3 (06211) Diagnoses URI, acute J06.9
[2024-06-01 12:13] VITALS: BP 110/74; PULSE 98; TEMP 37.7; O2SAT 98
--- OUTSIDE RECORDS SUMMARY | 2024-06-01 13:08 | XMS_ITS | Clinical Summary ---
Author Organization [employer] Address [address] [place] [address] [address] [place] [address] Care Team Providers Care Software Implementation Specialist Name Role Phone Unavailable Primary Care Provider Unavailabl e Social History Tobacco Use Types Packs/Day Years Used Date Smoking Tobacco: Never Assessed Comments Unknown Sex and Gender Information Value Date Recorded Sex Assigned at Female 02/09/2022 10:17 AM EDT Legal Sex Female 10:17 AM EDT Gender Identity Not on file Sexual Orientation Straight 02/09/2022 10 :17 AM EDT Last Filed Vital Signs Vital Sign Reading Time Taken Comments Blood Pressure 126/88 04/13/2019 12:01 AM EST Pulse 64 04/13/2019 12:01 AM EST Temperature - - Respiratory Rate - - Oxygen Saturation - - Inhaled Oxygen Concentration - - Weight 71.6 kg (157 lb 12.8 oz) 020 12:01 AM EST Height 160 cm (5' 3 ) 04/13/2019 12:01 AM EST Body Mass Index 27.95 04/13/2019 12:01 AM EST Plan of Treatment Health Maintenance Due Date Last Done Comments CT Colonography 1975 Colonoscopy 1975 Colorectal Cancer Screening 1975 Depression Screening 1975 FIT DNA/Cologuard 1975 FIT 1975 FOBT 1975 Sigmoidoscopy 1975 Alcohol/Substance Use Screening 1987 Tobacco Screening 1987 Family Planning (PISQ) 1990 Pap Smear 1996 Cervical Cancer Screening 01/14/2021 HPV/Cotest 01/14/2021 01/15/2016 Mammogram 03/23/2021 03/23/2019, 03/12, 03/23/2019, Additional history exists DTaP/Tdap/Td Vaccines (2 - Td or Tdap) 05/19/2022 05/19/2012, 06/21/2006 COVID-19 Vaccine (4 - season) 2023 03/05/2021, 07/09/2020, 06/11/2020 Influenza Vaccine (#1) 2023 0, 04/14/2019, 02/16/2018, Additional history exists Zoster Vaccines (1 of 2) 2025 RSV Patients and Patients Aged 60 years or older (1 - 1-dose 75+ series) 2050 Hepatitis B Vaccines Completed 11/06/2010, 09/04/2010, 08/06/2010, Additional history exists Hepatitis A Vaccines Aged Out 05/19/2012 No long er eligible based on patient's age to complete this topic Pneumococcal Vaccine: Pediatrics (0 to 5 Years) and At-Risk Patients (6 to 49) Years) Aged Out 01/22/2016 No longer eligible based on patient's age to complete this topic HIB Vaccines Aged Out No longer eligi ble based on patient's age to complete this topic HPV Vaccines Aged Out No longer eligi ble based on patient's age to complete this topic IPV Vaccines Aged Out No longer eligi ble based on patient's age to complete this topic Meningococcal Vaccine Aged Out No jeovanny shashi eligible based on patient's age to complete this topic RSV under 20 months Aged Out No longe r eligible based on patient's age to complete this topic Rotavirus Vaccines Aged Out No longer eligible based on patient's age to complete this topic Procedures Procedure Name Priority Date/Time Associated Diagnosis Comments MAMMOGRAM GENERIC Routine 03/23/2019 10: 45 AM EST ZZZ HISTORICAL HPV MRNA E6/E7 Routine 01/15/2016 10:50 AM EDT from Last 3 Months or Most Recently Relevant to Health Maintenance Results * MAMMO BREAST LOCAL INITI 19030 1 (03/23/2019 10:45 AM EST) Anatomical Region Laterality Modality Breast Bilateral Mammography 03/23/2019 10:4 5 AM EST Narrative 03/31/2019 8:19 AM EST Refer to the Notes tab for result details [facility] Procedure: MAMMO BREAST LOCAL INITI 22381 1 Procedure Note Provider, Chrissie, - 07/04/2022 Refer to the Notes tab for result details [facility] Procedure: MAMMO BREAST LOCAL INITI [id number] 1 us Marlene Conklin MD IMG BI PROCEDURES Final Resul t * HPV mRNA E6/E7 (01/15/2016 10:50 AM EDT) HPV mRNA E6/E7 Not Detected NOT DETECTED [facility] Comment: This assay detects E6/E7 viral messenger RNA (mRNA) from 14 high-risk HPV types (16,18,31,33,35,39,45,51, 52,56,58,59,66,68). This test was performed using the APTIMA(R) TMA HPV Assay ([employer] For additional information, please refer to http://education.InformedDNA.betaworks/faq/PHL067r5 Test Performed by [facility], [facility], [address] [place] [id number] Kaleb Madera M.D., Ph.D., Director of Laboratories , [facility] [id number] Please note: ??Effective 12/23/2015, HPV testing will be performed using [employer]'s APTIMA test which targets mRNA. Detecting mRNA instead of DNA, as in older methods, offers significant improvements in specificity. 01/15/2016 10:5 0 AM EDT us Eloisa De La Vega CNM HISTORICAL/NON ORDERABLE LABS Final Result [facility] [address] from Last 3 Months or Most Recently Relevant to Health Maintenance
--- OUTSIDE RECORDS SUMMARY | 2024-06-01 13:08 | XMS_ITS | Clinical Summary ---
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 Other personal history of disorders of urinary s ystem 01/27/2021 Renal stone 01/27/2021 Encounters Date Type Department Care Team Description 03/13/2024 Orders Only [facility] [address] [place] [address] Beau Weaver MD Renal stone; Neurofibromatosis type 1 (HCC); History of calculus of kidney from Last 3 Months Family History Medical History Relation Comments Kidney disease Child 1 son Hypertension Child 2 both sons Diabetes Father Hypertension Father Diabetes Mother Hypertension Mother Relation Status Comments Child 1 Child 2 Father Alive Mother Alive Social History Tobacco Use Types Packs/Day Years Used Date Smoking Tobacco: Never Alcohol Use Standard Drinks/Week Comments No 0 (1 standard drink = 0.6 oz pur e alcohol) Comments Unknown Sex and Gender Information Value Date Recorded Sex Assigned at Not on file Legal Sex Female 5:07 PM EST Gender Identity Not on file Sexual Orientation Not on file Last Filed Vital Signs Vital Sign Reading Time Taken Comments Blood Pressure 110/70 02/28/2024 2:32 PM EST Pulse 63 02/28/2024 2:32 PM EST Temperature - - Respiratory Rate - - Oxygen Saturation 98% 02/28/2024 2:32 PM EST Inhaled Oxygen Concentration - - Weight 73.7 kg (162 lb 6.4 oz) 02/28/2024 2:32 P M EST Height 157.5 cm (5' 2 ) 01/09/2019 12:00 PM EDT Body Mass Index 29.7 01/09/2019 12:00 PM EDT Plan of Treatment Upcoming Encounters Date Type Department Care Team (Late st Contact Info) Description 03/05/2025 1:45 PM EST Office Visit [facility] [address] [place] [address] [place] [phone] Beau Weaver MD [address] [facility] [address] [place] [address] Health Maintenance Due Date Last Done Comments Pneumococcal Vaccine: Pediat rics (0 to 5 Years) and At-Risk Patients (6 to 64 Years) (1 of 2 - PCV) 1981 Hepatitis B Vaccine (1 of 3 - 19+ 3-dose series) 04/19 Influenza Vaccine (#1) 2023 Colorectal Cancer Screening: Annual FOBT 2024 Colorectal Cancer Screening: Colonoscopy 2024 Colorectal Cancer Screening: Sigmoidoscopy 2024 Insurance [facility] ([id number]) [facility] ([id number]) Care Teams Reaming Machine Tender Relationship Specialty Start Date End Date Rhiannon Morrison MD [address] [place] PCP - General Internal Medicine 02/28/24
== END 2024-06-01 12:59 | disposition home or self-care (01) ==
PROVIDERS: PCP Internal Medicine; Visit Provider Physician Assistant
DX: J06.9 Acute upper respiratory infection, unspecified (principal)

== ENCOUNTER 2024-06-01 12:01 | Outpatient (REF) | payer OTHER, SELFPAY ==
[2024-06-01 17:39] LABS: Influenza A PCR POSITIVE (Negative); Influenza B PCR NEGATIVE (Negative); Resp Syncy Virus RNA Qual PCR NEGATIVE (Negative); SARS COV2 PCR INHOUSE NEGATIVE (Negative)
== END 2024-06-01 12:02 | disposition home or self-care (01) ==
LOC: HO.LAB 12:01
PROVIDERS: PCP Internal Medicine; Visit Provider Physician Assistant
DX: J06.9 Acute upper respiratory infection, unspecified (principal)
CPT/HCPCS: 0241U; 99212

== ENCOUNTER 2024-06-04 15:13 | Emergency (ER) | payer OTHER, SELFPAY ==
--- NOTE | ~2024-06-04 | XR_ITS ---
CLINICAL HISTORY: cough Chest Radiographs, 2 views Comparison: None Findings: No cardiomegaly. Normal mediastinal contours. No pneumothorax. No opacity. No pleural effusion. Normal upper abdomen. No acute fracture. Impression: No acute findings. This document has been electronically signed by: Joceline Salcido MD on 06/04/2024 16:39:41
[2024-06-04 15:33] VITALS: BP 172/76; PULSE 86; RESP 18; TEMP 36.9; O2SAT 99; BMI 27.4
--- NOTE | 2024-06-04 15:33 | ED.URI ---
HPI - URI/Sore Throat General Chief Complaint: General Medical Stated Complaint: ? flu Time Seen by Provider: 06/04/24 16:28 Source: patient Mode of arrival: ambulatory Limitations: no limitations History of Present Illness ED Provider: josef lux NP HPI Narrative: Patient is a 49-year-old female who presents emergency department for evaluation Reports flu-like symptoms for 1 week, diagnosed with flu 3 days ago. Denies being started on Tamiflu. States that she has been staying hydrated, is not eating solids because she does not have an appetite or taste bad, she continues to have a nonproductive cough, feels fatigued and having fevers. Denies headache, dizziness, neck pain, neck stiffness, chest pain, shortness of breath, difficulty breathing, sore throat, nausea, vomiting, abdominal pain, numbness or tingling of the extremities, genitourinary symptoms. Related Data Home Medications ?Medication ?Instructions ?Recorded ?Confirmed acetaminophen 500 mg tablet 500 mg PO Q6H PRN Pain 04/23/21 05/22/24 Previous Rx's ?Medication ?Instructions ?Recorded pyridoxine (vitamin B6) 100 mg 100 mg PO DAILY 90 days #90 tabs 10/19/22 tablet benzonatate 200 mg capsule 200 mg PO .QHS PRN cough #10 caps 06/01/24 albuterol sulfate 90 mcg/actuation 2 puff inhalation Q6H PRN 06/02/24 aerosol inhaler shortness of breath or wheezing or cough #8.5 grams amoxicillin 500 mg capsule 1,000 mg (2 x 500 mg) PO TID 5 06/04/24 days #30 caps Allergies Allergy/AdvReac Type Severity Reaction Status Date / Time No Known Allergies Allergy Verified 06/04/24 15:34 [No Known Allergies*] Review of Systems Review of Systems: Yes all other systems are reviewed and are negative PMFSH Past Medical History Attestation statement: The following information was validated with the patient. 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 Cellulitis Cognitive deficits Migraine headache Recurrent UTI Neurofibromatosis Breast CA Surgical History History of lumpectomy of left breast (03/23/19) History of left breast biopsy (03/01/19) History of lithotripsy (03/2018) History of excision of mass (09/2017) History of local excision of skin lesion (08/17/17) History of right breast biopsy (08/2015) History of bilateral breast biopsy (06/27/15) History of tubal ligation History of excision of lesion Family History Family History Father History of diabetes mellitus CAD (coronary artery disease) Mother History of hypertension History of diabetes mellitus Social History Social History Household Members: Family Housing: Apartment Alcohol intake: never Patient Tobacco Use Status: Never used Tobacco e-Cigarette/Vaping Use: Never Used Second Hand Smoke Exposure: No Advance Directives: No Advance Directives Information Provided: No Do you have a plan to hurt others: No Plan service: No Current occupational status: unemployed Cognitive needs: No Hearing needs: No Vision needs: Yes (Glasses) Physical Exam Vital Signs: Vital Signs: Last Vital Signs Temp 98.5 F 06/04/24 15:33 Pulse 86 06/04/24 15:33 Resp 18 06/04/24 15:33 BP 172/76 H 06/04/24 15:33 Pulse Ox 99 06/04/24 15:33 O2 Del Method Room Air 06/04/24 15:33 BMI result Body Mass Index 27.4 Appearance: Alert.?Oriented to person, place and time. No acute distress.?Normal affect. Eyes: Pupils equal, round and reactive to light.? ENT: TM normal bilaterally. Pharynx normal.?? Neck: Normal inspection.? Neck supple.??No cervical adenopathy CVS: Heart sounds normal. Normal heart rate and rhythm.? Pulses normal.?? Respiratory: No respiratory distress.? Lung sounds clear to auscultation bilaterally?? Abdomen: Soft and non-tender. Normoactive bowel sounds. Skin: Skin warm and dry.? Normal skin color.? ? Extremities: No lower extremity edema.? Neuro: Moves all extremities spontaneously. Sensation intact bilaterally. No motor deficits. Ambulates with normal steady gait. Medications Administered Discontinued Medications Generic Name Dose Route Start Last Admin Trade Name Freq PRN Reason Stop Dose Admin Amoxicillin 1,000 mg 06/04/24 16:54 06/04/24 17:04 Amoxicillin 500 Mg Capsule PO 06/04/24 16:55 1,000 mg ONCE ONE Administration Medical Decision Making Medical Decision Making [facility] Narrative: Patient is a 49-year-old male presenting for evaluation of viral type symptoms in the setting of recent influenza infection. Here with mother and son with similar symptoms. Patient feels feel strongly that there must be some alternative reason for her symptoms. She do not believe that he would still be ill with flu symptoms at this time. I discussed that this would be expected during this stage of illness, and she should hopefully begin to feel better within the next few days. Her abdominal examination is benign. Advised that despite her lack of appetite, it is very important eat small frequent meals throughout the day so that she may regain his energy and be sure that she is staying well hydrated. Repeat viral serologies were obtained to exclude alternative viral illness in addition to CXR to exclude consolidation or infiltrate which shows no evidence of pneumonia, however son and grandmother both with findings of atypical pneumonia. Well-appearing, nontoxic, afebrile, no tachycardia or tachypnea/hypoxia. Speaking clear full sentences, ambulatory with steady gait. Discussed conservative treatment including rest, hydration, Tylenol/ibuprofen as needed for fever and body aches, saline nasal spray, humidifier, lhuj-rwj-kckalop cold medication. Advised to follow-up with primary care provider as needed, discussed reasons to return back to the emergency department. All questions were answered. Patient discharged home in stable condition. Differential Diagnosis Differential Diagnoses: The differential diagnosis associated with the presentation includes ( See narrative above) Admission/Observation Consideration of admission/observation: Escalation of care including admission/observation considered ( see narrative above) Lab Data [facility] Lab Attestation statement: I reviewed the patient's lab results. ( see narrative above) Labs: Lab Results 06/04/24 Range/Units 16:16 Influenza Type A (PCR) POSITIVE A (Negative) Influenza Type B (PCR) NEGATIVE (Negative) RSV RNA Qual (PCR) NEGATIVE (Negative) SARS-CoV-2 RNA (RT-PCR) NEGATIVE (Negative) Independent Interpretation I performed an independent interpretation of an: Plain X-Ray (See narrative above) Radiology Impression Discussion of test interpretation with radiology: I have reviewed the radiologist's reading. Radiologist Impression: Chest Radiographs, 2 views Comparison: None Findings: No cardiomegaly. Normal mediastinal contours. No pneumothorax. No opacity. No pleural effusion. Normal upper abdomen. No acute fracture. Impression: No acute findings. External Record Review External record reviewed: Outpatient record Prescription Management I considered prescription management with: Pain Medication ( acetaminophen/ibuprofen) and Antibiotic Discharge Plan Discharge Clinical Impression: Influenza Patient Disposition: Home, Self-Care Instructions: Influenza (ED) Additional Instructions: Your chest x-ray does not show evidence of pneumonia at this time, you have been in close contact with your family member who has shown evidence of pneumonia, therefore I am sending a prescription for antibiotic to your pharmacy please complete the entire course not skipped any doses or stop taking early even if you begin to feel better Be sure to rest, stay well hydrated drinking plenty of fluids, eat small frequent meals. Tylenol/ibuprofen can be used as needed for fever/pain. Iawa-rji-tdnjxdb cold medications may be helpful as well for symptoms. Saline nasal spray, humidifier may be helpful for nasal congestion. You may return to the emergency department with any new or worsening symptoms or concerns. Follow-up with your primary care provider as needed. Should remain out of school/ work until symptoms have resolved and have been without a fever for 24 hours without the use of Tylenol or ibuprofen. Prescriptions: New amoxicillin 500 mg capsule 1,000 mg PO TID 5 Days Qty: 30 0RF No Action albuterol sulfate 90 mcg/actuation HFA aerosol inhaler 2 puff inhalation Q6H PRN (Reason: shortness of breath or wheezing or cough) Qty: 8.5 0RF acetaminophen [Tylenol Ex Str Rapid Release] 500 mg Tablet 500 mg PO Q6H PRN (Reason: Pain) benzonatate 200 mg capsule 200 mg PO .QHS PRN (Reason: cough) Qty: 10 0RF pyridoxine (vitamin B6) 100 mg tablet 100 mg PO DAILY 90 Days Qty: 90 1RF Referrals: Rhiannon Morrison MD [Primary Care Provider] - Print Language: Khmer
--- OUTSIDE RECORDS SUMMARY | 2024-06-04 16:16 | XMS_ITS | Clinical Summary ---
Author Organization [employer] Address [address] [place] [address] [address] [place] [address] Care Team Providers Care Harmonica Maker Name Role Phone Unavailable Primary Care Provider [...] Maintenance Results * MAMMO BREAST LOCAL INITI [id number] 1 (03/23/2019 10:45 AM EST) Anatomical Region Laterality Modality Breast Bilateral Mammography 03/23/2019 10:4 5 AM EST Narrative 03/31/2019 8:19 AM EST Refer to the Notes tab for result details [facility] Procedure: MAMMO BREAST LOCAL INITI [id number] 1 Procedure Note Provider, Chrissie, - 07/04/2022 Refer to the Notes tab for result details [facility] Procedure: MAMMO BREAST LOCAL INITI [id number] 1 us Marlene Conklin MD IMG BI PROCEDURES Final Resul t * HPV mRNA E6/E7 (01/15/2016 10:50 AM EDT) HPV mRNA E6/E7 Not Detected NOT DETECTED [facility] Comment: This assay detects E6/E7 viral messenger RNA (mRNA) from 14 high-risk HPV types (16,18,31,33,35,39,45,51, 52,56,58,59,66,68). This test was performed using the APTIMA(R) TMA HPV Assay ([employer] For additional information, please refer to http://education.Qudini.Serious Energy/faq/VWY105p4 Test Performed by [facility], [email or web address], [address] [place] [id number] Kaleb Madera M.D., Ph.D., Director of Laboratories , [facility] [id number] Please note: ??Effective 12/23/2015, HPV testing will be performed using [employer]'s APTIMA test which targets mRNA. Detecting mRNA instead of DNA, as in older methods, offers significant improvements in specificity. 01/15/2016 10:5 0 AM EDT us Eloisa De La Vega CNM HISTORICAL/NON ORDERABLE LABS Final Result [facility] [address] from Last 3 Months or Most Recently Relevant to Health Maintenance
[2024-06-04] MEDS: Amoxicillin 500 MG CAPSULE 1000 MG PO (17:04)
[2024-06-04 17:23] LABS: Influenza A PCR POSITIVE (Negative); Influenza B PCR NEGATIVE (Negative); Resp Syncy Virus RNA Qual PCR NEGATIVE (Negative); SARS COV2 PCR INHOUSE NEGATIVE (Negative)
[2024-06-04 17:30] VITALS: BP 172/76; PULSE 86; RESP 18; TEMP 36.9; O2SAT 99
== END 2024-06-04 17:30 | disposition home or self-care (01) ==
PROVIDERS: Nurse Practitioner Family; Emergency Provider Emergency Medicine Emergency Medical Services; PCP Internal Medicine
DX: J10.1 Influenza due to other identified influenza virus with other respiratory manifestations (principal); R05.9 Cough, unspecified; Z03.818 Encounter for observation for suspected exposure to other biological agents ruled out
CPT/HCPCS: 0241U; 71046; 99282; 99283

== ENCOUNTER → 2024-06-04 15:39 | Outpatient (BNV) | payer OTHER, SELFPAY | PROVIDERS: Emergency Provider Emergency Medicine Emergency Medical Services; PCP Internal Medicine; Visit Provider Radiology Diagnostic Radiology | DX: R05.9 Cough, unspecified (principal) | CPT/HCPCS: 71046 ==

== ENCOUNTER → 2024-06-14 09:32 | Outpatient (REF) | payer OTHER, SELFPAY ==
--- NOTE | 2024-06-14 09:37 | CA_ITS ---
Transthoracic Echocardiogram Patient (Last, First, Middle): Xiomy Shukla, Gender: Female Date of : 1975 Age: 49 Procedure Date: 06/14/2024 Procedure Type: Transthoracic Echocardiogram Location: OP Height: 162.56 cm Weight: 72.01 kg BSA: 1.77 m2 Heart Rate: 63 bpm BP: 128 / 80 mmHg Top Stitcher: TO Referring MD: Bay NIEVES Shafting Worker: Theron Higuera MD Symptoms: R55 - Syncope and collapse Study Quality: Adequate ECG Rhythm: Sinus Conclusions: - 1. Normal LV ejection fraction of 60-65% with impaired relaxation filling pattern 2. Normal cardiac valvular Dopplers 3. Normal RV systolic pressure 4. No pericardial effusion Findings Left Ventricle Normal left ventricular size, thickness, and systolic function. The visually estimated ejection fraction is between 60-65%. Spectral Doppler is indicative of an impaired relaxation filling pattern. E/E prime ratio is <8, consistent with normal filling pressures. Evidence suggests grade I (mild) diastolic dysfunction. Right Ventricle Normal right ventricular cavity size and systolic function. Atria The left atrium is mildly dilated. Interatrial shunt cannot be excluded. The right atrium is normal in size. Aortic Valve Normal aortic valve structure and function. There is no aortic valve stenosis. There is no aortic valve regurgitation. Mitral Valve Normal mitral valve structure and function. There is trace mitral valve regurgitation. There is no mitral valve stenosis. Pulmonic Valve The pulmonic valve is likely normal. Tricuspid Valve Normal tricuspid valve structure. There is trace tricuspid valve regurgitation. The right ventricular systolic pressure is 23 mmHg. Normal right atrial pressure. There is no evidence of pulmonary hypertension. Great Vessels All visible segments of the aorta are normal in size. The pulmonary artery was not well visualized. Venous The inferior vena cava is normal in size and collapses greater than 50% with inspiration. Pericardium/Pleural There is no evidence of pericardial effusion. Prior Study Comparison No prior study available for comparison. Measurements 2D Linear Measurements IVSd: 0.70 0.6-0.9/0.6-1.0 cm LVIDd: 4.66 3.9-5.3/4.2-5.9 cm LVIDd Index: 2.63 2.4-3.2/2.2-3.1 cm/m2 LVIDs: 3.00 2.0-3.6 cm LVPWd: 0.71 0.7-1.1 cm LA Diam: 3.70 2.7-3.8/3.0-4.0 cm LAIDs Index: 2.09 1.5-2.3 cm/m2 LV Mass: 127.12 67-162/88-224 g LV Mass Index: 71.82 43-95/49-115 g/m2 LVOT Diam: 2.00 3.0+(-)1.3 cm 2D Systolic Function EF 4C: 60.00 >55% EF 2C: 63.80 >55% EF BiP: 62.00 >55% Mitral Valve MV Pk E: 0.64 MV PK A: 0.59 MV Decel Time: 236.00 E/A: 1.10 E'Lateral: 9.36 E'Medial: 9.25 E/E' Med: 6.90 E/E' Lat: 6.80 PHT: 69.00 MVA PHT: 3.19 Decel Curry: 2.71 Aortic Valve AoV Pk Jose: 1.65 AoV Mn Jose: 1.04 AoV VTI: 0.31 AoV Pk Grad: 11.00 Aov Mn Grad: 5.00 SIMON Cont.VTI: 2.57 LVOT LVOT Pk Jose: 1.15 LVOT Mn Jose: 0.75 LVOT VTI: 0.26 LVOT Pk Grad: 5.00 LVOT Mn Grad: 3.00 LVOT Diam: 2.00 LVOT Area: 3.14 Diastolic Function MV Pk E: 0.64 MV Pk A: 0.59 E/A: 1.10 E'Medial: 9.25 E/E' Med: 6.90 E' Laterial: 9.36 E/E' Lat: 6.80 Right Ventricle TAPSE (mm): 23.40 TVS' Jose: 12.70 Tricuspid Valve TR Pk Jose: 2.24 TR Pk Grad: 20.00 RA Press: 3.00 RVSP: 23.00 Great Vessels Aorta Sinus of Valsalva: 2.58 2.0-3.5 cm Ao Asc: 2.70 2.1-3.4 cm Updated in Other Vendor System with Status of Final Theron Higuera MD electronically signed on 06/15/2024 12:22:21 PM with status of Final
--- OUTSIDE RECORDS SUMMARY | 2024-06-14 10:51 | XMS_ITS | Clinical Summary ---
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 Other personal history of disorders of urinary s ystem 01/27/2021 Renal stone 01/27/2021 Family History Medical History Relation Comments Kidney [...] [facility] [address] [place], [place] [address] Beau Weaver MD [address] [facility] [address] [place] [id number] Health Maintenance Due Date Last Done Comments Pneumococcal Vaccine: Pediat rics (0 to 5 Years) and At-Risk Patients (6 to 64 Years) (1 of 2 - PCV) 1981 Hepatitis B Vaccine (1 of 3 - 19+ 3-dose series) 04/19 Influenza Vaccine (#1) 2023 Colorectal Cancer Screening: Annual FOBT 2024 Colorectal Cancer Screening: Colonoscopy 2024 Colorectal Cancer Screening: Sigmoidoscopy 2024 Insurance [facility] MCR ([id number]) [facility] ([id number]) BRIJESH [place]YLIE [phone] Care Teams Chief Information Security Officer Relationship Specialty Start Date End Date Rhiannon Morrison MD [address] [place], [place] PCP - General Internal Medicine 02/28/24
== END ==
LOC: HO.CARD 09:32
PROVIDERS: PCP Internal Medicine
DX: R07.9 Chest pain, unspecified (principal); R55 Syncope and collapse
CPT/HCPCS: 93242; 93306

== ENCOUNTER → 2024-06-14 09:37 | Outpatient (BNV) | payer OTHER, SELFPAY | PROVIDERS: PCP Internal Medicine; Visit Provider Internal Medicine Cardiovascular Disease | DX: I47.10 Supraventricular tachycardia, unspecified (principal) | CPT/HCPCS: 93244 ==

== ENCOUNTER 2024-06-16 10:50 | Outpatient (AMB) | payer OTHER, SELFPAY ==
[2024-06-16 11:10] VITALS: BP 142/80; PULSE 89; TEMP 36.7; O2SAT 97; BMI 27.5
--- NOTE | 2024-06-16 11:10 | AM.OFFWIN_ITS ---
Intake Vital Signs 06/16/24 11:10 Height 5 ft 3 in Weight 155 lb BMI 27.5 BP 142/80 H Blood Pressure Location Lt brachial Position Sitting Pulse 89 Pulse Source Pulse Oximeter Temp 98.0 F Temp Source Oral Pulse Oximetry (%) 97 Intake Visit Reasons: EP Flu? Cough Patient Tobacco Use Status: Never used Tobacco Allergies No Known Allergies [No Known Allergies*] Allergy (Verified 06/16/24 11:17) Do you need a note to return to daycare/school/sports/work: No HPI EP Flu? Cough HPI Details 49-year-old female patient presents to [facility] walk-in clinic today with ongoing cough status post flu/ pneumonia 2 weeks ago. She presented to the walk-in clinic on 06/01 for viral upper respiratory symptoms. She tested positive for the flu. She subsequently went to the emergency department on 06/04 and was started on amoxicillin x5 days. She has since completed this course, however reports persistent dry cough that she can not get rid of. She denies any fever or chills. Denies any GI symptoms. Denies any shortness of breath. She does not wish to have anymore antibiotics as they caused GI upset. 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 Cellulitis Cognitive deficits Migraine headache Recurrent UTI Neurofibromatosis Breast CA Surgical History History of lumpectomy of left breast (03/23/19) History of left breast biopsy (03/01/19) History of lithotripsy (03/2018) History of excision of mass (09/2017) History of local excision of skin lesion (08/17/17) History of right breast biopsy (08/2015) History of bilateral breast biopsy (06/27/15) History of tubal ligation History of excision of lesion Family History Father History of diabetes mellitus CAD (coronary artery disease) Mother History of hypertension History of diabetes mellitus Social History Household Members: Family Housing: Apartment Alcohol intake: never Patient Tobacco Use Status: Never used Tobacco e-Cigarette/Vaping Use: Never Used Second Hand Smoke Exposure: No service: No Current occupational status: unemployed Cognitive needs: No Hearing needs: No Vision needs: Yes (Glasses) Review of Systems Const All systems reviewed & are unremarkable except as noted in HPI and below Physical Exam Vital Signs: Last Vital Signs Temp 98.0 F 06/16/24 11:10 Pulse 89 06/16/24 11:10 BP 142/80 H 06/16/24 11:10 Pulse Ox 97 06/16/24 11:10 BMI result Body Mass Index 27.5 Const General: cooperative and no acute distress HEENT Head: Yes normal to inspection Ears: hearing grossly normal bilaterally General nose exam: Normal external nose present Throat: Yes posterior oropharynx normal Neck Neck: Yes no lymphadenopathy Resp Effort & Inspection: normal respiratory effort and Actively coughing Quality: dry Auscultation: clear to auscultation bilaterally Cardio Rate: regular rate Rhythm: regular rhythm Skin General skin exam: no rashes or lesions noted Extrem General: Yes capillary refill normal and Yes no clubbing, cyanosis or edema Psych Appearance: grossly normal Assessment & Plan Assessment & Plan (1) Persistent dry cough: Code(s): R05.3 - Chronic cough Plan: Patient has persistent dry cough, which is impacting her activities and sleep. Her LS are clear and physical assessment is otherwise unremarkable. I am going to start her on a 3 day course of prednisone. We reviewed indications, use, possible side effects of this. I am also going to refill her benzonatate, which we reviewed use of. If she does not improve with time and treatment, or if she develops any recurrence of fever, shortness of breath etcetera, she should go to the emergency department for evaluation. She verbalizes understanding and agrees to plan. Medications: New prednisone Take 1 tablet daily for 3 days 20 mg PO DAILY 3 days 3 tabs 0RF benzonatate 100 mg PO BID 7 days PRN 14 caps 0RF cough R05.9 - Cough, unspecified Coding Level of Care Code Est Pt Level 4 (00292) Diagnoses Persistent dry cough R05.3
--- OUTSIDE RECORDS SUMMARY | 2024-06-16 12:22 | XMS_ITS | Clinical Summary ---
Author Organization [facility] Address [address] [place] [address] Phone Care Team Providers Care Ticket Puller Name Role Phone Rhiannon Morrison MD Primary Care Provider [phone] Allergies No known active allergies Medications TAMOXIFEN [...] Visit [facility] [address] [place], [place] [address] Beau Weaver MD [address] [facility] [address] [place] [phone] Health Maintenance Due Date Last Done Comments Pneumococcal Vaccine: Pediat rics (0 to 5 Years) and At-Risk Patients (6 to 64 Years) (1 of 2 - PCV) 1981 Hepatitis B Vaccine (1 of 3 - 19+ 3-dose series) 04/19 Influenza Vaccine (#1) 2023 Colorectal Cancer Screening: Annual FOBT 2024 Colorectal Cancer Screening: Colonoscopy 2024 Colorectal Cancer Screening: Sigmoidoscopy 2024 Insurance [facility] MCR ([id number]) [facility] ([id number]) [place] [phone] Care Teams Ticket Puller Relationship Specialty Start Date End Date Rhiannon Morrison MD [address] [place], [place] PCP - General Internal Medicine 02/28/24
== END 2024-06-16 13:04 | disposition home or self-care (01) ==
PROVIDERS: PCP Internal Medicine; Visit Provider Nurse Practitioner Family
DX: R05.3 Chronic cough (principal)

== ENCOUNTER → 2024-06-16 10:50 | Outpatient (BNVA) | payer OTHER, SELFPAY | PROVIDERS: PCP Internal Medicine | DX: R05.3 Chronic cough (principal) | CPT/HCPCS: 99212 ==

== ENCOUNTER 2024-07-18 13:42 | Outpatient (AMB) | payer OTHER, SELFPAY ==
--- NOTE | 2024-07-18 13:55 | MHC.PC.OV ---
Vital Signs 07/18/24 13:57 Height 5 ft 3 in Weight 155 lb BMI 27.5 BP 112/80 Blood Pressure Location Lt brachial Position Sitting Intake Visit Reasons: PE Intake Note: Patient here for a physical exam Crown Ironer Operator Required: Yes Crown Ironer Operator Language: Lumber Loader Name: Rhiannon Bloom MD Information Interpreted: non-clinical & clinical Accompanied by: Mother Allergies No Known Allergies [No Known Allergies*] Allergy (Verified 07/18/24 14:09) Medication List - Last Reconciled 07/18/24 by Rhiannon Bloom MD albuterol sulfate 90 mcg/actuation 2 puffs inhalation Q6H PRN Tobacco use date assessed: 05/22/24 Dental Screening Dental Screen Date: 05/22/24 HPI HPI Comments History of Present Illness Details The patient is a 49-year-old female with neurofibromatosis presenting for physical exam. She carries a diagnosis of neurofibromatosis but is not presently under neurological evaluation for this condition due to a lapse in scheduled appointments. Several months back, the patient suffered a fall with subsequent emergency assessment revealing cervical arthritis, but no fractures were noted. Cardiac evaluation shows she has impaired relaxation with an echocardiogram demonstrating an ejection fraction between 60 and 65%, which she is advised to monitor annually with her naphtha washing system operator. Recent cardiac monitoring using a two-day Holter device indicated a normal sinus rhythm. The patient's tetanus vaccination is due for an update since her last immunization was in 2012. Mammographic screening has been conducted. The patient discusses colorectal cancer screening tests, particularly considering Cologuard for its non-invasive nature. Her nutritional intake supports her in maintaining weight, and her diet commonly includes soups and yogurt, with two main meals daily. - Tetanus vaccination: Last administered in 2012; needs update. - Mammography: Conducted; recent status undisclosed. - Colorectal cancer screening: Discussed Cologuard as a potential non-invasive option. 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 Cellulitis Cognitive deficits Migraine headache Recurrent UTI Neurofibromatosis Breast CA Surgical History History of lumpectomy of left breast (03/23/19) History of left breast biopsy (03/01/19) History of lithotripsy (03/2018) History of excision of mass (09/2017) History of local excision of skin lesion (08/17/17) History of right breast biopsy (08/2015) History of bilateral breast biopsy (06/27/15) History of tubal ligation History of excision of lesion Family History Father History of diabetes mellitus CAD (coronary artery disease) Mother History of hypertension History of diabetes mellitus Social History Household Members: Family Housing: Apartment Alcohol intake: never Patient Tobacco Use Status: Never used Tobacco e-Cigarette/Vaping Use: Never Used Second Hand Smoke Exposure: No service: No Current occupational status: unemployed Cognitive needs: No Hearing needs: No Vision needs: Yes (Glasses) Questionnaire Thrive Questionnaire Date Thrive assessed: 05/22/24 SOL-7 AMB Questionnaire SOL-7 Date SOL - 7 assessed: 05/22/24 Source: Developed by Drs. Samuel Martinez, Joleen Sam, Gil Jimenez and colleagues, with an educational lesly from [employer]. Review of Systems Const All systems reviewed & are unremarkable except as noted in HPI and below Card Denies chest pain at rest, Denies chest pain with activity, Denies edema, Denies irregular heart rhythm, Denies claudication, Denies dyspnea, Denies dyspnea on exertion, Denies orthopnea, Denies paroxysmal nocturnal dyspnea and Denies slow heart rate Resp Denies cough, Denies dyspnea and Denies dyspnea on exertion GI Denies abdominal pain, Denies change in bowel habits, Denies excessive flatus, Denies nausea and Denies vomiting Denies urinary incontinence, Denies urinary hesitancy and Denies urinary urgency Musc Denies abnormal gait, Denies atrophy, Denies deformity and Denies limited range of motion Skin/Breast Denies bleeding lesions, Denies changing lesions and Denies rash Neuro Denies abnormal gait, Denies behavioral changes and Denies lack of coordination Psych Denies behavioral changes Physical exam (Primary Care) Vital Signs: Last Vital Signs BP 112/80 07/18/24 13:57 BMI result Body Mass Index 27.5 Tobacco/Smoking Status: Tobacco use Status Tobacco use date assessed 05/22/24 07/18/24 13:57 Patient Tobacco Use Status Never used Tobacco 07/18/24 13:57 e-Cigarette/Vaping Use Never Used 07/18/24 13:57 Thrive Assessment: Date of Thrive Assessment Date Thrive assessed 05/22/24 07/18/24 13:57 [facility] Head: Yes normal to inspection, Yes normocephalic and Yes atraumatic Ears: external ears normal Eyes General: appearance normal, both eyes and all related structures Eyelids: Yes eyelids normal Conjunctivae: conjunctivae normal Neck Neck: Yes normal visual inspection and Yes supple Resp Effort & Inspection: normal respiratory effort Auscultation: clear to auscultation bilaterally Cardio Jugular venous distension: no JVD Rate: regular rate Rhythm: regular rhythm Heart sounds: S1 normal heart sound present and S2 normal heart sound present GI Inspection: Yes normal to inspection Palpation (GI): Soft to palpation and nontender Auscultation: normal bowel sounds Skin General skin exam: no rashes or lesions noted Neuro General: no focal motor deficits Extrem General: Yes full ROM Psych Appearance: grossly normal Immunizations Boostrix Tdap 2.5 Lf unit-8 mcg-5 Lf/0.5 mL intramuscular syringe Performing Provider: Rhiannon Bloom MD [facility] Administered by: ANNALISA Reagan on 07/18/24 14:26 Dose Route Admin Location Dispensed Lot Number Expiration Date NDC Rotor Casting Machine Operator 0.5 mL IM Left Deltoid 0.5 mL [id number] 09/23/26 [id number] [facility] VIS Given Date VIS Provided VIS Publication Date 07/18/24 Single Vaccine 24 Eligibility Eligibility Date Funding Source Not [facility] Eligible 07/18/24 Private Coding Level of Care Code Est Pt Prev Care 40-64y(55243) Diagnoses Physical exam Z00.00 Neurofibromatosis Q85.00 Time Spent (min) 30 Assessment & Plan Assessment & Plan (1) Physical exam: Code(s): Z00.00 - Encounter for general adult medical examination without abnormal findings Category: Medical (2) Neurofibromatosis: Code(s): Q85.00 - Neurofibromatosis, unspecified Category: Medical Plan The patient will receive an updated tetanus vaccine as a measure for continued protection. Management of her cervical arthritis includes monitoring symptom progression and ensuring that her current state remains stable. Moreover, maintaining regular naphtha washing system operator consultations is critical considering her multitude of heart-related symptoms; in fact, echo results show impaired relaxation which necessitates vigilant follow-up. Heart rhythm is currently normal based on Holter monitoring. Discussion regarding colorectal cancer screening preferences led to patient education about the Cologuard test's non-invasive properties, and consideration for this method of screening. Mammography screenings are up to date. Nutritional and lifestyle habits were also reviewed, which support her weight management goals. Patient was informed and verbally consented to the use of an ambient scribe for clinic note documentation during this visit. We discussed the importance of maintaining wellness checks and vaccinations such as the tetanus update. I reviewed her recent tests for cardiac function, reinforcing that while her heart has impaired relaxation, current monitoring suffices given her normal sinus rhythm observed in periodic Holter assessments. I explained the need for consistent cardiac evaluation to identify any changes early. Given that she completed a mammogram, we turned our focus to educating her on colorectal screening methods. Cologuard was recommended for her hesitancy towards colonoscopy; I emphasized its ease of use and effectiveness. Her dietary habits play a crucial role in weight maintenance, thus were lauded as a significant aspect of her health maintenance strategy. Orders: Orders TDaP Immunization Today Z23 - Encounter for immunization Comprehensive [place]. Panel Fast Today Z00.00 - Encounter for general adult medical examination without abnormal findings Lipid Panel Today E78.5 - Hyperlipidemia, unspecified, Z00.00 - Encounter for general adult medical examination without abnormal findings Referrals Cologuard Test Z12.11 - Encounter for screening for malignant neoplasm of colon, Z12.12 - Encounter for screening for malignant neoplasm of rectum Patient Instructions: - Receive the Tdap vaccine as discussed to update your tetanus protection. - Continue adherence to annual cardiology evaluations; ensure any irregularities with heart health are promptly assessed. - Look into completing a Cologuard test for colorectal cancer screening as an easy, home-based alternative. - Engage regularly in monitoring your cervical arthritis and report any new symptoms. - Sustain healthy nutritional habits and monitor your weight as part of ongoing health maintenance.
[2024-07-18 13:57] VITALS: BP 112/80; BMI 27.5
--- OUTSIDE RECORDS SUMMARY | 2024-07-18 16:41 | XMS_ITS | Clinical Summary ---
Author Organization [facility] Address [address] [place] [address] Phone Care Team Providers Care Ortho Nurse Name Role Phone Rhiannon Morrison MD Primary Care Provider [phone] Allergies No known active allergies Medications TAMOXIFEN [...] Visit [facility] [address] [place] [address] Beau Weaver MD [address] [facility] [address] [place] [phone] Health Maintenance Due Date Last Done Comments Pneumococcal Vaccine: Pediat rics (0 to 5 Years) and At-Risk Patients (6 to 64 Years) (1 of 2 - PCV) 1981 Hepatitis B Vaccine (1 of 3 - 19+ 3-dose series) 04/19 Colorectal Cancer Screening: Annual FOBT 2024 Colorectal Cancer Screening: Colonoscopy 2024 Colorectal Cancer Screening: Sigmoidoscopy 2024 Influenza Vaccine (Season Ended) 2024 Insurance [facility] ([id number]) [facility] ([id number]) [place] [phone] Care Teams Ortho Nurse Relationship Specialty Start Date End Date Rhiannon Morrison MD [address] [place], [place] PCP - General Internal Medicine 02/28/24
--- OUTSIDE RECORDS SUMMARY | 2024-07-18 16:41 | XMS_ITS | Clinical Summary ---
Author Organization [employer] Address [address] [place] [address] [address] [place] [address] Care Team Providers Care Restrooms Or Lounges Maid Name Role Phone Unavailable Primary Care Provider [...] Maintenance Results * MAMMO BREAST LOCAL INITI [id number] (03/23/2019 10:45 AM EST) Anatomical Region Laterality Modality Breast Bilateral Mammography 03/23/2019 10:4 5 AM EST Narrative 03/31/2019 8:19 AM EST Refer to the Notes tab for result details [facility] Procedure: MAMMO BREAST LOCAL INITI [id number] Procedure Note Provider, Chrissie, - 07/04/2022 Refer to the Notes tab for result details [facility] Procedure: MAMMO BREAST LOCAL INITI [id number] us Marlene Conklin MD IMG BI PROCEDURES Final Resul t * HPV mRNA E6/E7 (01/15/2016 10:50 AM EDT) HPV mRNA E6/E7 Not Detected NOT DETECTED [facility] Comment: This assay detects E6/E7 viral messenger RNA (mRNA) from 14 high-risk HPV types (16,18,31,33,35,39,45,51, 52,56,58,59,66,68). This test was performed using the APTIMA(R) TMA HPV Assay ([employer] For additional information, please refer to [email or web address]/faq/BUX961e3 Test Performed by [facility], [place], [address] [place] [id number] Kaleb Madera M.D., Ph.D., Director of Laboratories , [facility] [id number] Please note: ??Effective 12/23/2015, HPV testing will be performed using [employer]'s APTIMA test which targets mRNA. Detecting mRNA instead of DNA, as in older methods, offers significant improvements in specificity. 01/15/2016 10:5 0 AM EDT us Eloisa De La Vega CNM HISTORICAL/NON ORDERABLE LABS Final Result [facility] [address] from Last 3 Months or Most Recently Relevant to Health Maintenance
== END 2024-07-18 14:26 | disposition home or self-care (01) ==
LOC: HO.HMCH 13:42
PROVIDERS: PCP Internal Medicine; Visit Provider Internal Medicine
DX: Z00.00 Encounter for general adult medical examination without abnormal findings (principal); Q85.00 Neurofibromatosis, unspecified; Z23 Encounter for immunization

== ENCOUNTER → 2024-07-18 13:42 | Outpatient (BNVA) | payer OTHER, SELFPAY | PROVIDERS: PCP Internal Medicine; Visit Provider Internal Medicine | DX: Z00.00 Encounter for general adult medical examination without abnormal findings (principal); E78.5 Hyperlipidemia, unspecified; Q85.00 Neurofibromatosis, unspecified; Z23 Encounter for immunization | CPT/HCPCS: 90471; 90715; 99396 ==

== ENCOUNTER 2024-09-11 09:25 | Outpatient (AMB) | payer OTHER, SELFPAY ==
[2024-09-11 09:49] VITALS: BP 120/82; PULSE 75; BMI 28.9
--- NOTE | 2024-09-11 09:49 | A.OFFVIS_ITS ---
Vital Signs 09/11/24 09:49 Height 5 ft 3 in Weight 163 lb 2.273 oz BMI 28.9 BP 120/82 Blood Pressure Location Lt brachial Position Sitting Pulse 75 Intake Visit Reasons: drier helper/kirkland, maximilian/syncope and collapse Intake Note: New patient c/o chest pain when eating Clinical Statistical Programmer Required: Yes Clinical Statistical Programmer Services: Clinical Statistical Programmer Present Clinical Statistical Programmer Name: [facility] Granite Chip Terrazzo Finisher: Granite Chip Terrazzo Finisher Present Accompanied by: Mother Allergies No Known Allergies [No Known Allergies*] Allergy (Verified 07/18/24 14:09) Medication List - Last Reconciled 09/11/24 by Theron Higuera MD albuterol sulfate 90 mcg/actuation 2 puffs inhalation Q6H PRN HPI Comments Details: Xiomy was referred here for evaluation of falls/syncopal episode. Patient presents here with her mother due to her diagnose of mental disability. She also has prior history of neurofibromatosis as well as breast cancer. No prior cardiovascular history. Denies any history of hypertension, diabetes. But this is about few months ago while she was doing dishes and she has another room she heard a loud crash and banging of the cavernous. When she came to the kitchen she notices that her daughter was on the ground but conscious. Daughter did not remember how she got on the ground. She was brought to the emergency room. In the emergency room in the workup was initially negative. The following day she subsequently remembered and thinks that she might have passed out. She had no episodes of chest pain or shortness of breath or palpitation prior to passing out. She has not had any episodes since then. She does drink adequate water but not much salt intake. Denies any other symptoms. No exertional chest pain. However she gets chest pain after she has eaten. 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 Cellulitis Cognitive deficits Migraine headache Recurrent UTI Neurofibromatosis Breast CA Surgical History History of lumpectomy of left breast (03/23/19) History of left breast biopsy (03/01/19) History of lithotripsy (03/2018) History of excision of mass (09/2017) History of local excision of skin lesion (08/17/17) History of right breast biopsy (08/2015) History of bilateral breast biopsy (06/27/15) History of tubal ligation History of excision of lesion Family History Father History of diabetes mellitus CAD (coronary artery disease) Mother History of hypertension History of diabetes mellitus Social History Household Members: Family Housing: Apartment Alcohol intake: never Patient Tobacco Use Status: Never used Tobacco e-Cigarette/Vaping Use: Never Used Second Hand Smoke Exposure: No service: No Current occupational status: unemployed Cognitive needs: No Hearing needs: No Vision needs: Yes (Glasses) Review of Systems Const Denies chills, Denies daytime sleepiness, Denies fatigue, Denies fever(s), Denies frequent falls, Denies poor appetite, Denies snoring, Denies stops breathing during sleep, Denies weakness, Denies weight gain and Denies weight loss Eyes Denies loss of vision ENT Denies dizziness and Denies hearing loss Card Reports chest pain, Denies claudication, Denies leg edema, Denies lightheadedness, Denies palpitations, Denies dyspnea, Denies dyspnea on exertion and Denies orthopnea Resp Denies cough, Denies excessive phlegm production, Denies dyspnea, Denies dyspnea on exertion, Denies snoring and Denies wheezing GI Denies abdominal pain, Denies hematochezia, Denies change in bowel habits, Denies nausea and Denies vomiting Denies urinary frequency and Denies dysuria Musc Denies arthralgias, Denies muscle weakness, Denies numbness and Denies other (frequent falls) Skin/Breast Denies nail changes and Denies rash Neuro Denies Abnormal speech present, Denies dizziness, Denies frequent falls, Denies loss of vision, Denies memory loss, Denies numbness and Denies weakness Psych Denies depression and Denies memory loss Endo Denies fatigue and Denies palpitations Isaac/Lymph Reports easy bruising and Reports other (anemia) Aller/Immun Denies wheezing Physical Exam Vital Signs: Last Vital Signs Pulse 75 09/11/24 09:49 BP 120/82 09/11/24 09:49 BMI result Body Mass Index 28.9 Const General: cooperative, comfortable, no acute distress, alert and awake Nutritional Appearance: average body habitus Orientation/consciousness: patient oriented x3 Limitations: no limitations HEENT Head: Yes normocephalic and Yes atraumatic Neck Neck: Yes trachea midline, Yes supple and Yes no JVD Resp Effort & Inspection: normal respiratory effort Auscultation: clear to auscultation bilaterally Cardio Jugular venous distension: no JVD Palpation: normal PMI Rate: regular rate Rhythm: regular rhythm Heart sounds: S1 normal heart sound present, S2 normal heart sound present, no click, no gallops, no murmurs and no rubs GI Auscultation: normal bowel sounds Skin General skin exam: no rashes or lesions noted Neuro General: patient oriented x3 and no focal motor deficits Speech: No Abnormal speech present Extrem General: Yes no clubbing, cyanosis or edema Psych Appearance: grossly normal Office Procedures EKG Details: EKG shows normal sinus rhythm normal EKG 67942-[id number], Complete Assessment & Plan Assessment & Plan (1) Syncopal episodes: Code(s): R55 - Syncope and collapse Category: Medical Qualifiers: Syncope type: unspecified Qualified Code(s): R55 - Syncope and collapse Plan: Patient with possible syncopal episode unclear with a history. Although she was found on the floor by her mom while she was washing this is. Orthostatic hypotension in his possible. I have advised her to increase her fluid and salt intake. I have also suggest her to undergo tilt-table test to assess for any clear neurocardiogenic syncope reflex. Also her workup with echocardiogram and Holter are within normal limits. Orthostatic precautions were discussed. (2) Chest pain: Code(s): R07.9 - Chest pain, unspecified Plan: Patient has episodes of chest pain which is not exertional in nature but happens after eating. Most likely suggestive of either esophageal spasm/stricture. Will refer to GI for further evaluation. Does not appear to be having any symptoms suggestive of angina does not require any stress testing at this point time. Will follow up in the clinic in 3 months time after testing. Thank you for allowing me to partake in her care Coding Level of Care Code New Pt Level 4 (51212) Complex EM visit Add On G2211 Diagnoses Syncope, unspecified syncope type R55 Syncope type: unspecified Chest pain R07.9 CPT Codes EKG - CPT: 70058-[id number], Complete ([id number])
== END 2024-09-11 10:24 | disposition home or self-care (01) ==
LOC: HO.HCS 09:27
PROVIDERS: PCP Internal Medicine; Visit Provider Internal Medicine Cardiovascular Disease
DX: R55 Syncope and collapse (principal); R07.9 Chest pain, unspecified
CPT/HCPCS: 93010; 99214; G2211

== ENCOUNTER → 2024-09-11 09:25 | Outpatient (BNVA) | payer OTHER, SELFPAY | PROVIDERS: PCP Internal Medicine; Visit Provider Internal Medicine Cardiovascular Disease | DX: R55 Syncope and collapse (principal); I10 Essential (primary) hypertension; R07.9 Chest pain, unspecified | CPT/HCPCS: 93005; 99212 ==

== ENCOUNTER 2024-11-27 12:15 | Outpatient (REF) | payer OTHER, SELFPAY ==
--- OUTSIDE RECORDS SUMMARY | 2024-11-27 13:20 | XMS_ITS | Clinical Summary ---
Author Organization [employer] Address [address] [place] [address] [address] [place] [address] Care Team Providers Care Auto Design Checker Name Role Phone Unavailable Primary Care Provider [...] 1975 FIT 1975 FOBT 1975 Sigmoidoscopy 1975 Disability Screening 1975 Alcohol/Substance Use Screening 1987 Tobacco Screening 1987 Family Planning (PISQ) 1990 Pap Smear 1996 Cervical Cancer Screening 01/14/2021 HPV/Cotest 01/14/2021 01/15/2016 Mammogram 03/23/2021 03/23/2019, 03/12, 03/23/2019, Additional history exists DTaP/Tdap/Td Vaccines (2 - Td or Tdap) 05/19/2022 05/19/2012, 06/21/2006 COVID-19 Vaccine (4 - season) 2023 03/05/2021, 07/09/2020, 06/11/2020 Influenza Vaccine (#1) 2024 , 04/14/2019, 02/16/2018, Additional history exists Zoster Vaccines [...] Years) and At-Risk Patients (6 to 49) Years Aged Out 01/22/2016 No longer eligible based on patient's age to complete this topic HIB Vaccines Aged Out No longer eligi ble based on patient's age to complete this topic HPV Vaccines Aged Out No longer eligi ble based on patient's age to complete this topic IPV Vaccines Aged Out No longer eligi ble based on patient's age to complete this topic Meningococcal B Vaccine Aged Out No l onger eligible based on patient's age to complete [...] Maintenance Results * MAMMO BREAST LOCAL INITI [id number] 1 (03/23/2019 10:45 AM EST) Anatomical Region Laterality Modality Breast Bilateral Mammography 03/23/2019 10:4 5 AM EST Narrative 03/31/2019 8:19 AM EST Refer to the Notes tab for result details Legacy Procedure: MAMMO BREAST LOCAL INITI [id number] 1 Procedure Note Provider, MD Chrissie - 07/04/2022 Refer to the Notes tab for result details Legacy Procedure: MAMMO BREAST LOCAL INITI [id number] 1 us Marlene Conklin MD IMG BI PROCEDURES Final Resul t * HPV mRNA E6/E7 (01/15/2016 10:50 AM EDT) HPV mRNA E6/E7 Not Detected NOT DETECTED [facility] Comment: This assay detects E6/E7 viral messenger RNA (mRNA) from 14 high-risk HPV types (16,18,31,33,35,39,45,51, 52,56,58,59,66,68). This test was performed using the APTIMA(R) TMA HPV Assay ([employer] For additional information, please refer to http://education.[place] [place]/faq/KWO422i7 Test Performed by [facility], [facility], [address] [place] [id number] Kaleb Madera M.D., Ph.D., Director of Laboratories , [facility] [id number] Please note: Effective 12/23/2015, HPV testing will be performed using [employer]'s APTIMA test which targets mRNA. Detecting mRNA instead of DNA, as in older methods, offers significant improvements in specificity. 01/15/2016 10:5 0 AM EDT us Eloisa De La Vega CNM HISTORICAL/NON ORDERABLE LABS Final Result [facility] [address] from Last 3 Months or Most Recently Relevant to Health Maintenance
--- OUTSIDE RECORDS SUMMARY | 2024-11-27 13:20 | XMS_ITS | Clinical Summary ---
Author Organization [facility] Address [address] [place] [address] Phone Care Team Providers Care Field Service Coordinator Name Role Phone Rhiannon Morrison MD Primary Care Provider [phone] Allergies No known active allergies Medications TAMOXIFEN [...] Care Team (Late st Contact Info) Description 03/22/2025 1:45 PM EST Office Visit [facility] [address] [place] [address] Beau Weaver MD [address] [facility] [address] [place] [id number] Health Maintenance Due Date Last Done Comments Hepatitis B Vaccine (1 of 3 - 19+ 3-dose series) 04/19 Pneumococcal Vaccine: Peds ( 0 to 5 Years) and At-Risk Patients (6 to 49 Years) (1 of 2 - PCV) 1994 Colorectal Cancer Screening: Annual FOBT 2024 Colorectal Cancer Screening: Colonoscopy 2024 Colorectal Cancer Screening: Sigmoidoscopy 2024 Influenza Vaccine (#1) 2024 Insurance [facility] ([id number]) [place]YL[place] [id number] [facility] ([id number]) Care Teams Field Service Coordinator Relationship Specialty Start Date End Date Rhiannon Morrison MD [address] [place], [place] PCP - General Internal Medicine 02/28/24
== END 2024-11-27 12:16 | disposition home or self-care (01) ==
LOC: HO.US 12:15
PROVIDERS: PCP Internal Medicine; Visit Provider Nurse Practitioner Family
DX: N20.0 Calculus of kidney (principal)
CPT/HCPCS: 76775

== ENCOUNTER → 2024-11-27 12:30 | Outpatient (BNV) | payer OTHER, SELFPAY | PROVIDERS: PCP Internal Medicine; Visit Provider Radiology Diagnostic Radiology | DX: N28.1 Cyst of kidney, acquired (principal) | CPT/HCPCS: 76775 ==

== ENCOUNTER 2024-12-04 10:12 | Outpatient (AMB) | payer OTHER, SELFPAY ==
--- NOTE | 2024-12-04 10:17 | MHC.OFFVIS ---
Intake Visit Reasons: 1y/US Intake Note: Patient is present for 1Y/US Urology Medication:NONE Antibiotic Allergy:NONE Blood Thinner:NONE Bail Attacher Required: No Bail Attacher Services: Bail Attacher Present Bail Attacher Name: Barbie Valdovinos Allergies No Known Allergies (No Known Allergies*) Allergy (Verified 12/04/24 11:11) Medication List - Last Reconciled 12/04/24 by MARK Hurtado No Known Home Meds HPI Comments Details: Xiomy is a pleasant 49-year-old Chinese-speaking female patient of Dr. Curtis Bloom who was accompanied by her mom at today's visit. She has a past medical history of breast cancer, cellulitis, cognitive deficits, migraines, neurofibromatosis, recurrent urinary tract infections, and nephrolithiasis. She presents to the office today for follow-up of her nephrolithiasis and recurrent urinary tract infections. In discussion with the patient today she reports to be doing and feeling well. She denies having had any UTI like symptoms since her last office visit here. She does report noting a few episodes of urge incontinence. We did discussed potential causes of urge incontinence as well as further treatment options and risks and benefits of these treatment options. Most recent renal ultrasound results remain pending however unofficial results were reviewed 12/04 Right kidney with no hydronephrosis, renal calculi, or lesions noted. Left kidney with cortical thinning question dilated calyces, in punctate calyceal seen throughout. In office urinalysis results reviewed with the patient today. When asked patient denies urinary urgency, urinary frequency, nocturia, hematuria, dysuria, foul smelling urine, changes to urinary stream, flank pain, fever, and or chills. She is happy with her current voiding parameters. When asked she reports compliance with vitamin B6 and adequate hydration. She otherwise offers no other issues or concerns at this time. 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 Cellulitis Cognitive deficits Migraine headache Recurrent UTI Neurofibromatosis Breast CA Surgical History History of lumpectomy of left breast (03/23/19) History of left breast biopsy (03/01/19) History of lithotripsy (03/2018) History of excision of mass (09/2017) History of local excision of skin lesion (08/17/17) History of right breast biopsy (08/2015) History of bilateral breast biopsy (06/27/15) History of tubal ligation History of excision of lesion Family History Father History of diabetes mellitus CAD (coronary artery disease) Mother History of hypertension History of diabetes mellitus Social History Household Members: Family Housing: Apartment Alcohol intake: never Patient Tobacco Use Status: Never used Tobacco e-Cigarette/Vaping Use: Never Used Second Hand Smoke Exposure: No service: No Current occupational status: unemployed Cognitive needs: No Hearing needs: No Vision needs: Yes (Glasses) Review of Systems Const All systems reviewed & are unremarkable except as noted in HPI and below Eyes Reports no additional complaints ENT Reports no additional complaints Card Reports no additional complaints Resp Reports no additional complaints GI Reports no additional complaints Reports as per HPI Musc Reports no additional complaints Neuro Reports no additional complaints Psych Reports no additional complaints Endo Reports no additional complaints Isaac/Lymph Reports as per HPI Aller/Immun Reports no additional complaints Physical Exam Const General: cooperative, healthy appearing, comfortable, no acute distress, well developed, alert and awake Orientation/consciousness: patient oriented x3 Limitations: language barrier HEENT Head: Yes normal to inspection, Yes normocephalic and Yes atraumatic Ears: hearing grossly normal bilaterally Eyes General: appearance normal, both eyes and all related structures Neck Neck: Yes normal visual inspection and Yes trachea midline Chest Chest palpation & inspection: normal inspection of the chest Resp Effort & Inspection: normal respiratory effort and able to speak in complete sentences Cardio Rate: regular rate GI Inspection: Yes normal to inspection General: Yes no CVA tenderness Back/Spine/Pelvis Back: no CVA tenderness Skin General skin exam: no rashes or lesions noted Neuro General: patient oriented x3 Extrem General: Yes normal to inspection Psych Appearance: grossly normal and well kempt Mental Status: mental status grossly normal Speech and movement: Normal speech and movement present and Clear speech present Affect: normal affect Attitude: cooperative Thought process: Normal thought process present Thought content: Normal thought content present Insight: Fair insight present (Psych) Judgement: Fair judgement present (Psych) Results AMB Urinalysis, Automated UA Leukoctes 0 Chandan/uL Last Edit by GUADALUPE Yadav on 12/04/24 10:31 UA Nitrite Negative Last Edit by Anh Ordoñez [facility] on 12/04/24 10:31 UA Urobilinogen 0.2 mg/dL Last Edit by Anh Ordoñez [facility] on 12/04/24 10:31 UA Protein 0 mg/dL Last Edit by Anh Ordoñez [facility] on 12/04/24 10:31 UA pH 6.0 Last Edit by Anh Ordoñez [facility] on 12/04/24 10:31 UA Blood 0 Gurinder/uL Last Edit by Anh Ordoñez [facility] on 12/04/24 10:31 UA Specific [place] 1.015 Last Edit by Anh Ordoñez [facility] on 12/04/24 10:31 UA Ketone Negative Last Edit by Anh Ordoñez [facility] on 12/04/24 10:31 UA Bilirubin 0 mg/dL Last Edit by Anh Ordoñez [facility] on 12/04/24 10:31 UA Glucose 0 mg/dL Last Edit by Anh Ordoñez [facility] on 12/04/24 10:31 Results Reviewed Results Reviewed: Laboratory Last Values Urine pH (Auto) 6.0 12/04/24 10:30 Specific [place] (Auto) 1.015 12/04/24 10:30 Urine Protein (Auto) 0 mg/dL 12/04/24 10:30 Glucose (UA)(Auto) 0 mg/dL 12/04/24 10:30 Urine Ketones (Auto) Negative 12/04/24 10:30 Urine Blood (Auto) 0 Gurinder/uL 12/04/24 10:30 Urine Nitrite (Auto) Negative 12/04/24 10:30 Urine Bilirubin (Auto) 0 mg/dL 12/04/24 10:30 Urine Urobilinogen (Auto) 0.2 mg/dL 12/04/24 10:30 Leukocyte Esterase (Auto) 0 Chandan/uL 12/04/24 10:30 Assessment & Plan Assessment & Plan (1) Renal calculi: Code(s): N20.0 - Calculus of kidney Category: Medical (2) Complex renal cyst: Code(s): N28.1 - Cyst of kidney, acquired Category: Medical Plan Recent unofficial renal ultrasound results reviewed with the patient today; as noted above. In office urinalysis results reviewed with the patient today; as noted above. We did discussed potential causes of urge incontinence and further treatment options and risks and benefits of these treatment options. Will continue with surveillance monitoring. All questions were answered. Follow-up in 1 year with imaging and labs; or sooner with any issues, concerns, and or questions. Orders: Orders AMB Urinalysis Automated Today Z13.9 - Encounter for screening, unspecified Blood Urea Nitrogen 1 Year N20.0 - Calculus of kidney, N28.1 - Cyst of kidney, acquired Creatinine 1 Year N20.0 - Calculus of kidney, N28.1 - Cyst of kidney, acquired CT abdomen pelvis wo/w IV con 1 Year N20.0 - Calculus of kidney, N28.1 - Cyst of kidney, acquired Patient Instructions: The patient had an opportunity to ask questions regarding the treatment plan. All questions were answered. Physical exam, labs, and imaging were discussed and reviewed in detail. As well as risks, benefits, and discussion of treatment choices. No major barriers to understanding were identified. The patient expressed understanding and agreement with the above treatment plan. The patient was made aware they should contact our office by phone for worsening of their current condition, the appearance of new symptoms, or with any questions or concerns. Compliance is encouraged with any medications and follow up testing that is ordered. It is a privilege to be allowed the opportunity to participate in? your urological care.? Again, if you have any questions or concerns If you have any questions or concerns please do not hesitate to contact me. The office is [phone]. This note is constructed using voice recognition software. While every effort has been made to ensure accuracy glass technologist errors may have been included. Yours sincerely, MARK Hurtado Coding Level of Care Code Est Pt Level 3 (97651) Complex EM visit Add On G2211 Diagnoses Renal calculi N20.0 Complex renal cyst N28.1
--- OUTSIDE RECORDS SUMMARY | 2024-12-04 11:18 | XMS_ITS | Clinical Summary ---
Author Organization [facility] Address [address] [place] [address] Phone Care Team Providers Care Verify Rep Name Role Phone Rhiannon Morrison MD Primary Care Provider [phone] Allergies No known active allergies Medications TAMOXIFEN [...] Visit [facility] [address] [place] [address] Beau Weaver MD [address] [facility] [address] [place] [id number] Health Maintenance Due Date Last Done Comments Hepatitis B Vaccine (1 of 3 - 19+ 3-dose series) 04/19 Pneumococcal Vaccine: Peds ( 0 to 5 Years) and At-Risk Patients (6 to 49 Years) (1 of 2 - PCV) 1994 Colorectal Cancer Screening: Annual FOBT 2024 Colorectal Cancer Screening: Colonoscopy 2024 Colorectal Cancer Screening: Sigmoidoscopy 2024 Influenza Vaccine (#1) 2024 Insurance [facility] ([id number]) [place] [id number] [facility] ([id number]) Care Teams Verify Rep Relationship Specialty Start Date End Date Rhiannon Morrison MD [address] [place], [place] PCP - General Internal Medicine 02/28/24
--- OUTSIDE RECORDS SUMMARY | 2024-12-04 11:19 | XMS_ITS | Clinical Summary ---
Author Organization [employer] Address [address] [place] [address] 7[address] [place] [address] Care Team Providers Care Professional Nurse Name Role Phone Unavailable Primary Care Provider [...] Maintenance Results * MAMMO BREAST LOCAL INITI [id number] 1 (03/23/2019 10:45 AM EST) Anatomical Region Laterality Modality Breast Bilateral Mammography 03/23/2019 10:4 5 AM EST Narrative 03/31/2019 8:19 AM EST Refer to the Notes tab for result details Legacy Procedure: MAMMO BREAST LOCAL INITI 53828 1 Procedure Note Provider, MD Chrissie - 07/04/2022 Refer to the Notes tab for result details [facility] Procedure: MAMMO BREAST LOCAL INITI 31543 1 us Marlene Conklin MD IMG BI PROCEDURES Final Resul t * HPV mRNA E6/E7 (01/15/2016 10:50 AM EDT) HPV mRNA E6/E7 Not Detected NOT DETECTED [facility] Comment: This assay detects E6/E7 viral messenger RNA (mRNA) from 14 high-risk HPV types (16,18,31,33,35,39,45,51, 52,56,58,59,66,68). This test was performed using the APTIMA(R) TMA HPV Assay ([employer] For additional information, please refer to http://education.WangYou/faq/ZFV704l7 Test Performed by [facility], [facility], [address] [place] [id number] Kaleb Madera M.D., Ph.D., Director of Laboratories , [facility] [id number] Please note: Effective 12/23/2015, HPV testing will be performed using [employer]'s APTIMA test which targets mRNA. Detecting mRNA instead of DNA, as in older methods, offers significant improvements in specificity. 01/15/2016 10:5 0 AM EDT us Eloisa De La Vega CNM HISTORICAL/NON ORDERABLE LABS Final Result [facility] [address] from Last 3 Months or Most Recently Relevant to Health Maintenance
--- OUTSIDE RECORDS SUMMARY | 2024-12-04 11:19 | XMS_ITS | Clinical Summary ---
Author Organization [facility] Address [address] [place] [address] Phone Care Team Providers Care Retail Sales Teammate Name Role Phone Physician, No Pcp Primary Care Provider Unavaila ble Encounters Date Type Department Care Team Description 11/28/2024 1:27 PM EDT - 11/28/2024 11:59 PM EDT Hospital Encounter [facility] Xray [address] [place] [address] Syncope without other cardiovascular symptoms Discharge Disposition: Home or Self Care from Last 3 Months Social History Tobacco Use Types Packs/Day Years Used Date Smoking Tobacco: Never Assessed Comments Unknown Sex and Gender Information Value Date Recorded Sex Assigned at Not on file Legal Sex Female 4:29 PM EST Gender Identity Not on file Sexual Orientation Not on file Plan of Treatment Health Maintenance Due Date Last Done Comments Cervical Cancer Screening: Pap Smear 1996 Breast Cancer Screening 03/23/2021 03/23/2019 Depression Screening 04/12/2024 Colorectal Cancer Screening: Colonoscopy 09/11/2024 HIV Screening 09/11/2024 Hepatitis C Screening 09/11/2024 Medicare Annual Wellness Visit 09/11/2024 Social Influencers of Health Screening 09/11/2024 Influenza Vaccine (#1) 2024 , 01/26/2023, 01/12/2022, Additional history exists DTaP,Tdap,and Td Vaccines (4 - Td or Tdap) 07/18/2034 07/18/2024, 05/19/2012, 06/21/2006 Varicella Vaccines Aged Out 11/10/2002 No longer eligible based on patient's age to complete this topic MMR Vaccines Aged Out 06/10/2006 No longer eligi ble based on patient's age to complete this topic Hepatitis B Vaccines Completed 11/06/2010, 09/04/2010, 08/06/2010, Additional history exists Hepatitis A Vaccines Aged Out 05/19/2012 No long er eligible based on patient's age to complete this topic Pneumococcal Vaccine: Pediatrics (0 to 5 Years) and At-Risk Patients (6 to 49 Years) Aged Out 01/22/2016 No longer eligible based on patient's age to complete this topic COVID-19 Vaccine Completed 01/05/2024, 06/2021, 03/05/2021, Additional history exists HIB Vaccines Aged Out No longer eligi ble based on patient's age to complete this topic HPV Vaccines Aged Out No longer eligi ble based on patient's age to complete this topic IPV Vaccines Aged Out No longer eligi ble based on patient's age to complete this topic Meningococcal ACWY Vaccine Aged Out N o longer eligible based on patient's age to complete this topic Meningococcal B Vaccine Aged Out No l onger eligible based on patient's age to complete this topic RSV Immunization Patients Under 20 months Aged Out No longer eligible based on patient's age to complete this topic Procedures Procedure Name Priority Date/Time Associated Diagnosis Comments TILT TABLE Routine 11/28/2024 2:37 PM EDT Syncope without other cardiovascular symptoms from Last 3 Months Results * Tilt table (11/28/2024 2:37 PM EDT) Anatomical Region Laterality Modality Radiographic Gisel ging Narrative 11/28/2024 3:14 PM EDT Tilt Table The patient was brought to lab in fasting state. Patient lied supine for 5 minutes for equilibrium. Baseline ECG showed normal sinus rhythm. Baseline supine minimum BP: 110/62 mmHg Baseline supine minimum HR: 78 bpm Patient tilted to 70 degrees. Tilt maintained for 20 minutes. Minimum BP during tilt: 123/64 mmHg Maximum BP during tilt: 166/70 mmHg Minimum heart rate during tilt: 72 bpm Maximum heart rate during tilt: 78 bpm Rhythm during tilt: normal sinus rhythm There was a clear orthostatic response not noted. Patient experienced no HR increase with tilt. No symptoms reported. Pt is feeling anxious throughout the procedure Conclusion: Negative tilt test. Theron Higuera MD CV CARDIAC SERVICES PROCEDURES F inal Result from Last 3 Months Insurance [facility] MEDIC[facility] Member Subscriber Plan / Payer (Ef fective 2013-Present) Name:LUCIA SHUKLA Relation to Subscriber:Self Name:Lucia Shukla Payer ID:[id number] Group ID:[id number] Type:Not on file Address: [facility] [address] [phone] Care Teams Retail Sales Teammate Relationship Specialty Start Date End Date Physician, No Pcp PCP - General 11/28/24
== END 2024-12-04 11:13 | disposition home or self-care (01) ==
LOC: HO.HUSH 10:13
PROVIDERS: PCP Internal Medicine; Visit Provider Nurse Practitioner Family
DX: N20.0 Calculus of kidney (principal); N28.1 Cyst of kidney, acquired; Z13.9 Encounter for screening, unspecified
CPT/HCPCS: 99213; G2211

== ENCOUNTER → 2024-12-04 10:12 | Outpatient (BNVA) | payer OTHER, SELFPAY | PROVIDERS: PCP Internal Medicine; Visit Provider Nurse Practitioner Family | DX: N20.0 Calculus of kidney (principal); N28.1 Cyst of kidney, acquired | CPT/HCPCS: 81003; 99212 ==

== ENCOUNTER 2024-12-19 12:25 | Outpatient (AMB) | payer OTHER, SELFPAY ==
[2024-12-19 12:49] VITALS: BP 128/76; PULSE 71; BMI 28.2
--- NOTE | 2024-12-19 12:49 | A.OFFVIS_ITS ---
Vital Signs 12/19/24 12:49 Height 5 ft 4 in Weight 164 lb 7.437 oz BMI 28.2 BP 128/76 Blood Pressure Location Lt brachial Position Sitting Pulse 71 Pulse Source Pulse Oximeter Intake Visit Reasons: 3 mth f/up tilt/ NS Non Licensed Nuclear Equipment Operator Required: Yes Non Licensed Nuclear Equipment Operator Name: Kayley Nair [id number] Farm Service Adviser: Farm Service Adviser Present Accompanied by: Mother Allergies No Known Allergies (No Known Allergies*) Allergy (Verified 12/19/24 12:55) Medication List - Last Reconciled 12/19/24 by Ermias Mckeon NP No Known Home Meds HPI Comments Details: This is a 49-year-old female patient coming in for a follow-up visit, accompanied by her mother. Patient with a history of cognitive delay, neurofibromatosis, and breast cancer was previously seen in the office for question about a possible syncopal episode and ongoing chest discomfort. Patient subsequently underwent a tilt-table study, a Holter, and an echo study. Today, patient is here to review those results and is reporting ongoing epigastric pain which patient says is triggered by eating either spicy food or hot drinks. Patient was previously referred out to GI for this and patient states that she has an upcoming appointment at the end of the month for this. Patient is otherwise denying any exertional chest pain, shortness of breath, palpitations, dizziness, orthopnea, PND, leg edema, presyncope, or syncope. 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 Cellulitis Cognitive deficits Migraine headache Recurrent UTI Neurofibromatosis Breast CA Surgical History History of lumpectomy of left breast (03/23/19) History of left breast biopsy (03/01/19) History of lithotripsy (03/2018) History of excision of mass (09/2017) History of local excision of skin lesion (08/17/17) History of right breast biopsy (08/2015) History of bilateral breast biopsy (06/27/15) History of tubal ligation History of excision of lesion Family History Father History of diabetes mellitus CAD (coronary artery disease) Mother History of hypertension History of diabetes mellitus Social History Household Members: Family Housing: Apartment Alcohol intake: never Patient Tobacco Use Status: Never used Tobacco e-Cigarette/Vaping Use: Never Used Second Hand Smoke Exposure: No service: No Current occupational status: unemployed Cognitive needs: No Hearing needs: No Vision needs: Yes (Glasses) Review of Systems Const Denies daytime sleepiness, Denies difficulty sleeping, Denies snoring, Denies stops breathing during sleep and Denies weakness Card Denies chest pain, Denies rapid heart rate, Denies irregular heart rhythm, Denies claudication, Denies leg edema, Denies lightheadedness, Denies palpitations, Denies dyspnea, Reports dyspnea on exertion, Denies orthopnea, Denies paroxysmal nocturnal dyspnea and Denies slow heart rate Resp Denies cough, Denies dyspnea, Reports dyspnea on exertion and Denies snoring GI Reports no additional complaints, Denies hematochezia, Denies change in stool character and Denies dyspepsia Musc Denies abnormal gait, Denies muscle weakness and Denies numbness Neuro Denies abnormal gait, Denies numbness and Denies weakness Endo Denies palpitations Physical Exam Vital Signs: Last Vital Signs Pulse 71 12/19/24 12:49 BP 128/76 12/19/24 12:49 BMI result Body Mass Index 28.2 Const General: cooperative, healthy appearing, comfortable and no acute distress Orientation/consciousness: patient oriented x3 HEENT Head: Yes normal to inspection Neck Neck: Yes normal visual inspection, Yes trachea midline and Yes supple Chest Chest palpation & inspection: normal inspection of the chest Resp Effort & Inspection: normal respiratory effort Auscultation: clear to auscultation bilaterally, no crackles, no rales, no rhonchi and no wheezes Cardio Jugular venous distension: no JVD Palpation: normal PMI Rate: regular rate Rhythm: regular rhythm Heart sounds: S1 normal heart sound present, S2 normal heart sound present, no click, no gallops, no murmurs and no rubs Peripheral pulses: Peripheral pulses 2+ throughout GI Inspection: Yes normal to inspection Palpation (GI): Soft to palpation Auscultation: normal bowel sounds Skin General skin exam: no rashes or lesions noted Neuro General: patient oriented x3 Extrem General: Yes normal to inspection, No no pedal edema and No calf tenderness Psych Appearance: grossly normal Mental Status: mental status grossly normal Speech and movement: Normal speech and movement present Assessment & Plan Assessment & Plan (1) Syncopal episodes: Code(s): R55 - Syncope and collapse Category: Medical Qualifiers: Syncope type: unspecified Qualified Code(s): R55 - Syncope and collapse Plan: 06/14/2024-Holter study showed a normal sinus rhythm with rare ectopy. 06/14/2024-echo study showed a normal LV systolic function with an ejection fraction between 60-65% with mild diastolic dysfunction. 11/28/20242314-[id number] study at [facility] was negative. Given above findings and no recurrent syncopal episodes, no further testing indicated at this time. Advised to follow up with GI in regards to the epigastric pain triggered with certain foods. Advised to avoid foods that trigger her symptoms. Blood pressure is within normal limits. Advised heart healthy diet, regular exercise, adequate hydration, and management of vascular risk factors. Follow-up on an as-needed basis. In the interim, patient will call the office with any concerns or change in symptoms. Advised to seek ER care in case of exertional chest pain not resolved with rest. This note was generated using voice recognition software. While every effort has been made to ensure accuracy and proper reshipping clerk, there may be occasional errors that could affect the content or meaning of the described symptoms. Coding Level of Care Code Est Pt Level 3 (45936) Complex EM visit Add On G2211 Diagnoses Syncope, unspecified syncope type R55 Syncope type: unspecified Time Spent (min) 29 Comment Time spent in reviewing the chart, test results, assessment, counseling and documentation.
--- OUTSIDE RECORDS SUMMARY | 2024-12-19 14:48 | XMS_ITS | Clinical Summary ---
Author Organization [employer] Address [address] [place] [address] [address] [place] [address] Care Team Providers Care Feed Research Aide Name Role Phone Unavailable Primary Care Provider [...] 05/19/2012, 06/21/2006 COVID-19 Vaccine (4 - season) 2024 03/05/2021, 07/09/2020, 06/11/2020 Influenza Vaccine (#1) 2024 [...] Maintenance Results * MAMMO BREAST LOCAL INITI 01597 1 (03/23/2019 10:45 AM EST) Anatomical Region Laterality Modality Breast Bilateral Mammography 03/23/2019 10:4 5 AM EST Narrative 03/31/2019 8:19 AM EST Refer to the Notes tab for result details [facility] Procedure: MAMMO BREAST LOCAL INITI 46970 1 Procedure Note Provider, MD Chrissie - 07/04/2022 Refer to the Notes tab for result details [facility] Procedure: MAMMO BREAST LOCAL INITI 23587 1 us Marlene Conklin MD IMG BI PROCEDURES Final Resul t * HPV mRNA E6/E7 (01/15/2016 10:50 AM EDT) HPV mRNA E6/E7 Not Detected NOT DETECTED [facility] Comment: This assay detects E6/E7 viral messenger RNA (mRNA) from 14 high-risk HPV types (16,18,31,33,35,39,45,51, 52,56,58,59,66,68). This test was performed using the APTIMA(R) TMA HPV Assay ([employer] For additional information, please refer to http://education.TalkTo/faq/LSD724h5 Test Performed by [facility], [facility], [address] [place] [id number] Kaleb Madera M.D., Ph.D., Director of Laboratories , [facility] [id number] Please note: Effective 12/23/2015, HPV testing will be performed using [employer] [facility]'s APTIMA test which targets mRNA. Detecting mRNA instead of DNA, as in older methods, offers significant improvements in specificity. 01/15/2016 10:5 0 AM EDT us Eloisa De La Vega CNM HISTORICAL/NON ORDERABLE LABS Final Result [facility] [address] from Last 3 Months or Most Recently Relevant to Health Maintenance
--- OUTSIDE RECORDS SUMMARY | 2024-12-19 14:48 | XMS_ITS | Clinical Summary ---
Author Organization [facility] Address [address] [place] [address] Phone Care Team Providers Care Unisaw Operator Name Role Phone Physician, No Pcp Primary Care Provider Unavaila ble Encounters Date Type Department Care Team Description 11/28/2024 1:27 PM EDT - 11/28/2024 11:59 PM EDT Hospital Encounter [facility] Xray [address] [place] [address] Syncope without other cardiovascular symptoms [...] Health Screening 09/11/2024 Influenza Vaccine (#1) 2024 4, 01/26/2023, 01/12/2022, Additional history exists DTaP,Tdap,and Td [...] inal Result from Last 3 Months Insurance [facility] MEDICARE Member Subscriber Plan / Payer (Ef fective 2013-Present) Name:LUCIA SHUKLA Relation to Subscriber:Self Name:Lucia Shukla Payer ID:[id number] Group ID:[id number] Type:Not on file Address: [facility] [address] [phone] Care Teams Unisaw Operator Relationship Specialty Start Date End Date Physician, No Pcp PCP - General 11/28/24
--- OUTSIDE RECORDS SUMMARY | 2024-12-19 14:48 | XMS_ITS | Clinical Summary ---
Author Organization [facility] Address [address] [place] [address] Phone Care Team Providers Care Clerk Television Production Name Role Phone Rhiannon Morrison MD Primary Care Provider [phone] Allergies No known active allergies Medications TAMOXIFEN [...] Visit [facility] [address] [place] [address] Beau Weaver MD [address] [facility] [address] [place] [id number] Health Maintenance Due Date Last Done Comments Hepatitis B Vaccine (1 of 3 - 19+ 3-dose series) 04/19 Pneumococcal Vaccine: Peds ( 0 to 5 Years) and At-Risk Patients (6 to 49 Years) (1 of 2 - PCV) 1994 Colorectal Cancer Screening: Annual FOBT 2024 Colorectal Cancer Screening: Colonoscopy 2024 Colorectal Cancer Screening: Sigmoidoscopy 2024 Influenza Vaccine (#1) 2024 Insurance [facility] ([id number]) [address] [phone] [facility] ([id number]) Care Teams Clerk Television Production Relationship Specialty Start Date End Date Rhiannon Morrison MD [address] [place], [place] PCP - General Internal Medicine 02/28/24
== END 2024-12-19 13:16 | disposition home or self-care (01) ==
LOC: HO.HCS 12:26
PROVIDERS: PCP Internal Medicine
DX: R55 Syncope and collapse (principal)
CPT/HCPCS: 99213; G2211

== ENCOUNTER → 2024-12-19 12:25 | Outpatient (BNVA) | payer OTHER, SELFPAY | PROVIDERS: PCP Internal Medicine | DX: R55 Syncope and collapse (principal) | CPT/HCPCS: 99212 ==

== ENCOUNTER 2025-01-08 13:13 | Outpatient (AMB) | payer OTHER, SELFPAY ==
--- NOTE | 2025-01-08 13:14 | MHC.OFFVIS ---
Vital Signs 01/08/25 13:15 Height 5 ft 4 in Weight 166 lb BMI 28.5 BP 142/76 H Blood Pressure Location Rt brachial Position Sitting Pulse 66 Pulse Source Pulse Oximeter Pulse Oximetry (%) 99 Oxygen Delivery Method Room Air Intake Visit Reasons: Disease of esophagus Intake Note: New pt for initial eval of epigastric / chest pain. Referred from Cardiology. CC; C.O. epigastric pain, GERD sx, and dysphagia intermittently. Pt denies taking any tx for sx at this time. Staff Research Scientist Required: Yes Staff Research Scientist Services: Staff Research Scientist Present Staff Research Scientist Name: [facility] (Provider Only) Accompanied by: Family/Other Allergies No Known Allergies (No Known Allergies*) Allergy (Verified 01/08/25 13:15) HPI HPI Disease of esophagus: Details: 49-year-old female with past medical history of upper respiratory infection, abdominal pain, migraine headaches, transaminitis, neural fibromatosis, DCIS of left breast, recurrent UTI, syncope is here today for initial consultation. Patient was sent to us by solar photovoltaic designer. Patient reports epigastric pain, burning postprandially. Patient reports that it happens with soup or something warm. Patient denies eating any spicy food. Patient is having trouble swallowing things as well. Mainly sticky food like rice, bread or meat. No trouble swallowing fluids. Patient also reports what she calls a chest pain after eating hence she was sent to us for evaluation. She describes the pain as burning like sensation. Patient denies any nausea or vomiting. Reports that she is moving her bowels without any issues. Patient feels like she empty her bowels completely when having a bowel movement. Patient denies melena, hematochezia, unintentional weight loss or ribbon like stools. 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 Cellulitis Cognitive deficits Migraine headache Recurrent UTI Neurofibromatosis Breast CA Surgical History History of lumpectomy of left breast (03/23/19) History of left breast biopsy (03/01/19) History of lithotripsy (03/2018) History of excision of mass (09/2017) History of local excision of skin lesion (08/17/17) History of right breast biopsy (08/2015) History of bilateral breast biopsy (06/27/15) History of tubal ligation History of excision of lesion Family History Father History of diabetes mellitus CAD (coronary artery disease) Mother History of hypertension History of diabetes mellitus Social History Household Members: Family Housing: Apartment Alcohol intake: never Patient Tobacco Use Status: Never used Tobacco e-Cigarette/Vaping Use: Never Used Second Hand Smoke Exposure: No service: No Current occupational status: unemployed Cognitive needs: No Hearing needs: No Vision needs: Yes (Glasses) Review of Systems Const Denies weight gain and Denies weight loss ENT Reports no additional complaints, Reports dysphagia and Denies odynophagia Card Reports no additional complaints Resp Reports no additional complaints GI Reports abdominal pain (Epigastric), Denies belching, Denies melena, Reports bloating, Denies change in bowel habits, Reports dysphagia, Denies excessive flatus, Reports dyspepsia, Reports heartburn, Denies diarrhea, Denies loose stools, Denies nausea, Denies odynophagia and Denies vomiting Musc Reports no additional complaints Neuro Reports no additional complaints Psych Reports no additional complaints Endo Reports no additional complaints Physical Exam Vital Signs: Last Vital Signs Pulse 66 01/08/25 13:15 BP 142/76 H 01/08/25 13:15 Pulse Ox 99 01/08/25 13:15 Oxygen Delivery Method Room Air 01/08/25 13:15 BMI result Body Mass Index 28.5 Const General: healthy appearing, no acute distress and well developed Nutritional Appearance: well nourished Orientation/consciousness: patient oriented x3 Resp Effort & Inspection: normal respiratory effort, able to speak in complete sentences, no tracheal deviation and symmetric chest movement Auscultation: clear to auscultation bilaterally Cardio Rate: regular rate GI Inspection: Yes normal to inspection and No distended Palpation (GI): Soft to palpation, not firm, nontender and No hepatosplenomegaly present Auscultation: normal bowel sounds General: Yes no CVA tenderness Back/Spine/Pelvis Back: no CVA tenderness Skin General skin exam: elasticity normal, turgor normal and dry skin Neuro General: patient oriented x3 Psych Appearance: grossly normal Mental Status: mental status grossly normal Assessment & Plan Assessment & Plan (1) Elevated LFTs: Code(s): R79.89 - Other specified abnormal findings of blood chemistry Category: Medical (2) Abdominal pain: Code(s): R10.9 - Unspecified abdominal pain Category: Medical Qualifiers: Abdominal location: epigastric Qualified Code(s): R10.13 - Epigastric pain (3) Postprandial epigastric pain: Code(s): R10.13 - Epigastric pain (4) Postprandial abdominal bloating: Code(s): R14.0 - Abdominal distension (gaseous) (5) GERD (gastroesophageal reflux disease): Code(s): K21.9 - Gastro-esophageal reflux disease without esophagitis Qualifiers: Esophagitis presence: esophagitis presence not specified Qualified Code(s): K21.9 - Gastro-esophageal reflux disease without esophagitis (6) Dysphagia: Code(s): R13.10 - Dysphagia, unspecified Qualifiers: Dysphagia type: pharyngoesophageal phase Qualified Code(s): R13.14 - Dysphagia, pharyngoesophageal phase Plan Will check transglutaminase, lipase. Will test for H pylori today. Patient will be treated empirically if positive. Will send her for upper GI with barium swallow. I will start her on omeprazole 20 mg daily. Discussed with patient avoiding dietary triggers in late night snacking. Staying upright for minimal 3 hours after meals discussed with patient. Patient will return in 3 months if continue with symptoms she will be sent for upper GI. Patient never had colonoscopy before. We discussed today about sending her colonoscopy as well and patient agrees. Both patient and her mom are agreeable to plan of care and verbalize understanding of instructions. They were given the opportunity to ask questions and all questions answered. Thank you for allowing me to participate in her care Orders: Orders Transglutaminase Ab IgG Today R10.9 - Unspecified abdominal pain Transglutaminase IgA Today R10.9 - Unspecified abdominal pain Lipase Today R10.9 - Unspecified abdominal pain H Pylori Breath Test Today K21.9 - Gastro-esophageal reflux disease without esophagitis FL upper GI w air w Ba Swallow Today K21.9 - Gastro-esophageal reflux disease without esophagitis Medications: New omeprazole 20 mg PO DAILY 30 caps 3RF K21.9 - Gastro-esophageal reflux disease without esophagitis Coding Level of Care Code New Pt Level 4 (53657) Complex EM visit Add On G2211 Diagnoses Elevated LFTs R79.89 Epigastric pain R10.13 Abdominal location: epigastric Postprandial epigastric pain R10.13 Postprandial abdominal bloating R14.0 Gastroesophageal reflux disease, unspecified whether esophagitis present K21.9 Esophagitis presence: esophagitis presence not specified Pharyngoesophageal dysphagia R13.14 Dysphagia type: pharyngoesophageal phase Time Spent (min) 50 Comment 35 minutes spent with patient and additional 15 minutes spent reviewing her records
[2025-01-08 13:15] VITALS: BP 142/76; PULSE 66; O2SAT 99; BMI 28.5
== END 2025-01-08 13:39 | disposition home or self-care (01) ==
LOC: HO.HGI 13:13
PROVIDERS: PCP Internal Medicine; Visit Provider Nurse Practitioner Family
DX: R79.89 Other specified abnormal findings of blood chemistry (principal); R10.13 Epigastric pain; R14.0 Abdominal distension (gaseous); K21.9 Gastro-esophageal reflux disease without esophagitis; R13.14 Dysphagia, pharyngoesophageal phase
CPT/HCPCS: 99204; G2211

== ENCOUNTER → 2025-01-08 13:13 | Outpatient (BNVA) | payer OTHER, SELFPAY | PROVIDERS: PCP Internal Medicine; Visit Provider Nurse Practitioner Family | DX: K21.9 Gastro-esophageal reflux disease without esophagitis (principal); R10.13 Epigastric pain; R14.0 Abdominal distension (gaseous); R13.14 Dysphagia, pharyngoesophageal phase; R79.89 Other specified abnormal findings of blood chemistry | CPT/HCPCS: 99202 ==

== ENCOUNTER 2025-02-27 08:59 | Outpatient (REF) | payer OTHER, SELFPAY ==
[2025-02-27 10:10] LABS: Lipase 13 U/L (8-78)
[2025-02-28 14:09] LABS: Transglutaminase Ab IgG <1.0 U/mL
== END 2025-02-27 09:00 | disposition home or self-care (01) ==
LOC: HO.LAB 08:59
PROVIDERS: Absent Provider Internal Medicine; PCP Internal Medicine; Visit Provider Nurse Practitioner Family
DX: R10.9 Unspecified abdominal pain (principal)
CPT/HCPCS: 36415; 83690; 86364; 86580

== ENCOUNTER 2025-02-27 09:40 | Outpatient (AMB) | payer OTHER, SELFPAY ==
--- NOTE | 2025-02-27 10:11 | AM.OFFVISNUR ---
Intake Visit Reasons: TB Implant Allergies No Known Allergies (No Known Allergies*) Allergy (Verified 01/08/25 13:15) Office Meds tuberculin PPD 5 tub. unit/0.1 mL intradermal injection solution Performing Provider: Rhiannon Bloom MD Performing [facility]: [facility] Administered by: Tara Olmstead LPN on 02/27/25 10:05 Dose Route Admin Location Dispensed Lot Number Expiration Date [facility] Animal Tech 0.1 mL intradermal left forearm 0.1 mL [id number] 06/09/26 98020-756-21 [employer] Total Dispensed Waste 0.1 mL 0 % Assessment & Plan Assessment & Plan Orders: Orders AMB PPD Planted Today Z11.1 - Encounter for screening for respiratory tuberculosis Coding
== END 2025-02-27 10:10 | disposition home or self-care (01) ==
PROVIDERS: PCP Internal Medicine; Visit Provider Internal Medicine
DX: Z11.1 Encounter for screening for respiratory tuberculosis (principal)